=== PATIENT | female | born 1960 | race African-American/Black ===

== ENCOUNTER → 2016-10-11 | Outpatient (CLI) | payer MEDICAID, MEDICARE ==
--- NOTE | 2016-10-11 15:08 | RADIOLOGY REPORT (SQ) ---
EXAM DESCRIPTION: NM LIVER/SPLEEN SCAN COMPLETED DATE/TIME: 10/11/2016 2:18 pm REASON FOR STUDY: THROMBOCYTOPENIA D69.6 THROMBOCYTOPENIA, UNSPECIFIED K74.60 UNSPECIFIED CIRRHOSI S OF LIVER COMPARISON: None. RADIONUCLIDE AND DOSE: 5.22 millicuries Tc-99m Sulfur Colloid. The route of agent administration: Intravenous ADDITIONAL DRUGS AND DOSES: None. TECHNIQUE: Images of the upper abdomen acquired in multiple projections following radionuclide admin istration. LIMITATIONS: None. FINDINGS: Liver: Normal size. Homogeneous activity. No focal lesions. Spleen: Normal size. Homogeneous activity. No focal lesions. Other: No other significant findings. IMPRESSION: NORMAL LIVER SPLEEN SCAN. TECHNICAL DOCUMENTATION: JOB ID: [id number] [employer]- All Rights Reserved
== END ==
LOC: RAD 10:50
PROVIDERS: ATTEND Internal Medicine Medical Oncology
DX: D69.6 Thrombocytopenia, unspecified (principal); K74.60 Unspecified cirrhosis of liver
CPT/HCPCS: 78215; A9541

== ENCOUNTER → 2016-11-23 | Outpatient (CLI) | payer MEDICARE ==
--- NOTE | 2016-11-24 11:00 | WOMENS IMAGING REPORT ---
EXAM DESCRIPTION: BILAT SCREENING MAMMO W/CAD COMPLETED DATE/TIME: 11/23/2016 11:40 am REASON FOR STUDY: Z12.31, ROUTINE SCREENING MAMMO Z12.31 ENCNTR SCREEN MAMMOGRAM FOR MALIGNANT NEOP LASM OF LOTUS COMPARISON: Multiple since 2010 TECHNIQUE: Standard craniocaudal and mediolateral oblique views of each breast recorded using digita l acquisition. LIMITATIONS: Pacemaker artifact right far upper outer quadrant on the MLO view FINDINGS: Findings present which are benign by mammographic criteria. No suspicious masses, calcifi cations or architectural distortion. Pertinent benign findings: Stable calcifications bilaterally Read with the assistance of CAD. .[facility] - R2 Cenova Version 1.3 .[facility] - R2 Cenova Version 1.3 .[facility] - R2 Cenova Version 2.4 .[facility] - R2 Cenova Version 2.4 .[facility] - R2 Lamination Assembler Version 9.2 Benign mammographic findings may include one or more of the following: Smooth masses, popcorn/rim/co arse calcifications, asymmetries, post-procedure changes, and lesions with long-standing stability. IMPRESSION: BENIGN MAMMOGRAPHIC FINDINGS. BIRADS 2 BREAST DENSITY: c. The breasts are heterogeneously dense, which may obscure small masses. BIRAD: 2 BENIGN FINDING(S) RECOMMENDATION: ROUTINE SCREENING Please consider bilateral screening tomosynthesis in November 2017 given heterogeneously dense tissue COMMENT: The patient has been notified of the results by letter per SA requirements. Additional no tification policies are in place for contacting patient with suspicious or incomplete findings. Quality ID #[id number]: The [employer] recommends an annual screening mammogram for women aged 40 years or over. This facility utilizes a reminder system to ensure that all patients receive reminder letters, and/or direct phone calls for appointments. This includes reminders for routine scr eening mammograms, diagnostic mammograms, or other Breast Imaging Interventions when appropriate. Th is patient will be placed in the appropriate reminder system. The [employer] (ACR) has developed recommendations for screening MRI of the breast s in certain patient populations, to be used in conjunction with mammography. Breast MRI surveillanc e may be appropriate for women with more than 20% lifetime risk of developing breast cancer as deter mined by genetic testing, significant family history of the disease, or history of mantle radiation f or Hodgkins Disease. ACR Practice Guidelines 2008. TECHNICAL DOCUMENTATION: FINDING NUMBER: (1) ASSESSMENT: (1) JOB ID: [id number] [email or web address] [facility] [email or web address]- All Rights Reserved
== END ==
LOC: WI 13:30
PROVIDERS: ATTEND Nurse Practitioner
DX: Z12.31 Encounter for screening mammogram for malignant neoplasm of breast (principal)
CPT/HCPCS: 77067; G0202

== ENCOUNTER → 2017-01-30 | Outpatient (CLI) | payer MEDICARE ==
--- NOTE | 2017-01-30 10:02 | RADIOLOGY REPORT (SQ) ---
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 Images stored on PACS. LIMITATIONS: None. FINDINGS: RIGHT CAROTID CCA Velocities: Within normal limits. ICA Velocities Peak systolic 0.54 m/s. End diastolic 0.18 m/s. Proximal ICA/CCA peak systolic ratio 3.0. There is calcific plaque shadowing the origin of the right internal carotid artery at the bifurcation . Turbulent flow is present. Although the peak systolic and end-diastolic velocities distal to the plaque are within normal limits, the ICA to CCA ratio is elevated, and 50 to 69% stenosis right ICAs is suspected within the plaque. LEFT CAROTID CCA Velocities: Within normal limits. ICA Velocities Peak systolic 0.64 m/s. End diastolic 0.22 m/s. Proximal ICA/CCA peak systolic ratio 3.2. There is calcific plaque shadowing the origin of the left internal carotid artery at the bifurcation. Turbulent flow is present. Although the peak systolic and end-diastolic velocities distal to the p laque are within normal limits, the ICA to CCA ratio is elevated, and 50 to 69% stenosis left ICAs is suspected within the plaque. VERTEBRAL ARTERIES: Antegrade flow. Normal waveforms. SUBCLAVIAN ARTERIES: Not evaluated OTHER: No other significant finding. IMPRESSION: Very heavy carotid bifurcation calcifications which shadow origins of the right and left ICA. ICA to CCA ratio suggests 50 to 69% diameter narrowing. Correlation with cross-sectional imag ing with CTA or MRA is indicated for followup COMMENT: Quality ID #[id number]: Velocity criteria are extrapolated from the diameter data as defined by t he Society of Radiologists in Ultrasound Consensus Conference. Radiology 2003: 229; 340-346. TECHNICAL DOCUMENTATION: JOB ID: [id number]- All Rights Reserved
--- NOTE | 2017-02-02 10:00 | XCELERA REPORT ---
[address] [address] Transthoracic Echocardiogram Report Name: SARAH RACHEL Age: 56 yrs Gender: Female : 1960 Patient Status: Outpatient Patient Location: Study Date: 01/30/2017 08:24 AM Height: 67 in Weight: 163 lb BSA: 1.9 m2 Procedure: A complete two-dimensional transthoracic echocardiogram was performed (2D, M-mode, spectral and color flow Doppler). The study was technically difficult with many images being suboptimal in quality. Reason For Study: CEREBRAL INFARCTION Ordering Physician: THIAGO COLIN Performed By: Shawnee Montes De Oca Interpretation Summary The study was technically difficult with many images being suboptimal in quality. The Ejection Fraction estimate is 35-40% Left ventricular systolic function is moderately reduced. Doppler measurements suggest pseudonormalized left ventricular relaxation, which is associated with grade II/IV or mild to moderate diastolic dysfunction Not all wall segments were well visualized. Septal motion is consistent with post-operative state There is mild concentric left ventricular hypertrophy. The left ventricle is grossly normal size. The right ventricular systolic function is mildly reduced. The left atrium is moderately dilated. The right atrium is moderately dilated. There is a moderate amount of mitral regurgitation Probable Mild Mitral stenosis There is moderate to severe aortic stenosis There is a peak gradient of 45, mean 25 mm of Hg. There is a moderate to severe amount of aortic regurgitation There is a severe amount of tricuspid regurgitation There is mild to moderate pulmonary hypertension by echo Right ventricular systolic pressure is estimated to be elevated at 40- 50mmHg. The pulmonic valve is not well visualized. The aortic root is not well visualized. The inferior vena cava appeared dilated and decreased < 50% with respiration (RAP 15-20 mmHg) Minimal pericardial effusion. Pacemaker wire noted. Consider ARMIDA if clinically indicated. May consider mobile cardiac telemetry monitoring (MCT) for ruling out transient AFIB. MMode/2D Measurements & Calculations RVDd: 3.6 cm LVIDd: 5.8 cm FS: 10.7 % MV Diam: IVSd: 1.3 cm LVIDs: 5.2 cm EDV(Teich): 2.0 cm LVPWd: 1.3 cm 167.6 ml ESV(Teich): 129.2 ml EF(Teich): 22.9 % Ao root diam: LVOT diam: 2.0 cm LA A2Cs: 29.9 cm2LA A4Cs: 2.5 cm LVOT area: 3.2 cm2 29.1 cm2 Ao root area: 5.1 cm2 LA dimension: 4.9 cm LA length: 6.3 cm LA Vol Index (BP): LA Volume: 118.1 ml 63.7 ml/m2 Time Measurements MM R-R int: 0.88 sec MM HR: 68.0 BPM Doppler Measurements & Calculations MV E max lizette: MV V2 max: MV P1/2t max lizette: Ao V2 max: 132.0 cm/sec 179.2 cm/sec 134.5 cm/sec 348.2 cm/sec MV A max lizette: MV max PG: MV P1/2t: 66.8 msec Ao max P.7 cm/sec 12.8 mmHg MVA(P1/2t): 3.3 cm2 48.5 mmHg MV E/A: 0.89 MV V2 mean: MV dec slope: Ao V2 mean: 99.8 cm/sec 234.4 cm/sec MV mean P.7 cm/sec2 Ao mean P.0 mmHg 26.1 mmHg MV V2 VTI: 49.9 cm Ao V2 VTI: MV area (1 diam): 75.1 cm 3.2 cm2 ELVIS(I,D): 0.74 cm2 MVA(VTI): 1.1 cm2 ELVIS(V,D): MV Flow area (1diam): 3.2 cm2 0.70 cm2 AI max lizette: LV V1 max PG: MR max lizette: MR(RF 1 diam): 426.2 cm/sec 2.4 mmHg 546.8 cm/sec 38.3 % AI max PG: LV V1 mean PG: MR max P.7 mmHg 1.2 mmHg 119.6 mmHg AI dec slope: LV V1 max: 370.6 cm/sec2 77.5 cm/sec AI P1/2t: LV V1 mean: 336.9 msec 49.6 cm/sec LV V1 VTI: 17.7 cm SV(MV 1 diam): PA V2 max: TR max lizette: RF(MV,Ao)(1 158.8 ml 83.9 cm/sec 297.5 cm/sec diam): -1.4 SI(MV 1 diam): PA max PG: TR max P.4 mmHgRF(MV,LVOT) 85.6 ml/m2 2.8 mmHg (1diam): 0.65 SV(LVOT): 55.8 ml Left Ventricle The left ventricle is grossly normal size. There is mild concentric left ventricular hypertrophy. Left ventricular systolic function is moderately reduced. The Ejection Fraction estimate is 35-40%. Doppler measurements suggest pseudonormalized left ventricular relaxation, which is associated with grade II/IV or mild to moderate diastolic dysfunction. Not all wall segments were well visualized. Septal motion is consistent with post- operative state. Right Ventricle The right ventricle is mildly dilated. The right ventricular systolic function is mildly reduced. Atria The right atrium is moderately dilated. The left atrium is moderately dilated. Interarterial septum not well visualized and not well dopplered. Cannot comment on ASD/PFO presence. Mitral Valve There is mild mitral annular calcification. There is mild mitral leaflet calcification. Probable Mild Mitral stenosis. There is a moderate amount of mitral regurgitation. Aortic Valve The aortic valve is moderately calcified. There is moderate to severe aortic stenosis. There is a peak gradient of 45, mean 25 mm of Hg. There is a moderate to severe amount of aortic regurgitation. Tricuspid Valve The tricuspid valve is not well visualized secondary to technical limitations. There is no tricuspid stenosis. There is a severe amount of tricuspid regurgitation. There is mild to moderate pulmonary hypertension by echo. Right ventricular systolic pressure is estimated to be elevated at 40-50mmHg. Pulmonic Valve The pulmonic valve is not well visualized. Great Vessels The aortic root is not well visualized. The inferior vena cava appeared dilated and decreased < 50% with respiration (RAP 15-20 mmHg). Effusions Minimal pericardial effusion. Incidental Findings Pacemaker wire noted. Consider ARMIDA if clinically indicated. May consider mobile cardiac telemetry monitoring (MCT) for ruling out transient AFIB. : THIAGO COLIN > Nadine Grubbs
== END ==
LOC: SP 07:32
PROVIDERS: ATTEND Internal Medicine
DX: I63.40 Cerebral infarction due to embolism of unspecified cerebral artery (principal)
CPT/HCPCS: 93306; 93880

== ENCOUNTER 2017-02-10 06:14 | Emergency (ER) | payer MEDICARE ==
--- NOTE | 2017-02-10 07:31 | ER Document Report ---
HPI - HPI Patient complains to provider of: can't hear out of right ear this morning Onset: This morning Onset/Duration: Sudden Pain Level: 4 Context: 56-year-old female woke up this morning not able to hear out of her right ear. She thinks that there is something in her ear. No recent upper respiratory infection. No fever. She feels like something is draining in her ear. Associated Symptoms: None Exacerbated by: Denies Relieved by: Denies Similar symptoms previously: No Recently seen / treated by doctor: No - ROS ROS below otherwise negative: Yes Systems Reviewed and Negative: Yes All other systems reviewed and negative - REPRODUCTIVE Reproductive: DENIES: : - DERM Skin Color: Normal Past Medical History - General Information source: Patient - Social History Smoking Status: Current Every Day Smoker Frequency of alcohol use: None Drug Abuse: None Lives with: Family Family History: CAD - Past Medical History Cardiac Medical History: Reports: Hx Heart Attack - 2008 2014, Hx Hypercholesterolemia, Hx Hypertension, Hx Heart Murmur Pulmonary Medical History: Reports: Hx Pneumonia Renal/ Medical History: Reports: Hx End Stage Renal Disease. Denies: Hx Peritoneal Dialysis GI Medical History: Musculoskeltal Medical History: Infectious Medical History: Reports: Hx HIV - 2006 Past Surgical History: Reports: Hx Cardiac Surgery - pacemaker/defib. Denies: Hx Hysterectomy - Immunizations Hx Diphtheria, Pertussis, Tetanus Vaccination: Yes Hx Pneumococcal Vaccination: 02/18/14 Vertical Provider Document - CONSTITUTIONAL Agree With Documented VS: Yes Exam Limitations: No Limitations - INFECTION CONTROL TRAVEL OUTSIDE OF THE [place] IN LAST 30 DAYS: No - HEENT HEENT: Normal ENT Exam Notes: Rinne: BC greater than AC right ear. AC greater than BC left ear. Escamilla test: Lateralization of sound to left ear. - NECK Neck: Supple. negative: Lymphadenopathy-Left, Lymphadenopathy-Right - RESPIRATORY O2 Sat by Pulse Oximetry: 99 - NEURO Level of Consciousness: Awake, Alert, Appropriate - DERM Integumentary: Warm, Dry, No Rash Course - Vital Signs Vital signs: Temp Pulse Resp BP Pulse Ox 97.5 F 79 19 134/60 H 99 02/10/17 06:23 02/10/17 06:23 02/10/17 06:23 02/10/17 06:23 02/10/17 06:23 Discharge - Discharge Clinical Impression: decreased air conduction hearing rt ear Condition: Good Disposition: HOME, SELF-CARE Instructions: ENT Additional Instructions: call for appointment with Ears Nose and Throat doctor next week to er if you develop any new or worsening symptoms Please complete the patient satisfaction survey if you get one, and return it.. If you do not receive a survey, then you can go to the [facility] website, [email or web address] and place your comments about your very good care. Thank you very much. It was a pleasure being your medical provider today.
[2017-02-10 08:01] VITALS: BP 126/57
== END 2017-02-10 08:00 | disposition home or self-care (01) ==
LOC: ER 06:14
DX: H91.91 Unspecified hearing loss, right ear (principal); F17.200 Nicotine dependence, unspecified, uncomplicated
CPT/HCPCS: 99282

== ENCOUNTER 2017-02-27 11:42 | Outpatient (CLI) | payer MEDICARE ==
[~2017-02-27 11:42] MED LIST: ACETAMINOPHEN 325 MG TABLET PO PRN; DIPHENHYDRAMINE HCL 25 MG CAPSULE PO PRN; FUROSEMIDE INJ/PF 20 MG/2 ML SDV IV PRN
[2017-02-27 12:19] LABS: HEMATOCRIT 25.5 % (36.0-47.0); HEMOGLOBIN 8.3 g/dL (12.0-15.5); HGB HCT DIFFERENCE -0.6; MEAN CORPUSCULAR HEMOGLOBIN 32.7 pg (27.0-33.4); MEAN CORPUSCULAR HGB CONC 32.7 g/dL (32.0-36.0); MEAN CORPUSCULAR VOLUME 100 fl (80-97); RED BLOOD COUNT 2.55 10^6/uL (3.72-5.28); RED CELL DISTRIBUTION WIDTH 15.3 % (11.5-14.0); WHITE BLOOD COUNT 3.9 10^3/uL (4.0-10.5)
[2017-02-27] MEDS ORDERED: NORMAL SALINE 250 ML IV PRN (12:23)
[2017-02-27 17:58] VITALS: BP 112/55
[2017-02-27 18:58] LABS: HEMATOCRIT 32.6 % (36.0-47.0); HGB HCT DIFFERENCE 0.4; MEAN CORPUSCULAR HEMOGLOBIN 32.2 pg (27.0-33.4); MEAN CORPUSCULAR HGB CONC 33.6 g/dL (32.0-36.0); RED BLOOD COUNT 3.41 10^6/uL (3.72-5.28); RED CELL DISTRIBUTION WIDTH 17.5 % (11.5-14.0); WHITE BLOOD COUNT 4.3 10^3/uL (4.0-10.5)
[2017-02-27 19:31] LABS: MEAN CORPUSCULAR VOLUME 96 fl (80-97)
== END 2017-02-27 18:54 | disposition home or self-care (01) ==
LOC: II 11:42 → 5TH 11:49 → II 18:54
PROVIDERS: ATTEND Internal Medicine Medical Oncology
PROC: 30233N1 Transfusion of Nonautologous Red Blood Cells into Peripheral Vein, Percutaneous Approach (ICD-10-PCS; principal; 2017-02-27)
DX: D64.9 Anemia, unspecified (principal); B20 Human immunodeficiency virus [HIV] disease; N18.6 End stage renal disease; K74.60 Unspecified cirrhosis of liver
CPT/HCPCS: 86900; 86901; 36415; 36430; 86850; 85027; 86920; P9016; A9270 ×2

== ENCOUNTER 2017-04-19 11:12 | Outpatient (CLI) | payer MEDICARE ==
[2017-04-19 11:54] LABS: HEMATOCRIT 19.9 % (36.0-47.0); HGB HCT DIFFERENCE 0.2; MEAN CORPUSCULAR HEMOGLOBIN 33.4 pg (27.0-33.4); MEAN CORPUSCULAR HGB CONC 33.7 g/dL (32.0-36.0); MEAN CORPUSCULAR VOLUME 99 fl (80-97); RED BLOOD COUNT 2.01 10^6/uL (3.72-5.28); RED CELL DISTRIBUTION WIDTH 15.8 % (11.5-14.0)
[2017-04-19 12:24] LABS: HEMOGLOBIN 6.7 g/dL (12.0-15.5)
[2017-04-19] MEDS ORDERED: NORMAL SALINE 250 ML IV PRN (12:51)
[2017-04-19 22:01] VITALS: BP 116/47
== END 2017-04-19 22:18 | disposition home or self-care (01) ==
LOC: II 11:12 → 2N 11:21 → II 22:18
PROVIDERS: ATTEND Internal Medicine Nephrology
PROC: 30233N1 Transfusion of Nonautologous Red Blood Cells into Peripheral Vein, Percutaneous Approach (ICD-10-PCS; principal; 2017-04-19)
DX: N18.9 Chronic kidney disease, unspecified (principal); D63.1 Anemia in chronic kidney disease
CPT/HCPCS: 86900; 86901; 36415; 36430; 86850; 86920; P9016; A9270 ×2; J1940

== ENCOUNTER 2017-05-01 10:29 | Outpatient (CLI) | payer MEDICARE ==
[2017-05-01 10:52] LABS: HEMATOCRIT 20.4 % (36.0-47.0); MEAN CORPUSCULAR HEMOGLOBIN 32.7 pg (27.0-33.4); MEAN CORPUSCULAR HGB CONC 33.3 g/dL (32.0-36.0); MEAN CORPUSCULAR VOLUME 98 fl (80-97); RED BLOOD COUNT 2.07 10^6/uL (3.72-5.28); RED CELL DISTRIBUTION WIDTH 18.2 % (11.5-14.0); WHITE BLOOD COUNT 4.7 10^3/uL (4.0-10.5)
[2017-05-01 11:24] LABS: HEMOGLOBIN 6.8 g/dL (12.0-15.5)
[2017-05-01] MEDS ORDERED: NORMAL SALINE 250 ML IV PRN (11:26)
[2017-05-01 15:50] VITALS: BP 137/61
[2017-05-01 16:57] LABS: HEMATOCRIT 25.6 % (36.0-47.0); HEMOGLOBIN 8.6 g/dL (12.0-15.5); HGB HCT DIFFERENCE 0.2; MEAN CORPUSCULAR HEMOGLOBIN 31.3 pg (27.0-33.4); MEAN CORPUSCULAR HGB CONC 33.5 g/dL (32.0-36.0); RED BLOOD COUNT 2.74 10^6/uL (3.72-5.28); RED CELL DISTRIBUTION WIDTH 19.5 % (11.5-14.0); WHITE BLOOD COUNT 5.3 10^3/uL (4.0-10.5)
[2017-05-01 17:27] LABS: MEAN CORPUSCULAR VOLUME 94 fl (80-97)
== END 2017-05-01 16:55 | disposition home or self-care (01) ==
LOC: II 10:29 → 5TH 11:01 → II 16:55
PROVIDERS: ATTEND Internal Medicine Medical Oncology
PROC: 30233N1 Transfusion of Nonautologous Red Blood Cells into Peripheral Vein, Percutaneous Approach (ICD-10-PCS; principal; 2017-05-01)
DX: D64.9 Anemia, unspecified (principal); N18.6 End stage renal disease
CPT/HCPCS: 86900; 86901; 36415; 36430; 86850; 85027; 86920; 96374; P9016; A9270 ×2; J1940

== ENCOUNTER 2017-05-11 10:35 | Emergency (ER) | payer MEDICARE ==
--- NOTE | 2017-05-11 11:12 | ER Document Report ---
ED Medical Screen (RME) - General Mode of Arrival: Ambulatory Information source: Patient TRAVEL OUTSIDE OF THE [place] IN LAST 30 DAYS: No <ELEAZAR LEVIN - Last Filed: 05/11/17 11:32> <DARRON COYLE - Last Filed: 05/11/17 13:04> - General Chief Complaint: Rectal Bleeding Stated Complaint: RECTAL BLEEDING Time Seen by Provider: 05/11/17 10:59 Notes: Patient is a 56 year old female presenting to the emergency department complaining of blood in stool onset a week. Patient describes the stool as black and sticky. Patient states she was receiving dialysis with Dr. Johnston this morning when she was instructed to come to the ER for her symptom. Patient states she has had numerous blood transfusion in the past, her most recent being 10 days ago. Patients PCP is Dr. Colin. I have greeted and performed a rapid initial assessment of this patient. A comprehensive ED assessment and evaluation of the patient, analysis of test results and completion of the medical decision making process will be conducted by additional ED providers. (ELEAZAR LEVIN) - Related Data Allergies/Adverse Reactions: Penicillins Allergy (Severe, Verified 05/11/17 10:37) Rash adhesive Allergy (Verified 05/11/17 10:37) cinacalcet [From Sensipar] Allergy (Verified 05/11/17 10:37) Past Medical History - Social History Chew tobacco use (# tins/day): No Frequency of alcohol use: None Drug Abuse: None - Past Medical History Cardiac Medical History: Reports: Hx Heart Attack - 2008 2014, Hx Hypercholesterolemia, Hx Hypertension, Hx Heart Murmur Denies: Hx Coronary Artery Disease Pulmonary Medical History: Reports: Hx Pneumonia Denies: Hx Asthma, Hx Bronchitis, Hx COPD, Hx Tuberculosis Neurological Medical History: Denies: Hx Cerebrovascular Accident, Hx Seizures Renal/ Medical History: Reports: Hx End Stage Renal Disease. Denies: Hx Peritoneal Dialysis GI Medical History: Musculoskeltal Medical History: Denies Hx Arthritis Psychiatric Medical History: Denies: Hx Depression Infectious Medical History: Reports: Hx HIV - 2006 Past Surgical History: Reports: Hx Cardiac Surgery - pacemaker/defib. Denies: Hx Hysterectomy - Immunizations Hx Diphtheria, Pertussis, Tetanus Vaccination: No History of Influenza Vaccine for 02/2017 - 07/2017 Season: Yes Influenza Administration Date for 02/2017 - 07/2017 Season: 02/18/17 <ELEAZAR LEVIN - Last Filed: 05/11/17 11:32> Physical Exam <ELEAZAR LEVIN - Last Filed: 05/11/17 11:32> <DARRON COYLE - Last Filed: 05/11/17 13:04> - Vital signs Vitals: Temp Pulse Resp BP Pulse Ox 97.7 F 96 20 114/54 L 99 05/11/17 10:41 05/11/17 10:41 05/11/17 10:41 05/11/17 10:41 05/11/17 10:41 - Notes Notes: GENERAL: Alert, interacts well. No acute distress. ABDOMEN: Soft, non-tender. Non-distended. Bowel sounds present in all 4 quadrants. (ELEAZAR LEVIN) Right upper extremity AV fistula has palpable thrill. (DARRON COYLE) Course - Laboratory Result Diagrams: 05/11/17 12:50 05/11/17 11:56 <DARRON COYLE - Last Filed: 05/11/17 13:04> - Vital Signs Vital signs: Temp Pulse Resp BP Pulse Ox 97.7 F 96 20 114/54 L 99 05/11/17 10:41 05/11/17 10:41 05/11/17 10:41 05/11/17 10:41 05/11/17 10:41 - Laboratory Laboratory results interpreted by me: 05/11/17 11:56 Potassium 3.4 L Creatinine 3.32 H Est GFR ( Amer) 17 L Est GFR (Non-Af Amer) 14 L Calcium 7.9 L Alkaline Phosphatase 130 H Total Protein 5.4 L Albumin 2.7 L Doctor's Discharge <ELEAZAR LEVIN - Last Filed: 05/11/17 11:32> <DARRON COYLE - Last Filed: 05/11/17 13:04> - Discharge Referrals: THIAGO COLIN MD [Primary Care Provider] - Follow up as needed Scribe Documentation - Scribe Written by Scribe:: Yolis Collins, 05/11/2017 11:31 acting as scribe for :: Shaila <LEEAZAR LEVIN - Last Filed: 05/11/17 11:32>
[2017-05-11 12:49] LABS: ALANINE AMINOTRANSFERASE 21 U/L (9-52); ALBUMIN 2.7 g/dL (3.5-5.0); ALKALINE PHOSPHATASE 130 U/L (38-126); ANION GAP 9 (5-19); ASPARTATE AMINO TRANSFERASE 28 U/L (14-36); BILIRUBIN,DIRECT 0.2 mg/dL (0.0-0.4); BILIRUBIN,TOTAL 0.2 mg/dL (0.2-1.3); BLOOD UREA NITROGEN 17 mg/dL (7-20); CALCIUM 7.9 mg/dL (8.4-10.2); CARBON DIOXIDE 30 mmol/L (22-30); CHLORIDE 102 mmol/L (98-107); CREATININE RESULT 3.32 mg/dL (0.52-1.25); GLUCOSE 100 mg/dL (75-110); POTASSIUM 3.4 mmol/L (3.6-5.0); SODIUM 141.1 mmol/L (137-145); TOTAL PROTEIN 5.4 g/dL (6.3-8.2)
--- NOTE | 2017-05-11 12:53 | ER Document Report ---
ED General - General Chief Complaint: Rectal Bleeding Stated Complaint: RECTAL BLEEDING Time Seen by Provider: 05/11/17 10:59 Mode of Arrival: Ambulatory Information source: Patient Notes: 56-year-old female on hemodialysis history of anemia GI bleeds presents with complaints of rectal bleeding of 1 month duration with generalized weakness. Patient denies any fevers or chills. Patient denies any shortness of breath denies any chest pain. Patient notes she had dialysis today. TRAVEL OUTSIDE OF THE [place] IN LAST 30 DAYS: No - HPI Onset: Other Onset/Duration: Persistent Quality of pain: No pain Severity: Mild Pain Level: Denies Associated symptoms: Weakness Exacerbated by: Denies Relieved by: Denies Similar symptoms previously: Yes Recently seen / treated by doctor: Yes - Related Data Allergies/Adverse Reactions: Penicillins Allergy (Severe, Verified 05/11/17 10:37) Rash adhesive Allergy (Verified 05/11/17 10:37) cinacalcet [From Sensipar] Allergy (Verified 05/11/17 10:37) Past Medical History - General Information source: Patient - Social History Smoking Status: Current Every Day Smoker Cigarette use (# per day): Yes Chew tobacco use (# tins/day): No Smoking Education Provided: No Frequency of alcohol use: None Drug Abuse: None Family History: CAD Patient has suicidal ideation: No Patient has homicidal ideation: No - Past Medical History Cardiac Medical History: Reports: Hx Heart Attack - 2008 2014, Hx Hypercholesterolemia, Hx Hypertension, Hx Heart Murmur Denies: Hx Coronary Artery Disease Pulmonary Medical History: Reports: Hx Pneumonia Denies: Hx Asthma, Hx Bronchitis, Hx COPD, Hx Tuberculosis Neurological Medical History: Denies: Hx Cerebrovascular Accident, Hx Seizures Renal/ Medical History: Reports: Hx End Stage Renal Disease. Denies: Hx Peritoneal Dialysis GI Medical History: Musculoskeltal Medical History: Denies Hx Arthritis Psychiatric Medical History: Denies: Hx Depression Infectious Medical History: Reports: Hx HIV - 2006 Past Surgical History: Reports: Hx Cardiac Surgery - pacemaker/defib. Denies: Hx Hysterectomy - Immunizations Hx Diphtheria, Pertussis, Tetanus Vaccination: No Hx Pneumococcal Vaccination: 02/18/14 Review of Systems - Review of Systems Notes: REVIEW OF SYSTEMS: CONSTITUTIONAL : Denies fever, chills, or sweats. Denies recent illness. EENT: Denies eye, ear, throat, or mouth pain or symptoms. Denies nasal or sinus congestion or discharge. Denies throat, tongue, or mouth swelling or difficulty swallowing. CARDIOVASCULAR: Denies chest pain. Denies palpitations or racing or irregular heart beat. Denies ankle edema. RESPIRATORY: Denies cough, cold, or chest congestion. Denies shortness of breath, difficulty breathing, or wheezing. GASTROINTESTINAL: Admits to rectal bleeding GENITOURINARY: Denies difficulty urinating, painful urination, burning, frequency, blood in urine, or discharge. FEMALE GENITOURINARY: Denies vaginal bleeding, heavy or abnormal periods, irregular periods. Denies vaginal discharge or odor. MUSCULOSKELETAL: Denies back or neck pain or stiffness. Denies joint pain or swelling. SKIN: Denies rash, lesions or sores. HEMATOLOGIC : Denies easy bruising or bleeding. LYMPHATIC: Denies swollen, enlarged glands. NEUROLOGICAL: Denies confusion or altered mental status. Denies passing out or loss of consciousness. Denies dizziness or lightheadedness. Denies headache. Denies weakness or paralysis or loss of use of either side. Denies problems with gait or speech. Denies sensory loss, numbness, or tingling. Denies seizures. PSYCHIATRIC: Denies anxiety or stress. Denies depression, suicidal ideation, or homicidal ideation. ALL OTHER SYSTEMS REVIEWED AND NEGATIVE. PHYSICAL EXAMINATION: GENERAL: Well-appearing, well-nourished and in no acute distress. HEAD: Atraumatic, normocephalic. EYES: Pupils equal round and reactive to light, extraocular movements intact, conjunctiva are normal. ENT: Nares patent, oropharynx clear without exudates. Moist mucous membranes. NECK: Normal range of motion, supple without lymphadenopathy LUNGS: Crackles at the bases HEART: Regular rate and rhythm without murmurs ABDOMEN: Soft, nontender, nondistended abdomen. No guarding, no rebound. No masses appreciated. Female : deferred Musculoskeletal: Normal range of motion, no pitting or edema. No cyanosis. NEUROLOGICAL: Cranial nerves grossly intact. Normal speech, normal gait. Normal sensory, motor exams PSYCH: Normal mood, normal affect. SKIN: Warm, Dry, normal turgor, no rashes or lesions noted. Dictation was performed using [employer] voice recognition software Physical Exam - Vital signs Vitals: Temp Pulse Resp BP Pulse Ox 97.7 F 96 20 114/54 L 99 12/22/17 10:41 05/11/17 10:41 05/11/17 10:41 05/11/17 10:41 05/11/17 10:41 Course - Re-evaluation Re-evalutation: 05/11/17 12:53 Patient is adamant that she is here only for CT she does not want any blood work performed I have pleaded with her and she defers. There is no way to know if she is anemic if I do not have a CBC, she does not even wish to have an IV placed 05/11/17 13:49 nurse was able to ocnvince patient ot geta cbc, she is noted ot by anemic requiring transfusion. pt is adamant she does not get admitted, i have tried many times to plead with her , she will atleast let me place iv now to transfuse 05/11/17 15:13 CT findings were discussed with the patient, she is adamant that she is going to leave, I will give her some Lasix 05/11/17 15:18 After performing a Medical Screening Examination, I spoke with the patient at length in regards to leaving the hospital against medical advice. I do not believe the patient should leave but the patient is alert oriented x4, understands the risks and benefits of staying and leaving including disability and . Pt understands that he can return at any time for further care and is more than welcome to do so. Pt verbalizes this understanding. - Vital Signs Vital signs: Temp Pulse Resp BP Pulse Ox 97.7 F 96 20 114/54 L 99 05/11/17 10:41 05/11/17 10:41 05/11/17 10:41 05/11/17 10:41 05/11/17 10:41 - Laboratory Result Diagrams: 05/11/17 12:50 05/11/17 11:56 Laboratory results interpreted by me: 05/11/17 05/11/17 05/11/17 11:56 12:50 14:15 RBC 1.94 L Hgb 6.4 L Hct 19.6 L MCV 101 H RDW 20.4 H Plt Count 99 L Potassium 3.4 L Creatinine 3.32 H Est GFR ( Amer) 17 L Est GFR (Non-Af Amer) 14 L Calcium 7.9 L Alkaline Phosphatase 130 H Total Protein 5.4 L Albumin 2.7 L Crossmatch See Detail - Diagnostic Test Radiology reviewed: Image reviewed, Reports reviewed Critical Care Note - Critical Care Note Total time excluding time spent on procedures (mins): 45 Comments: 45 minutes of critical care time spent in direct contact evaluating and reevaluating the patient, treating symptoms, reviewing labs and studies and speaking with family and consultants excluding any procedures Discharge - Discharge Clinical Impression: ESRD on dialysis Anemia Qualifiers: Iron deficiency anemia type: chronic blood loss Qualified Code(s): D50.0 - Iron deficiency anemia secondary to blood loss (chronic) GI bleed Qualifiers: GI bleed type/associated pathology: unspecified gastrointestinal hemorrhage type Qualified Code(s): K92.2 - Gastrointestinal hemorrhage, unspecified Condition: Stable Disposition: AGAINST MEDICAL ADVICE Additional Instructions: I would have wanted to admit you to the hospital however you are choosing to leave AGAINST MEDICAL ADVICE, you must return for reevaluation at any time Referrals: THIAGO COLIN MD [Primary Care Provider] - Follow up tomorrow
[2017-05-11 13:19] LABS: PROTHROMBIN TIME 13.7 SEC (11.4-15.4)
[2017-05-11 13:21] LABS: ABSOLUTE EOSINOPHILS # (AUTO) 0.1 10^3/uL (0.0-0.6); ABSOLUTE LYMPHOCYTES (AUTO) 0.7 10^3/uL (0.5-4.7); ABSOLUTE MONOCYTES (AUTO) 0.5 10^3/uL (0.1-1.4); ABSOLUTE NEUT (AUTO) 2.8 10^3/uL (1.7-8.2); BASOPHILS % (AUTO) 0.7 % (0-2); EOSINOPHILS % (AUTO) 3.6 % (0-6); HEMATOCRIT 19.6 % (36.0-47.0); HGB HCT DIFFERENCE -0.4; LYMPHOCYTES % (AUTO) 17.3 % (13-45); MEAN CORPUSCULAR HEMOGLOBIN 32.8 pg (27.0-33.4); MEAN CORPUSCULAR HGB CONC 32.5 g/dL (32.0-36.0); RED BLOOD COUNT 1.94 10^6/uL (3.72-5.28); RED CELL DISTRIBUTION WIDTH 20.4 % (11.5-14.0); SEGMENTED NEUTROPHILS % (AUTO) 67.4 % (42-78); WHITE BLOOD COUNT 4.1 10^3/uL (4.0-10.5)
[2017-05-11 13:46] LABS: HEMOGLOBIN 6.4 g/dL (12.0-15.5)
[2017-05-11 13:47] LABS: MEAN CORPUSCULAR VOLUME 101 fl (80-97)
[2017-05-11] MEDS ORDERED: NORMAL SALINE 250 ML IV PRN ×2 (13:48)
--- NOTE | 2017-05-11 15:06 | RADIOLOGY REPORT (SQ) ---
EXAM DESCRIPTION: CT ABD/PELVIS ORAL ONLY COMPLETED DATE/TIME: 05/11/2017 2:40 pm REASON FOR STUDY: GI bleed, on dialysis, can't have IV dye COMPARISON: CT abdomen pelvis 10/01/2015 TECHNIQUE: CT scan of the abdomen and pelvis performed without intravenous or oral contrast. Images reviewed with lung, soft tissue, and bone windows. Reconstructed coronal and sagittal MPR images revi ewed. All images stored on PACS. All CT scanners at this facility use dose modulation, iterative reconstruction, and/or weight based d osing when appropriate to reduce radiation dose to as low as reasonably achievable (ALARA). [facility]: Dose Right [facility]: CareDose [facility]: Dose Right [facility]: Teradose 4D [facility]: Smart Technologies RADIATION DOSE: CT Rad equipment meets quality standard of care and radiation dose reduction techniq ues were employed. CTDIvol: 9.4 mGy. DLP: 490 mGy-cm.mGy. LIMITATIONS: None. FINDINGS: LOWER CHEST: Marked cardiomegaly. Small to moderate pericardial effusion, similar compare d to 10/01/2015. Pacemaker leads over the right heart. Mild interstitial edema at the lung bases rig ht greater than left. NON-CONTRASTED LIVER, SPLEEN, ADRENALS: Evaluation limited by lack of IV contrast. No identified sign ificant masses. PANCREAS: No masses. No peripancreatic inflammatory changes. GALLBLADDER: Contracted, not well seen KIDNEYS AND URETERS: Small kidneys bilaterally, patient is on dialysis. Unchanged right-sided stagho rn calculus. No gross masses. AORTA AND RETROPERITONEUM: Very heavily calcified abdominal aorta and visceral branches. No abdomina l aortic aneurysm BOWEL AND PERITONEAL CAVITY: Small amount of ascites. Oral contrast is seen throughout the small bow el and colon to the level of the splenic flexure. No evidence of bowel obstruction. Moderate stool in the descending and sigmoid colon. APPENDIX: Normal. PELVIS, BLADDER, AND ABDOMINAL WALL:No abnormal masses. Small amount of ascites in the pelvis. Bladd er normal. Normal size female pelvic organs. 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 IMPRESSION: Diffuse anasarca with small the moderate pericardial effusion, bilateral lower lobe inte rstitial edema, ascites, and abdominal wall subcutaneous tissue edema. Oral contrast through the majority of the gastrointestinal tract without evidence of bowel obstructio n COMMENT: Quality ID # [id number]: Final reports with documentation of one or more dose reduction techniques (e.g., Automated exposure control, adjustment of the mA and/or kV according to patient size, use of iterative reconstruction technique) TECHNICAL DOCUMENTATION: JOB ID: [id number] [employer]- All Rights Reserved
[2017-05-11] MEDS ORDERED: FUROSEMIDE INJ/PF 40 MG/4 ML SDV IV ONE (15:13)
[2017-05-11 19:49] VITALS: BP 116/68
== END 2017-05-11 19:50 | disposition left against medical advice (07) ==
LOC: ER 10:35
DX: N18.6 End stage renal disease (principal); D50.0 Iron deficiency anemia secondary to blood loss (chronic); K92.2 Gastrointestinal hemorrhage, unspecified; R53.1 Weakness; Z99.2 Dependence on renal dialysis
CPT/HCPCS: 99285; 86900; 86901; 36415; 36430; 86850; 85025; 85610; 80053; 86920; 74176; P9016

== ENCOUNTER 2017-05-31 11:10 | Outpatient (CLI) | payer MEDICARE ==
[2017-05-31] MEDS ORDERED: NORMAL SALINE 250 ML IV PRN (12:11)
[2017-05-31 12:46] LABS: HEMATOCRIT 20.3 % (36.0-47.0); MEAN CORPUSCULAR HEMOGLOBIN 31.9 pg (27.0-33.4); MEAN CORPUSCULAR HGB CONC 31.4 g/dL (32.0-36.0); MEAN CORPUSCULAR VOLUME 102 fl (80-97); RED CELL DISTRIBUTION WIDTH 18.6 % (11.5-14.0)
[2017-05-31 13:23] LABS: HEMOGLOBIN 6.4 g/dL (12.0-15.5)
[2017-05-31 13:24] LABS: PLATELET COUNT 96 10^3/uL (150-450)
[2017-05-31 20:07] VITALS: BP 143/62
== END 2017-05-31 20:25 | disposition home or self-care (01) ==
LOC: II 11:10 → 2N 11:11 → II 20:25
PROVIDERS: ATTEND Internal Medicine Nephrology
PROC: 30233N1 Transfusion of Nonautologous Red Blood Cells into Peripheral Vein, Percutaneous Approach (ICD-10-PCS; principal; 2017-05-31)
DX: N18.9 Chronic kidney disease, unspecified (principal); D63.1 Anemia in chronic kidney disease
CPT/HCPCS: 86900; 86901; 36415; 36430; 86850; 86920; P9016; A9270 ×2; J1940; 96374

== ENCOUNTER 2017-06-03 14:37 | Emergency (ER) | payer MEDICARE ==
[2017-06-03] MEDS ORDERED: NORMAL SALINE 1000 ML 250 ML IV ONE (14:53)
--- NOTE | 2017-06-03 14:55 | ER Document Report ---
ED Medical Screen (RME) - General Chief Complaint: Pain All Over Stated Complaint: BODY ACHES/DIFFICULTY BREATHING Time Seen by Provider: 06/03/17 14:52 Mode of Arrival: Wheelchair Information source: Patient TRAVEL OUTSIDE OF THE [place] IN LAST 30 DAYS: No - HPI Patient complains to provider of: fever, weakness, cough Onset: Other - pt with 2 day h/o generalized arthralgias and myalgias with cough , fever, and weakness. She is ESRD on HD and did get flu shot this year - Related Data Allergies/Adverse Reactions: Penicillins Allergy (Severe, Verified 06/03/17 14:43) Rash adhesive Allergy (Verified 06/03/17 14:43) cinacalcet [From Sensipar] Allergy (Verified 06/03/17 14:43) Past Medical History - Past Medical History Cardiac Medical History: Reports: Hx Heart Attack - 2008 2014, Hx Hypercholesterolemia, Hx Hypertension, Hx Heart Murmur Denies: Hx Coronary Artery Disease Pulmonary Medical History: Reports: Hx Pneumonia Denies: Hx Asthma, Hx Bronchitis, Hx COPD, Hx Tuberculosis Neurological Medical History: Denies: Hx Cerebrovascular Accident, Hx Seizures Renal/ Medical History: Reports: Hx End Stage Renal Disease. Denies: Hx Peritoneal Dialysis GI Medical History: Musculoskeltal Medical History: Denies Hx Arthritis Psychiatric Medical History: Denies: Hx Depression Infectious Medical History: Reports: Hx HIV - 2005 Past Surgical History: Reports: Hx Cardiac Surgery - pacemaker/defib. Denies: Hx Hysterectomy - Immunizations Hx Diphtheria, Pertussis, Tetanus Vaccination: No History of Influenza Vaccine for 02/2017 - 07/2017 Season: Yes Influenza Administration Date for 02/2017 - 07/2017 Season: 02/18/17 Physical Exam - Vital signs Vitals: Temp Pulse Resp BP Pulse Ox 99.5 F 92 24 H 102/45 L 100 06/03/17 14:48 06/03/17 14:48 06/03/17 14:48 06/03/17 14:48 06/03/17 14:48 Course - Vital Signs Vital signs: Temp Pulse Resp BP Pulse Ox 99.5 F 92 24 H 102/45 L 100 06/03/17 14:48 06/03/17 14:48 06/03/17 14:48 06/03/17 14:48 06/03/17 14:48
[2017-06-03 15:56] LABS: A TYPE INFLUENZA AG POSITIVE (NEGATIVE); B INFLUENZA AG NEGATIVE (NEGATIVE)
--- NOTE | 2017-06-03 16:01 | RADIOLOGY REPORT (SQ) ---
EXAM DESCRIPTION: CHEST PA/LAT COMPLETED DATE/TIME: 06/03/2017 3:54 pm REASON FOR STUDY: sob COMPARISON: 12/16/2014 EXAM PARAMETERS: NUMBER OF VIEWS: two views TECHNIQUE: Digital Frontal and Lateral radiographic views of the chest acquired. RADIATION DOSE: NA LIMITATIONS: none FINDINGS: LUNGS AND PLEURA: Increased right pleural effusion and basilar opacity. Left lung is damián r. MEDIASTINUM AND HILAR STRUCTURES: No masses or contour abnormalities. HEART AND VASCULAR STRUCTURES: Heart enlarged. Mild vascular congestion. BONES: No acute findings. HARDWARE: Cardiac pacemaker defibrillator unchanged. OTHER: No other significant finding. IMPRESSION: Cardiac enlargement and vascular congestion. Increased right effusion and right basilar opacity. Likely pneumonia. TECHNICAL DOCUMENTATION: JOB ID: [id number] [employer]- All Rights Reserved
[2017-06-03 18:35] LABS: HEMATOCRIT 25.3 % (36.0-47.0); HEMOGLOBIN 8.3 g/dL (12.0-15.5); MEAN CORPUSCULAR HEMOGLOBIN 31.7 pg (27.0-33.4); RED BLOOD COUNT 2.63 10^6/uL (3.72-5.28); RED CELL DISTRIBUTION WIDTH 17.5 % (11.5-14.0); WHITE BLOOD COUNT 5.5 10^3/uL (4.0-10.5)
[2017-06-03 18:45] LABS: ALANINE AMINOTRANSFERASE 29 U/L (9-52); ALBUMIN 2.5 g/dL (3.5-5.0); ALKALINE PHOSPHATASE 84 U/L (38-126); ANION GAP 9 (5-19); ASPARTATE AMINO TRANSFERASE 55 U/L (14-36); BILIRUBIN,DIRECT 0.4 mg/dL (0.0-0.4); BILIRUBIN,TOTAL 0.4 mg/dL (0.2-1.3); BLOOD UREA NITROGEN 36 mg/dL (7-20); CALCIUM 7.5 mg/dL (8.4-10.2); CARBON DIOXIDE 26 mmol/L (22-30); CHLORIDE 100 mmol/L (98-107); GLUCOSE 76 mg/dL (75-110); POTASSIUM 4.4 mmol/L (3.6-5.0); SODIUM 134.7 mmol/L (137-145); TOTAL PROTEIN 5.2 g/dL (6.3-8.2)
[2017-06-03 18:58] LABS: ABSOLUTE LYMPHOCYTES# (MANUAL) 0.4 10^3/uL (0.5-4.7); ABSOLUTE MONOCYTES # (MANUAL) 0.8 10^3/uL (0.1-1.4); ABSOLUTE NEUTROPHILS# (MANUAL) 4.2 10^3/uL (1.7-8.2); BAND NEUTROPHILS % (MANUAL) 5 % (3-5); BASOPHILS % (MANUAL) 1 % (0-2); EOSINOPHILS % (MANUAL) 0 % (0-6); LYMPHOCYTES % (MANUAL) 7 % (13-45); MONOCYTES % (MANUAL) 15 % (3-13); SEGMENTED NEUTROPHILS % (MAN) 72 % (42-78); TOTAL CELLS COUNTED 100
[2017-06-03 19:00] LABS: ANISOCYTOSIS 1+; OVALOCYTES SLIGHT; PLATELET COMMENT DECREASED; POIKILOCYTOSIS SLIGHT
[2017-06-03 19:01] LABS: MEAN CORPUSCULAR VOLUME 96 fl (80-97); PLATELET COUNT 84 10^3/uL (150-450)
[2017-06-03 19:02] VITALS: BP 129/47
--- NOTE | 2017-06-03 19:55 | ER Document Report ---
ED General - General Chief Complaint: Pain All Over Stated Complaint: BODY ACHES/DIFFICULTY BREATHING Time Seen by Provider: 06/03/17 14:52 Mode of Arrival: Wheelchair TRAVEL OUTSIDE OF THE [place] IN LAST 30 DAYS: No - HPI Notes: Patient is a 56-year-old female with a history of anemia, HIV, liver cirrhosis, end-stage renal disease and on dialysis, congestive heart failure who presents to the ED complaining of body ache, weakness, dry semi-productive cough, subjective fevers, occasional wheeze 1-2 days. Patient states that her cold symptoms worsened this morning. patient states for the last 2 weeks she has been having dialysis performed due to fluid around her heart. Patient is normally scheduled every Sunday, Sunday, and Sunday. Patient is planning on going to her dialysis tomorrow as well. Patient states that she is otherwise eating and drinking without any difficulties. She is having normal bowel movements. Patient has an allergy to penicillins. Patient did receive her flu vaccine this year. Denies any headache, current fever, neck pain, changes in vision/speech/mentation/hearing, URI, sore throat, chest pain, palpitations, syncope, shortness of breath, dyspnea, abdominal pain, nausea/vomiting/diarrhea , numbness/tingling, muscle paralysis/weakness, or rash. - Related Data Allergies/Adverse Reactions: Penicillins Allergy (Severe, Verified 06/03/17 14:43) Rash adhesive Allergy (Verified 06/03/17 14:43) cinacalcet [From Sensipar] Allergy (Verified 06/03/17 14:43) Past Medical History - General Information source: Patient - Social History Smoking Status: Current Every Day Smoker Frequency of alcohol use: None Drug Abuse: None Family History: CAD Patient has suicidal ideation: No Patient has homicidal ideation: No - Past Medical History Cardiac Medical History: Reports: Hx Heart Attack - 2008 2014, Hx Hypercholesterolemia, Hx Hypertension, Hx Heart Murmur Denies: Hx Coronary Artery Disease Pulmonary Medical History: Reports: Hx Pneumonia Denies: Hx Asthma, Hx Bronchitis, Hx COPD, Hx Tuberculosis Neurological Medical History: Denies: Hx Cerebrovascular Accident, Hx Seizures Renal/ Medical History: Reports: Hx End Stage Renal Disease. Denies: Hx Peritoneal Dialysis GI Medical History: Musculoskeltal Medical History: Denies Hx Arthritis Psychiatric Medical History: Denies: Hx Depression Infectious Medical History: Reports: Hx HIV - 2006 Past Surgical History: Reports: Hx Cardiac Surgery - pacemaker/defib. Denies: Hx Hysterectomy - Immunizations Hx Diphtheria, Pertussis, Tetanus Vaccination: No Hx Pneumococcal Vaccination: 02/18/14 Review of Systems - Review of Systems Notes: REVIEW OF SYSTEMS: CONSTITUTIONAL : see hpi EENT: Denies eye, ear, throat, or mouth pain or symptoms. Denies nasal or sinus congestion or discharge. Denies throat, tongue, or mouth swelling or difficulty swallowing. CARDIOVASCULAR: Denies chest pain. Denies palpitations or racing or irregular heart beat. Denies ankle edema. RESPIRATORY: see hpi GASTROINTESTINAL: Denies abdominal pain or distention. Denies nausea, vomiting , or diarrhea. Denies blood in vomitus, stools, or per rectum. Denies black, tarry stools. Denies constipation. GENITOURINARY: see hpi MUSCULOSKELETAL: Denies back or neck pain or stiffness. Denies joint pain or swelling. SKIN: Denies rash, lesions or sores. NEUROLOGICAL: Denies confusion or altered mental status. Denies passing out or loss of consciousness. Denies dizziness or lightheadedness. Denies headache. Denies weakness or paralysis or loss of use of either side. Denies problems with gait or speech. Denies sensory loss, numbness, or tingling. Denies seizures. ALL OTHER SYSTEMS REVIEWED AND NEGATIVE. Dictation was performed using [employer] voice recognition software Physical Exam - Vital signs Vitals: Temp Pulse Resp BP Pulse Ox 99.5 F 92 24 H 102/45 L 100 06/03/17 14:48 06/03/17 14:48 06/03/17 14:48 06/03/17 14:48 06/03/17 14:48 - Notes Notes: PHYSICAL EXAMINATION: GENERAL: Well-appearing, well-nourished and in no acute distress. A&Ox4. Answers questions appropriately. HEAD: Atraumatic, normocephalic. EYES: Pupils equal round and reactive to light, extraocular movements intact, sclera anicteric, conjunctiva are normal. ENT: EAC clear b/l. TM's intact b/l without erythema, fluid, or perforation. Nares patent and with clear discharge. oropharynx mild erythema without exudates. No tonsilar hypertrophy nor any erythema or exudate. No palatine shift. Uvula midline. No tongue protrusion. No drooling, hoarseness, or airway compromise. Moist mucous membranes. No sinus tenderness. NECK: Normal range of motion, supple without lymphadenopathy. No rigidity/ meningismus. LUNGS: scant crackles b/l lower lung cat. HEART: Regular rate and rhythm without murmurs, rubs, gallops. ABDOMEN: Soft, nontender, nondistended abdomen. No guarding, no rebound. No masses appreciated. Normal bowel sounds present. No CVA tenderness bilaterally. No hepatosplenomegaly. Ext: 0-trace pitting edema b/l. NEUROLOGICAL: Normal speech, normal gait. Normal sensory, motor exams PSYCH: Normal mood, normal affect. SKIN: Warm, Dry, normal turgor, no rashes or lesions noted. Course - Re-evaluation Re-evalutation: 06/03/17 19:57 Patient is an afebrile, well-hydrated, 56-year-old female who presents to the ED with influenza type a as well as right lower lobe pneumonia. Vitals are stable. PE is otherwise unremarkable. Patient has noted vascular congestion, and has been having routine dialysis sessions for that issue. Patient is in no respiratory distress and is perfusing oxygen at 97-100% on room air. CBC and CMP are otherwise unremarkable for any acute pathology. Rapid influenza test was positive. See CXR result. Low suspicion for any ACS, PE, pneumothorax, pericarditis, dissection, respiratory compromise, severe dehydration, sepsis, meningitis, or other systemic emergent condition at this time. Patient is aware that her condition can change from initial presentation and she needs to monitor symptoms closely and seek medical attention for any acute changes. I will send her home with a prescription for doxycycline to take as directed. Recommend conservative measures for symptoms. Recheck with your PCM in 2-3 days. Return to the ED with any worsening/concerning symptoms otherwise as reviewed in discharge. Patient is in agreement. - Vital Signs Vital signs: Temp Pulse Resp BP Pulse Ox 99.5 F 92 24 H 129/47 H 97 06/03/17 14:48 06/03/17 14:48 06/03/17 19:01 06/03/17 19:01 06/03/17 19:01 - Laboratory Result Diagrams: 06/03/17 18:15 06/03/17 18:15 Laboratory results interpreted by me: 06/03/17 06/03/17 18:15 18:15 RBC 2.63 L Hgb 8.3 L Hct 25.3 L RDW 17.5 H Plt Count 84 L Lymphocytes % (Manual) 7 L Monocytes % (Manual) 15 H Abs Lymphs (Manual) 0.4 L Sodium 134.7 L BUN 36 H Creatinine 3.92 H Est GFR ( Amer) 14 L Est GFR (Non-Af Amer) 12 L Calcium 7.5 L AST 55 H Total Protein 5.2 L Albumin 2.5 L Discharge - Discharge Clinical Impression: Influenza A Right lower lobe pneumonia Qualifiers: Pneumonia type: due to unspecified organism Qualified Code(s): J18.1 - Lobar pneumonia, unspecified organism Condition: Stable Disposition: HOME, SELF-CARE Instructions: Influenza ([facility]), Pneumonia ([facility]), Doxycycline ([facility]) Additional Instructions: Maintain adequate fluid intake; within reason due to your renal disease and vascular congestion Take meds as directed tylenol as needed over the counter cold medication as needed for symptoms that are renal safe. Humidified air may help for a cough F/u: with your PCM in 2-3 days for a recheck Keep your scheduled appointments for dialysis Return to the ED with any fever, worsening pain, chest pain, palpitations, syncope, worsening MELO, neck pain/stiffness, shortness of breath, wheezing, drooling, trouble swallowing/breathing, abdominal pain, n/v/d, rash, or worsening/concerning symptoms otherwise. Prescriptions: Doxycycline Hyclate 100 mg PO BID #20 capsule Forms: Elevated Blood Pressure, Smoking Cessation Education Referrals: THIAGO COLIN MD [Primary Care Provider] - 06/05/17
[2017-06-03] MEDS ORDERED: DOXYCYCLINE HYCLATE 100 MG TABLET PO ONE (20:03)
[2017-06-03] MEDS ORDERED: IPRATROPIUM/ALBUTEROL 0.5-2.5 MG/3 ML AMPUL NEB ONE (21:09)
== END 2017-06-03 21:37 | disposition home or self-care (01) ==
LOC: ER 14:37
DX: J09.X2 Influenza due to identified novel influenza A virus with other respiratory manifestations (principal); J18.1 Lobar pneumonia, unspecified organism; M79.1 Myalgia; R06.00 Dyspnea, unspecified; E78.00 Pure hypercholesterolemia, unspecified; Z21 Asymptomatic human immunodeficiency virus [HIV] infection status; I25.2 Old myocardial infarction; Z95.810 Presence of automatic (implantable) cardiac defibrillator; I12.0 Hypertensive chronic kidney disease with stage 5 chronic kidney disease or end stage renal disease; N18.6 End stage renal disease
CPT/HCPCS: 94640; 99284; 36415; 85025; 80053; 87804; 71046; A9270 ×2; J7030; J7620

== ENCOUNTER → 2017-06-12 | Outpatient (CLI) | payer MEDICARE, MEDICAID ==
--- NOTE | 2017-06-12 18:29 | XCELERA REPORT ---
[address] [address] Transthoracic Echocardiogram Report Name: SARAH RACHEL Age: 56 yrs Gender: Female : 1960 Patient Status: Outpatient Patient Location: Study Date: 06/12/2017 01:15 PM Height: 69 in Weight: 165 lb BSA: 1.9 m2 Procedure: A two-dimensional transthoracic echocardiogram with color flow Doppler was performed. The study was technically difficult with many images being suboptimal in quality. Reason For Study: SOB History: Shortness of breath. Ordering Physician: RACHEAL MEDLEY Performed By: Laureen El Interpretation Summary The left ventricle is mildly dilated. There is mild concentric left ventricular hypertrophy. LV EF is 45% Left ventricular systolic function is mild to moderately reduced. Doppler measurements suggest normal left ventricular diastolic function There is no thrombus. There is mild to moderate global hypokinesis of the left ventricle. The right ventricle is mild to moderately dilated. The right ventricular systolic function is mildly reduced. Pacer / AICD wire in RA and RV. There is no evidence of mitral valve prolapse. There is no mitral valve stenosis. There is a mild amount of mitral regurgitation There is no aortic valve stenosis There is no LVOT obstruction. There is a mild amount of aortic regurgitation There is no tricuspid stenosis. There is a severe amount of tricuspid regurgitation There is moderate pulmonary hypertension by echo RVSP is 51 to 56 mm of Hg ,with RA mean of 15 to 20. There is no pulmonic valvular stenosis. There is no pulmonic valvular regurgitation. Small pericardial effusion. There are no echocardiographic or Doppler indications for cardiac tamponade The left atrium is severely dilated. The inferior vena cava appeared dilated and decreased < 50% with respiration (RAP 15-20 mmHg) MMode/2D Measurements & Calculations RVDd: 4.6 cm LVIDd: 5.3 cmFS: 23.4 % Ao root diam: 2.7 cm IVSd: 1.2 cm LVIDs: 4.1 cmEDV(Teich): 137.9 ml LVPWd: 1.2 cmESV(Teich): 73.8 ml Ao root area: 5.6 cm2 EF(Teich): 46.5 % LA dimension: 5.6 cm LVOT diam: 2.0 cm LVOT area: 3.2 cm2 Doppler Measurements & Calculations MV E max lizette: MV P1/2t max lizette: Ao V2 max: AI max lizette: 142.7 cm/sec 142.7 cm/sec 261.7 cm/sec 399.7 cm/sec MV A max lizette: MV P1/2t: 86.1 msec Ao max PG: AI max P.4 cm/sec MVA(P1/2t): 2.6 cm2 27.4 mmHg 63.9 mmHg MV E/A: 1.7 MV dec slope: Ao V2 mean: AI dec slope: 485.6 cm/sec2 195.6 cm/sec 289.2 cm/sec2 Ao mean PG: AI P1/2t: 17.1 mmHg 404.8 msec Ao V2 VTI: 58.6 cm ELVIS(I,D): 1.2 cm2 ELVIS(V,D): 1.1 cm2 LV V1 max PG: SV(LVOT): 67.5 ml PA V2 max: TR max lizette: 3.4 mmHg 136.5 cm/sec 297.4 cm/sec LV V1 mean PG: PA max PG: TR max P.9 mmHg 7.5 mmHg 35.4 mmHg LV V1 max: 92.6 cm/sec LV V1 mean: 62.3 cm/sec LV V1 VTI: 20.8 cm Left Ventricle The left ventricle is mildly dilated. There is mild concentric left ventricular hypertrophy. LV EF is 45%. Left ventricular systolic function is mild to moderately reduced. Doppler measurements suggest normal left ventricular diastolic function. There is mild to moderate global hypokinesis of the left ventricle. There is no thrombus. There is no ventricular septal defect visualized. Right Ventricle The right ventricle is mild to moderately dilated. Pacer / AICD wire in RA and RV. The right ventricular systolic function is mildly reduced. Atria The right atrium is normal. The left atrium is severely dilated. Mitral Valve There is no evidence of mitral valve prolapse. There is no vegetation seen on the mitral valve. There is no mitral valve stenosis. There is a mild amount of mitral regurgitation. Aortic Valve There is no aortic valvular vegetation. There is no aortic valve stenosis. There is no LVOT obstruction. There is a mild amount of aortic regurgitation. Tricuspid Valve There is no tricuspid stenosis. There is a severe amount of tricuspid regurgitation. There is moderate pulmonary hypertension by echo. RVSP is 51 to 56 mm of Hg ,with RA mean of 15 to 20. Pulmonic Valve There is no pulmonic valvular stenosis. There is no pulmonic valvular regurgitation. Great Vessels The aortic root is normal size. The inferior vena cava appeared dilated and decreased < 50% with respiration (RAP 15-20 mmHg). Effusions Small pericardial effusion. There are no echocardiographic or Doppler indications for cardiac tamponade. : RACHEAL MEDLEY > Racheal Medley
== END ==
LOC: SP 13:00
PROVIDERS: ATTEND Specialist
DX: R06.02 Shortness of breath (principal)
CPT/HCPCS: 93306

== ENCOUNTER → 2017-06-21 | Outpatient (CLI) | payer MEDICARE, MEDICAID ==
--- NOTE | 2017-06-21 13:48 | RADIOLOGY REPORT (SQ) ---
EXAM DESCRIPTION: CHEST PA/LAT COMPLETED DATE/TIME: 06/21/2017 1:30 pm REASON FOR STUDY: SOB (R06.02), WHEEZING (R06.2) COMPARISON: Two-view chest 06/03/2017, 12/16/2014 CT angio chest 06/01/2014 EXAM PARAMETERS: NUMBER OF VIEWS: two views TECHNIQUE: Digital Frontal and Lateral radiographic views of the chest acquired. RADIATION DOSE: NA LIMITATIONS: none FINDINGS: LUNGS AND PLEURA: Chronic blunting of the right lateral costophrenic sulcus, with chronic thickening of the right minor fissure. Bandlike scarring at the right lung base. Lungs are otherwise well inflated and grossly clear. No pneumothorax No left pleural effusion or pleural thickening MEDIASTINUM AND HILAR STRUCTURES: No masses or contour abnormalities. HEART AND VASCULAR STRUCTURES: Stable massive cardiomegaly BONES: No acute findings. HARDWARE: Unchanged right-sided pacemaker OTHER: No other significant finding. IMPRESSION: Chronic right-sided pleural thickening and bandlike scarring at the right lung base. Stable cardiomegaly with pacemaker No definite acute findings TECHNICAL DOCUMENTATION: JOB ID: [id number] All Rights Reserved
== END ==
LOC: RAD 13:04
PROVIDERS: ATTEND Physician Assistant Surgical
DX: R06.2 Wheezing (principal); R06.02 Shortness of breath; I51.7 Cardiomegaly; Z95.0 Presence of cardiac pacemaker
CPT/HCPCS: 71046

== ENCOUNTER 2017-06-25 11:18 | Emergency (ER) | payer MEDICAID, MEDICARE ==
--- NOTE | 2017-06-25 12:17 | ER Document Report ---
ED Cardiac - General Chief Complaint: Chest Pain Stated Complaint: CHEST PAIN Time Seen by Provider: 06/25/17 12:17 TRAVEL OUTSIDE OF THE [place] IN LAST 30 DAYS: No - HPI Patient complains to provider of: Chest pain - Patient was at her dialysis appointment this morning having dialysis was complaining of some mild chest pain. Patient took a nitroglycerin and it resolved as she always does. Dialysis recommended evaluation in the emergency department. Patient states she has chronic stable angina and this feels just like her normal angina. She is pain-free at this time. She denies all other symptoms. Notes: She has also been suffering from chronic anemia. It started about 6 weeks ago. She continues to be Hemoccult positive. Multiple workups. Patient gets weekly transfusions on the fifth floor this hospital. Patient denies any shortness of breath, weakness or fatigue. - Related Data Allergies/Adverse Reactions: Penicillins Allergy (Severe, Verified 06/03/17 14:43) Rash adhesive Allergy (Verified 06/03/17 14:43) cinacalcet [From Sensipar] Allergy (Verified 06/03/17 14:43) Past Medical History - Social History Smoking Status: Current Every Day Smoker Frequency of alcohol use: None Drug Abuse: None Family History: CAD Patient has suicidal ideation: No Patient has homicidal ideation: No - Past Medical History Cardiac Medical History: Reports: Hx Heart Attack - 2008 2014, Hx Hypercholesterolemia, Hx Hypertension, Hx Heart Murmur Denies: Hx Coronary Artery Disease Pulmonary Medical History: Reports: Hx Pneumonia Denies: Hx Asthma, Hx Bronchitis, Hx COPD, Hx Tuberculosis Neurological Medical History: Denies: Hx Cerebrovascular Accident, Hx Seizures Renal/ Medical History: Reports: Hx End Stage Renal Disease. Denies: Hx Peritoneal Dialysis GI Medical History: Musculoskeltal Medical History: Denies Hx Arthritis Psychiatric Medical History: Denies: Hx Depression Infectious Medical History: Reports: Hx HIV - 2005 Past Surgical History: Reports: Hx Cardiac Surgery - pacemaker/defib. Denies: Hx Hysterectomy - Immunizations Hx Diphtheria, Pertussis, Tetanus Vaccination: No Hx Pneumococcal Vaccination: 02/18/14 Review of Systems - Review of Systems Constitutional: No symptoms reported EENT: No symptoms reported Cardiovascular: Chest pain Respiratory: No symptoms reported Gastrointestinal: No symptoms reported Genitourinary: No symptoms reported Female Genitourinary: No symptoms reported Musculoskeletal: No symptoms reported Skin: No symptoms reported Hematologic/Lymphatic: No symptoms reported Neurological/Psychological: No symptoms reported Physical Exam - Vital signs Vitals: Resp Pulse Ox 15 94 06/25/17 11:28 06/25/17 11:28 Interpretation: Normal - General General appearance: Appears well, Alert - HEENT Head: Normocephalic, Atraumatic Eyes: Normal Pupils: PERRL - Respiratory Respiratory status: No respiratory distress Chest status: Nontender Breath sounds: Normal Chest palpation: Normal - Cardiovascular Rhythm: Regular Heart sounds: Normal auscultation Murmur: No - Abdominal Inspection: Normal Distension: No distension Bowel sounds: Normal Tenderness: Nontender Organomegaly: No organomegaly - Back Back: Normal, Nontender - Extremities General upper extremity: Normal inspection, Nontender, Normal color, Normal ROM , Normal temperature General lower extremity: Normal inspection, Nontender, Normal color, Normal ROM , Normal temperature, Normal weight bearing. No: Richard's sign - Neurological Neuro grossly intact: Yes Cognition: Normal Orientation: AAOx4 Jesenia Coma Scale Eye Opening: Spontaneous Shokan Coma Scale Verbal: Oriented Jesenia Coma Scale Motor: Obeys Commands Jesenia Coma Scale Total: 15 Speech: Normal Motor strength normal: LUE, RUE, LLE, RLE Sensory: Normal - Psychological Associated symptoms: Normal affect, Normal mood - Skin Skin Temperature: Warm Skin Moisture: Dry Skin Color: Normal Course - Re-evaluation Re-evalutation: 06/25/17 14:04 Elderly patient presents with her stable angina. Patient suffers from chronic anemia is very anemic in the department. Patient is pain-free at this time. Patient's chest x-ray is unremarkable, EKG also has no ischemic changes. Patient's extensive lab workup near her baseline. Hemoglobin 6. In conversation with patient she has had lows in the 5-7 around 6.2. Contact infusion center. Patient will be discharged home and will go directly to the transfusion center for 2 units transfusion. I personally written a note and orders for this. Spoke with nursing supervisor harvesting 06/25/17 14:04 Calcium 4.4, troponin negative. - Vital Signs Vital signs: Temp Pulse Resp BP Pulse Ox 97.8 F 19 132/76 H 96 06/25/17 11:29 06/25/17 11:29 06/25/17 11:29 06/25/17 12:02 - Laboratory Result Diagrams: 06/25/17 11:50 06/25/17 11:50 Laboratory results interpreted by me: 06/25/17 06/25/17 06/25/17 11:50 11:50 11:50 RBC 1.90 L Hgb 6.0 L Hct 18.5 L MCV 98 H RDW 19.8 H Plt Count 76 L Carbon Dioxide 31 H BUN 36 H Creatinine 3.54 H Est GFR ( Amer) 16 L Est GFR (Non-Af Amer) 13 L Glucose 171 H CK-MB (CK-2) 8.91 H Total Protein 5.7 L Albumin 2.6 L - EKG Interpretation by Me EKG shows normal: Sinus rhythm Rate: Tachycardia Additional EKG results interpreted by me: 06/25/17 12:[address] elevations or depressions, normal QRS.no spiked T waves Discharge - Discharge Clinical Impression: Angina pectoris Anemia, chronic renal failure Qualifiers: Chronic kidney disease stage: unspecified stage Qualified Code(s): N18.9 - Chronic kidney disease, unspecified Condition: Stable Disposition: HOME, SELF-CARE Instructions: Angina Episode ([facility]) Referrals: THIAGO COLIN MD [Primary Care Provider] - Follow up as needed
[2017-06-25 12:23] LABS: HEMATOCRIT 18.5 % (36.0-47.0); MEAN CORPUSCULAR HEMOGLOBIN 31.8 pg (27.0-33.4); MEAN CORPUSCULAR HGB CONC 32.6 g/dL (32.0-36.0); MEAN CORPUSCULAR VOLUME 98 fl (80-97); RED CELL DISTRIBUTION WIDTH 19.8 % (11.5-14.0); WHITE BLOOD COUNT 5.2 10^3/uL (4.0-10.5)
[2017-06-25 12:38] LABS: ALANINE AMINOTRANSFERASE 25 U/L (9-52); ALBUMIN 2.6 g/dL (3.5-5.0); ALKALINE PHOSPHATASE 100 U/L (38-126); ANION GAP 7 (5-19); ASPARTATE AMINO TRANSFERASE 31 U/L (14-36); BILIRUBIN,DIRECT 0.3 mg/dL (0.0-0.4); BILIRUBIN,TOTAL 0.3 mg/dL (0.2-1.3); BLOOD UREA NITROGEN 36 mg/dL (7-20); CALCIUM 8.4 mg/dL (8.4-10.2); CARBON DIOXIDE 31 mmol/L (22-30); CHLORIDE 101 mmol/L (98-107); CREATINE KINASE 120 U/L (30-135); GLUCOSE 171 mg/dL (75-110); POTASSIUM 4.4 mmol/L (3.6-5.0); SODIUM 138.5 mmol/L (137-145); TOTAL PROTEIN 5.7 g/dL (6.3-8.2)
--- NOTE | 2017-06-25 12:38 | RADIOLOGY REPORT (SQ) ---
EXAM DESCRIPTION: CHEST SINGLE VIEW COMPLETED DATE/TIME: 06/25/2017 12:25 pm REASON FOR STUDY: chest pain COMPARISON: Two-view chest 06/21/2017, 06/03/2017, 10/01/2015 EXAM PARAMETERS: NUMBER OF VIEWS: One view. TECHNIQUE: Single frontal radiographic view of the chest acquired. RADIATION DOSE: NA LIMITATIONS: None. FINDINGS: LUNGS AND PLEURA: Stable bandlike thickening along the right minor fissure. Stable blunti ng of the right lateral costophrenic sulcus. Improved patchy airspace disease in the right lower lobe compared to 06/03/2017 and 06/21/2017. Left lung well inflated and clear. No left pleural fluid/ pleural thickening. No right or left pneumothorax MEDIASTINUM AND HILAR STRUCTURES: No masses. Contour normal. HEART AND VASCULAR STRUCTURES: Massive cardiomegaly, stable BONES: No acute findings. HARDWARE: Right-sided multi lead pacemaker unchanged OTHER: No other significant finding. IMPRESSION: Stable trace right pleural fluid/ pleural thickening compared to 06/03/2017, 06/21/2017 Minimal residual airspace disease right lower lobe, improved compared to 06/03/2017 and 06/21/2017. Stable cardiomegaly TECHNICAL DOCUMENTATION: JOB ID: [id number] [employer]- All Rights Reserved
--- NOTE | 2017-06-25 12:42 | EKG REPORT ---
SEVERITY:- ABNORMAL ECG - SINUS TACHYCARDIA WITH run of PAT ABNORMAL T, CONSIDER ISCHEMIA, LATERAL LEADS PROLONGED QT INTERVAL : Confirmed by: Nadine Grubbs 25-Jun-2017 12:41:16
[2017-06-25 12:45] LABS: PLATELET COUNT 76 10^3/uL (150-450)
[2017-06-25 12:47] LABS: ABSOLUTE LYMPHOCYTES# (MANUAL) 0.7 10^3/uL (0.5-4.7); ABSOLUTE MONOCYTES # (MANUAL) 0.5 10^3/uL (0.1-1.4); BASOPHILS % (MANUAL) 0 % (0-2); EOSINOPHILS % (MANUAL) 0 % (0-6); LYMPHOCYTES % (MANUAL) 13 % (13-45); MONOCYTES % (MANUAL) 10 % (3-13); SEGMENTED NEUTROPHILS % (MAN) 77 % (42-78); TOTAL CELLS COUNTED 100
[2017-06-25 12:48] LABS: ANISOCYTOSIS 2+; HYPOCHROMASIA SLIGHT; PLATELET COMMENT DECREASED; POLYCHROMASIA 1+; ROULEAUX SLIGHT; TOXIC GRANULATION 2+; TOXIC VACUOLATION PRESENT
[2017-06-25 12:49] LABS: CREATINE KINASE MB 8.91 ng/mL (<4.55); OVALOCYTES 2+; POIKILOCYTOSIS 2+
[2017-06-25 12:52] LABS: TROPONIN I 0.06 ng/mL
[2017-06-25] MEDS ORDERED: NORMAL SALINE 250 ML IV PRN (14:27)
[2017-06-26 06:48] VITALS: BP 121/71
== END 2017-06-26 02:05 | disposition home or self-care (01) ==
LOC: ER 11:18
DX: I20.9 Angina pectoris, unspecified (principal); I12.0 Hypertensive chronic kidney disease with stage 5 chronic kidney disease or end stage renal disease; N18.6 End stage renal disease; D63.1 Anemia in chronic kidney disease; E78.00 Pure hypercholesterolemia, unspecified; B20 Human immunodeficiency virus [HIV] disease; I25.2 Old myocardial infarction; Z95.810 Presence of automatic (implantable) cardiac defibrillator; Z88.0 Allergy status to penicillin; Z99.2 Dependence on renal dialysis
CPT/HCPCS: 93005; 99285; 86900; 86901; 36415; 82553; 36430; 86850; 82962; 82550; 85025; 82272; 80053; 84484; 86920; 71045; 93010; P9016

== ENCOUNTER 2017-07-04 06:46 | Emergency (ER) | payer MEDICAID, MEDICARE ==
--- NOTE | 2017-07-04 07:27 | ER Document Report ---
ED General - General Stated Complaint: DIZZY Time Seen by Provider: 07/04/17 06:50 TRAVEL OUTSIDE OF THE [place] IN LAST 30 DAYS: No - HPI Notes: Patient is a 56-year-old female with a history of angina, chronic kidney disease , on dialysis, chronic anemia with weekly transfusions who presents to the ED complaining of feeling weak and dizzy when she was at her dialysis session today. Patient states that she did not finish her dialysis session today. She is dialyzed every Sunday, Sunday, and Sunday. Patient states that she is still eating and drinking without any difficulties. Patient states that she does continue to see occasional blood in her stool, and has already been scheduled for scopes to be performed on Sunday. Patient states that she does have an occasional wheeze, and is a chronic smoker. Denies any headache, fever , neck pain, URI, sore throat, chest pain, palpitations, syncope, cough, shortness of breath, dyspnea, abdominal pain, nausea/vomiting/diarrhea, or rash. - Related Data Allergies/Adverse Reactions: Penicillins Allergy (Severe, Verified 06/03/17 14:43) Rash adhesive Allergy (Verified 06/03/17 14:43) cinacalcet [From Sensipar] Allergy (Verified 06/03/17 14:43) Past Medical History - Social History Smoking Status: Current Every Day Smoker Family History: CAD - Past Medical History Cardiac Medical History: Reports: Hx Heart Attack - 2008 2014, Hx Hypercholesterolemia, Hx Hypertension, Hx Heart Murmur Denies: Hx Coronary Artery Disease Pulmonary Medical History: Reports: Hx Pneumonia Denies: Hx Asthma, Hx Bronchitis, Hx COPD, Hx Tuberculosis Neurological Medical History: Denies: Hx Cerebrovascular Accident, Hx Seizures Renal/ Medical History: Reports: Hx End Stage Renal Disease. Denies: Hx Peritoneal Dialysis GI Medical History: Musculoskeltal Medical History: Denies Hx Arthritis Psychiatric Medical History: Denies: Hx Depression Infectious Medical History: Reports: Hx HIV - 2005 Past Surgical History: Reports: Hx Cardiac Surgery - pacemaker/defib. Denies: Hx Hysterectomy - Immunizations Hx Diphtheria, Pertussis, Tetanus Vaccination: No Hx Pneumococcal Vaccination: 02/18/14 Review of Systems - Review of Systems -: Yes All other systems reviewed and negative Physical Exam - Vital signs Vitals: Temp Pulse Resp BP Pulse Ox 97.9 F 80 24 H 111/62 99 07/04/17 07:09 07/04/17 07:09 07/04/17 07:09 07/04/17 07:09 07/04/17 07:09 - Notes Notes: PHYSICAL EXAMINATION: GENERAL: Well-appearing, well-nourished and in no acute distress. A&Ox4. Answers questions appropriately. HEAD: Atraumatic, normocephalic. EYES: Pupils equal round and reactive to light, extraocular movements intact, sclera anicteric, conjunctiva are normal. ENT: Nares patent and without discharge. oropharynx clear without exudates. No tonsilar hypertrophy or erythema. Moist mucous membranes. NECK: Normal range of motion, supple without lymphadenopathy LUNGS: wheezes b/l, no retractions or distress HEART: Regular rate and rhythm without murmurs, rubs, gallops. ABDOMEN: Soft, nontender, nondistended abdomen. No guarding, no rebound. No masses appreciated. Normal bowel sounds present. No CVA tenderness bilaterally. Musculoskeletal: FROM to passive/active. Strength 5+/5. Extremities: No cyanosis, clubbing, or edema b/l. Peripheral pulses 2+. Capillary refill less than 3 seconds. NEUROLOGICAL: MMSE intact. Cranial nerves grossly intact. Normal speech. Normal sensory, motor exams. Pronator drift negative. YOSELYN's intact. PSYCH: Normal mood, normal affect. SKIN: Warm, Dry, normal turgor, no rashes or lesions noted. Course - Re-evaluation Re-evalutation: 07/04/17 09:35 Hgb 5.2, Hct 16.6, platelets 89k K+ 6.3 Pt continues to feel weak. Stool appearance was dark red with black stool as well. Vitals stable. Transfer initiated to [facility]. Treatment initiated for hyperkalemia and blood ordered. I am also trying Dr. Marx who was to perform her scopes next sunday. 07/04/17 10:[address] Marx's office. I did speak with the hospitalist Dr. Rcik from [facility] who accepted patient for transfer. She requested I add Iron studies as well. Pt in agreement with plan 07/04/17 10:16 Dr. Johnston called and I reviewed case with him as well. He would recommend 3 units of blood and if she will still be here throughout the day, he can provide dialysis in the ED starting at 1200. 07/04/17 12:49 Pt has no new concerns or complaints. Vitals are stable. Pt stable for transfer. Pt was not transfused any blood even though an order was placed at 0851 this morning for blood to be given. Transport is here and we won't be receiving blood for another 40mins, then per [facility] protocol, they will not transport anyone on blood unless they have been on it for 30 minutes. I will call [facility] to see what they would like us to do, send or wait. Pt is currently stable. Dr. Birch was also consulted who is in agreement with plan. 07/04/17 12:[address] Rick, accepting at [facility], who verbalized understanding that the patient did not recieve any blood while here in the ED. Vitals remain stable. Dr. Rick states to "just send her" and they will take care of the blood there. Pt is in agreement. - Vital Signs Vital signs: Temp Pulse Resp BP Pulse Ox 97.4 F 78 20 120/70 99 07/04/17 12:51 07/04/17 12:51 07/04/17 12:51 07/04/17 12:51 07/04/17 12:51 - Laboratory Result Diagrams: 07/04/17 08:15 07/04/17 08:15 Laboratory results interpreted by me: 07/04/17 07/04/17 07/04/17 08:15 08:15 08:15 RBC 1.68 L Hgb 5.2 L Hct 16.6 L MCV 99 H MCHC 31.5 L RDW 19.2 H Plt Count 89 L Retic Count (auto) APTT 38.2 H Potassium 6.3 H* Carbon Dioxide 32 H BUN 71 H Creatinine 5.87 H Est GFR ( Amer) 9 L Est GFR (Non-Af Amer) 7 L Calcium 8.0 L TIBC Total Protein 4.4 L Albumin 2.2 L Crossmatch 07/04/17 07/04/17 07/04/17 08:15 08:15 12:12 RBC Hgb Hct MCV MCHC RDW Plt Count Retic Count (auto) 4.60 H APTT Potassium Carbon Dioxide BUN Creatinine Est GFR ( Amer) Est GFR (Non-Af Amer) Calcium TIBC 229 L Total Protein Albumin Crossmatch See Detail Discharge - Discharge Clinical Impression: Hyperkalemia, Generalized weakness GI bleed Qualifiers: GI bleed type/associated pathology: unspecified gastrointestinal hemorrhage type Qualified Code(s): K92.2 - Gastrointestinal hemorrhage, unspecified Condition: Stable Disposition: [facility] Referrals: THIAGO COLIN MD [Primary Care Provider] - Follow up as needed
[2017-07-04] MEDS ORDERED: IPRATROPIUM/ALBUTEROL 0.5-2.5 MG/3 ML AMPUL NEB ONE (07:41)
--- NOTE | 2017-07-04 07:49 | RADIOLOGY REPORT (SQ) ---
EXAM DESCRIPTION: CHEST SINGLE VIEW COMPLETED DATE/TIME: 07/04/2017 7:37 am REASON FOR STUDY: wheeze, dizzy COMPARISON: 06/25/2017. EXAM PARAMETERS: NUMBER OF VIEWS: One view. TECHNIQUE: Single frontal radiographic view of the chest acquired. RADIATION DOSE: NA LIMITATIONS: None. FINDINGS: LUNGS AND PLEURA: Right basilar infiltrate persist. MEDIASTINUM AND HILAR STRUCTURES: No masses. Contour normal. HEART AND VASCULAR STRUCTURES: Persistent cardiomegaly. The pulmonary vasculature is unchanged. The re is persistent right pleural thickening or effusion with blunting of the right lateral costophrenic angle. BONES: No acute findings. HARDWARE: Pacer defibrillator leads are in place. OTHER: No other significant finding. IMPRESSION: No significant interval change. TECHNICAL DOCUMENTATION: JOB ID: [id number] [employer]- All Rights Reserved
[2017-07-04 08:37] LABS: ABSOLUTE EOSINOPHILS # (AUTO) 0.1 10^3/uL (0.0-0.6); ABSOLUTE LYMPHOCYTES (AUTO) 0.7 10^3/uL (0.5-4.7); ABSOLUTE MONOCYTES (AUTO) 0.5 10^3/uL (0.1-1.4); ABSOLUTE NEUT (AUTO) 2.8 10^3/uL (1.7-8.2); BASOPHILS % (AUTO) 0.4 % (0-2); HEMATOCRIT 16.6 % (36.0-47.0); LYMPHOCYTES % (AUTO) 16.3 % (13-45); MEAN CORPUSCULAR HEMOGLOBIN 31.1 pg (27.0-33.4); MEAN CORPUSCULAR HGB CONC 31.5 g/dL (32.0-36.0); MEAN CORPUSCULAR VOLUME 99 fl (80-97); MONOCYTES % (AUTO) 12.9 % (3-13); RED BLOOD COUNT 1.68 10^6/uL (3.72-5.28); RED CELL DISTRIBUTION WIDTH 19.2 % (11.5-14.0); SEGMENTED NEUTROPHILS % (AUTO) 67.4 % (42-78); TOTAL CELLS COUNTED % (AUTO) 100 %; WHITE BLOOD COUNT 4.2 10^3/uL (4.0-10.5)
[2017-07-04 08:42] LABS: ALANINE AMINOTRANSFERASE 18 U/L (9-52); ALBUMIN 2.2 g/dL (3.5-5.0); ALKALINE PHOSPHATASE 83 U/L (38-126); ANION GAP 5 (5-19); ASPARTATE AMINO TRANSFERASE 22 U/L (14-36); BILIRUBIN,DIRECT 0.3 mg/dL (0.0-0.4); BILIRUBIN,TOTAL 0.3 mg/dL (0.2-1.3); BLOOD UREA NITROGEN 71 mg/dL (7-20); CARBON DIOXIDE 32 mmol/L (22-30); CHLORIDE 105 mmol/L (98-107); CREATINE KINASE 67 U/L (30-135); GLUCOSE 89 mg/dL (75-110); MAGNESIUM 1.7 mg/dL (1.6-2.3); PHOSPHORUS 2.6 mg/dL (2.5-4.5); SODIUM 141.9 mmol/L (137-145); TOTAL PROTEIN 4.4 g/dL (6.3-8.2)
[2017-07-04 08:45] LABS: HEMOGLOBIN 5.2 g/dL (12.0-15.5)
[2017-07-04 08:47] LABS: POTASSIUM 6.3 mmol/L (3.6-5.0)
[2017-07-04] MEDS ORDERED: NORMAL SALINE 250 ML IV PRN ×2 (08:52→10:14)
[2017-07-04 08:54] LABS: CREATINE KINASE MB 3.97 ng/mL (<4.55)
[2017-07-04 08:56] LABS: TROPONIN I 0.044 ng/mL
[2017-07-04 09:05] LABS: INTERNATIONAL RATION (INR) 1.09; PROTHROMBIN TIME 14.9 SEC (11.4-15.4)
[2017-07-04 09:06] LABS: PARTIAL THROMBOPLASTIN TIME 38.2 SEC (23.5-35.8)
[2017-07-04] MEDS ORDERED: ALBUTEROL SULFATE 0.083% NEB 2.5 MG/3 ML AMPUL NEB ONE (09:10)
[2017-07-04] MEDS ORDERED: CALCIUM GLUCONATE 1000 MG/10 ML INJ IV ONE (09:15)
[2017-07-04] MEDS ORDERED: INSULIN REG, HUMAN 100 UNIT/ML 3 ML VIAL (PYX) IV ONE (09:15)
[2017-07-04] MEDS ORDERED: SODIUM POLYSTYRENE SULFONATE 15 GM/60 ML PO ONE (09:15)
[2017-07-04] MEDS ORDERED: DEXTROSE 50%-WATER 25 GM/50 ML DISP.SYRIN IV ONE (09:15)
--- NOTE | 2017-07-04 09:29 | EKG REPORT ---
SEVERITY:- ABNORMAL ECG - SINUS RHYTHM BORDERLINE R WAVE PROGRESSION, ANTERIOR LEADS ABNORMAL T, CONSIDER ISCHEMIA, LATERAL LEADS : Confirmed by: Nadine Grubbs 04-Jul-2017 09:29:12
[2017-07-04 09:36] LABS: PLATELET COUNT 89 10^3/uL (150-450)
[2017-07-04 10:34] LABS: IRON(TIBC) 71.4 ug/dL (37-170)
[2017-07-04 11:15] LABS: ABSOLUTE RETICS # 0.077 10^6/uL (0.028-0.122)
[2017-07-04 12:52] VITALS: BP 120/70
== END 2017-07-04 13:00 | disposition short-term general hospital (02) ==
LOC: ER 06:46
DX: E87.5 Hyperkalemia (principal); R53.1 Weakness; K92.2 Gastrointestinal hemorrhage, unspecified; R42 Dizziness and giddiness; F17.200 Nicotine dependence, unspecified, uncomplicated; E78.00 Pure hypercholesterolemia, unspecified; I12.0 Hypertensive chronic kidney disease with stage 5 chronic kidney disease or end stage renal disease; N18.6 End stage renal disease; Z21 Asymptomatic human immunodeficiency virus [HIV] infection status; I25.2 Old myocardial infarction; Z88.0 Allergy status to penicillin; Z95.0 Presence of cardiac pacemaker
CPT/HCPCS: 93005; 94640 ×2; 99285; 96375; 96365; 86900; 86901; 36415; 82553; 86850; 82607; 82550; 82728; 82746; 83540; 83550; 83735; 84100; 85025; 85610; 85730; 82272; 85045; 80053; 84484; 84466; 86920; 71045; 93010; J0610; J3490; A9270 ×3; J1815; J7620

== ENCOUNTER 2017-07-10 15:23 | Day surgery (SDC) | payer MEDICARE ==
[2017-07-10] MEDS ORDERED: NALOXONE HCL INJ/PF 0.4 MG/1 ML SDV ONE (16:04)
[2017-07-10] MEDS ORDERED: MIDAZOLAM 2 MG/2 ML INJ ONE ×2 (16:05)
[2017-07-10] MEDS ORDERED: FLUMAZENIL INJ 0.5 MG/5 ML VIAL ONE (16:06)
[2017-07-10] MEDS ORDERED: GLUCAGON,HUMAN RECOMB 1 MG INJ ONE (16:06)
[2017-07-10] MEDS ORDERED: EPINEPHRINE INJ 1 MG/10 ML DISP.SYRIN ONE (16:06)
[2017-07-10] MEDS: FENTANYL CITRATE INJ/PF 100 MCG/2 ML AMPUL ONE ×2 (18:09→18:15)
--- NOTE | 2017-07-10 18:30 | Operative Report ---
Operative Report DATE OF SURGERY: 07/10/17 Operative Report: Pre-op diagnosis: Anemia Post-op diagnosis: 1. Ascending colon polyp 2. Internal hemorrhoids Surgery: Colonoscopy with polypectomy Medications: Versed 2mg, Fentanyl 100mcg IV push Tissue removed: Colon polyp Procedure: After informed consent obtained from patient, conscious sedation was achieved. A digital rectal examination was performed and this was unremarkable. The colonoscope was inserted into the rectum and advanced to the cecum. The appendiceal orifice and the terminal ileum were both identified. The mucosa was examined into details as the colonoscope was slowly pulled out of the patient. The endoscope was retroflexed in the rectum. Patient tolerated the procedure well. Findings Cecum: Normal Ascending colon: 4 mm polyp removed with the cold snare Transverse colon: Normal Descending colon: Normal Sigmoid colon: Normal Rectum: Normal except for internal hemorrhoids Plan: Await pathology. Patient had an EGD at [facility] OPERATION: .
[2017-07-10 19:28] VITALS: BP 130/82
== END 2017-07-10 19:30 | disposition home or self-care (01) ==
LOC: END 15:23
PROVIDERS: ATTEND Internal Medicine Gastroenterology
PROC: 0DBK8ZX Excision of Ascending Colon, Via Natural or Artificial Opening Endoscopic, Diagnostic (ICD-10-PCS; principal; 2017-07-10 16:30)
DX: D64.9 Anemia, unspecified (principal); D12.2 Benign neoplasm of ascending colon; K64.8 Other hemorrhoids; I12.0 Hypertensive chronic kidney disease with stage 5 chronic kidney disease or end stage renal disease; N18.6 End stage renal disease; E78.00 Pure hypercholesterolemia, unspecified; J44.9 Chronic obstructive pulmonary disease, unspecified; I42.9 Cardiomyopathy, unspecified; B18.1 Chronic viral hepatitis B without delta-agent; I35.1 Nonrheumatic aortic (valve) insufficiency; B20 Human immunodeficiency virus [HIV] disease; R16.2 Hepatomegaly with splenomegaly, not elsewhere classified; I07.1 Rheumatic tricuspid insufficiency; F17.210 Nicotine dependence, cigarettes, uncomplicated; Z79.899 Other long term (current) drug therapy; Z79.82 Long term (current) use of aspirin; Z79.51 Long term (current) use of inhaled steroids; I25.2 Old myocardial infarction; Z99.2 Dependence on renal dialysis; Z95.810 Presence of automatic (implantable) cardiac defibrillator; Z88.0 Allergy status to penicillin
CPT/HCPCS: 45385; 88305 ×2; J2250; J3010; J0171; J1610; J2310; J3490

== ENCOUNTER → 2017-12-27 | Outpatient (CLI) | payer MEDICAID, MEDICARE ==
--- NOTE | 2017-12-28 11:43 | WOMENS IMAGING REPORT ---
EXAM DESCRIPTION: BILAT SCREENING MAMMO W/CAD COMPLETED DATE/TIME: 12/27/2017 11:05 am REASON FOR STUDY: BILATERAL SCREENING MAMMO/Z12.31 Z12.31 ENCNTR SCREEN MAMMOGRAM FOR MALIGNANT CASTRO PLASM OF LOTUS COMPARISON: 11/23/2016 and 11/23/2015. TECHNIQUE: Standard craniocaudal and mediolateral oblique views of each breast recorded using digita l acquisition. LIMITATIONS: None. FINDINGS: Findings present which are benign by mammographic criteria. No suspicious masses, calcifi cations or architectural distortion. Pertinent benign findings: Stable calcifications in both breasts. Stable diffuse skin thickening in both breasts, possibly due to soft tissue edema. Read with the assistance of CAD. .[facility] - R2 Cenova Version 1.3 .[facility] - R2 Cenova Version 1.3 .[facility] - R2 Cenova Version 2.4 .[facility] [place] - R2 Cenova Version 2.4 .[facility] - R2 [employer] Version 9.2 Benign mammographic findings may include one or more of the following: Smooth masses, popcorn/rim/co arse calcifications, asymmetries, post-procedure changes, and lesions with long-standing stability. IMPRESSION: BENIGN MAMMOGRAPHIC FINDINGS. BIRADS 2 BREAST DENSITY: d. The breasts are extremely dense, which lowers the sensitivity of mammography. BIRAD: 2 BENIGN FINDING(S) RECOMMENDATION: ROUTINE SCREENING COMMENT: The patient has been notified of the results by letter per SA requirements. Additional no tification policies are in place for contacting patient with suspicious or incomplete findings. Quality ID #[id number]: The [employer] recommends an annual screening mammogram for women aged 40 years or over. This facility utilizes a reminder system to ensure that all patients receive reminder letters, and/or direct phone calls for appointments. This includes reminders for routine scr eening mammograms, diagnostic mammograms, or other Breast Imaging Interventions when appropriate. Th is patient will be placed in the appropriate reminder system. The [employer] (ACR) has developed recommendations for screening MRI of the breast s in certain patient populations, to be used in conjunction with mammography. Breast MRI surveillanc e may be appropriate for women with more than 20% lifetime risk of developing breast cancer as deter mined by genetic testing, significant family history of the disease, or history of mantle radiation f or Hodgkins Disease. ACR Practice Guidelines 2008. TECHNICAL DOCUMENTATION: FINDING NUMBER: (1) ASSESSMENT: (1) JOB ID: [id number] [employer]- All Rights Reserved Reading location - IP/workstation name: [email or web address]
== END ==
LOC: WI 10:37
PROVIDERS: ATTEND Internal Medicine
DX: Z12.31 Encounter for screening mammogram for malignant neoplasm of breast (principal)
CPT/HCPCS: 77067

== ENCOUNTER 2018-01-11 15:12 | Inpatient (IN) | payer MEDICARE ==
[2018-01-11] MEDS ORDERED: IPRATROPIUM/ALBUTEROL 0.5-2.5 MG/3 ML AMPUL NEB ONE ×4 (15:51→21:05)
[2018-01-11] MEDS ORDERED: NORMAL SALINE 1000 ML 1,000 ML IV ONE (15:51)
--- NOTE | 2018-01-11 15:59 | ER Document Report ---
ED Medical Screen (RME) - General Chief Complaint: Nausea/Vomiting/Diarrhea Stated Complaint: COUGH, DIARRHEA, CHILLS Time Seen by Provider: 01/11/18 15:44 TRAVEL OUTSIDE OF THE [place] IN LAST 30 DAYS: No - HPI Patient complains to provider of: Weakness and shortness of breath - Related Data Allergies/Adverse Reactions: Penicillins Allergy (Severe, Verified 06/03/17 14:43) Rash adhesive Allergy (Verified 07/10/17 16:22) Rash cinacalcet [From Sensipar] Allergy (Verified 07/10/17 16:22) cough Past Medical History - Past Medical History Cardiac Medical History: Reports: Hx Heart Attack - 2008, 2014, Hx Hypercholesterolemia, Hx Hypertension, Hx Heart Murmur Denies: Hx Coronary Artery Disease Pulmonary Medical History: Reports: Hx Asthma, Hx COPD, Hx Pneumonia Denies: Hx Bronchitis, Hx Tuberculosis Neurological Medical History: Denies: Hx Cerebrovascular Accident, Hx Seizures Renal/ Medical History: Reports: Hx End Stage Renal Disease. Denies: Hx Peritoneal Dialysis GI Medical History: Musculoskeltal Medical History: Denies Hx Arthritis Psychiatric Medical History: Denies: Hx Depression Infectious Medical History: Reports: Hx HIV - 2006 Past Surgical History: Reports: Hx Cardiac Surgery - pacemaker/defib. Denies: Hx Hysterectomy - Immunizations Hx Diphtheria, Pertussis, Tetanus Vaccination: Yes History of Influenza Vaccine for 02/2017 - 07/2017 Season: Yes Influenza Administration Date for 02/2017 - 07/2017 Season: 02/18/17 Physical Exam - Vital signs Vitals: Temp Pulse Resp BP Pulse Ox 98.8 F 94 28 H 154/67 H 85 L 01/11/18 15:31 01/11/18 15:31 01/11/18 15:31 01/11/18 15:31 01/11/18 15:31 Course - Re-evaluation Re-evalutation: 01/11/18 15:59 This 57-year-old female with multiple medical comorbidities including COPD and hypertension presents for evaluation of generalized fatigue after finishing a course of steroids in the outpatient setting for COPD exacerbation, she also has a productive cough generalized sick feeling and dyspnea. She does not normally wear oxygen on presentation she is 85% on room air, placed on 2 L nasal cannula with improvement to the low 90s. We will initiate broad workup presumptively for pneumonia as patient has had pneumonia in the past, will defer antibiotics at this time until chest x-rays obtained and blood cultures were drawn. - Vital Signs Vital signs: Temp Pulse Resp BP Pulse Ox 98.8 F 94 28 H 154/67 H 85 L 01/11/18 15:31 01/11/18 15:31 01/11/18 15:31 01/11/18 15:31 01/11/18 15:31 Doctor's Discharge - Discharge Referrals: THIAGO COLIN MD [Primary Care Provider] - Follow up as needed
--- NOTE | 2018-01-11 16:18 | ER Document Report ---
ED General - General Chief Complaint: Nausea/Vomiting/Diarrhea Stated Complaint: COUGH, DIARRHEA, CHILLS Time Seen by Provider: 01/11/18 15:44 Mode of Arrival: Ambulatory Information source: Patient Notes: This is a 57-year-old female with a history of COPD, hypertension, HIV, end- stage renal disease (hemodialysis Wednesdays, last dialyzed today ) who presents to the emergency room with productive cough of yellow sputum, fever, chills, shortness of breath and wheezing. TRAVEL OUTSIDE OF THE [place] IN LAST 30 DAYS: No - HPI Onset: Last week Onset/Duration: Gradual Quality of pain: No pain Severity: None Pain Level: Denies Associated symptoms: Chills, Fever, Shortness of breath Exacerbated by: Movement Relieved by: Remaining still Similar symptoms previously: Yes Recently seen / treated by doctor: Yes - Related Data Allergies/Adverse Reactions: Penicillins Allergy (Severe, Verified 06/03/17 14:43) Rash adhesive Allergy (Verified 07/10/17 16:22) Rash cinacalcet [From Sensipar] Allergy (Verified 07/10/17 16:22) cough Past Medical History - General Information source: Patient - Social History Smoking Status: Current Every Day Smoker Cigarette use (# per day): Yes - 1 pack per day Chew tobacco use (# tins/day): No Frequency of alcohol use: None Drug Abuse: None Lives with: Family Family History: CAD Patient has suicidal ideation: No Patient has homicidal ideation: No - Past Medical History Cardiac Medical History: Reports: Hx Heart Attack - 2008, 2014, Hx Hypercholesterolemia, Hx Hypertension, Hx Heart Murmur Denies: Hx Coronary Artery Disease Pulmonary Medical History: Reports: Hx Asthma, Hx COPD, Hx Pneumonia Denies: Hx Bronchitis, Hx Tuberculosis Neurological Medical History: Denies: Hx Cerebrovascular Accident, Hx Seizures Renal/ Medical History: Reports: Hx End Stage Renal Disease. Denies: Hx Peritoneal Dialysis GI Medical History: Musculoskeletal Medical History: Denies Hx Arthritis Psychiatric Medical History: Denies: Hx Depression Infectious Medical History: Reports: Hx HIV - 2006 Past Surgical History: Reports: Hx Cardiac Surgery - pacemaker/defib. Denies: Hx Hysterectomy - Immunizations Hx Diphtheria, Pertussis, Tetanus Vaccination: Yes Hx Pneumococcal Vaccination: 02/18/14 Review of Systems - Review of Systems Constitutional: Chills, Fever EENT: No symptoms reported Cardiovascular: Palpitations, Orthopnea. denies: Chest pain Respiratory: Short of breath, Wheezing Gastrointestinal: No symptoms reported Genitourinary: No symptoms reported Female Genitourinary: No symptoms reported Musculoskeletal: No symptoms reported Skin: No symptoms reported Hematologic/Lymphatic: No symptoms reported Neurological/Psychological: No symptoms reported Physical Exam - Vital signs Vitals: Temp Pulse Resp BP Pulse Ox 98.8 F 94 28 H 154/67 H 85 L 01/11/18 15:31 01/11/18 15:31 01/11/18 15:31 01/11/18 15:31 01/11/18 15:31 Notes: Physical exam: GENERAL: 57-year-old female, alert and oriented 3, tachypnea (29), tachycardia (117), O2 sat 95% on 2 L, blood pressure 154/67 HEAD: Atraumatic, normocephalic. EYES: Pupils equal round and reactive to light, extraocular movements intact, sclera anicteric, conjunctiva are normal. ENT: TMs normal, nares patent, oropharynx clear without exudates. Moist mucous membranes. NECK: Normal range of motion, supple without obvious mass or JVD. LUNGS: Bilateral wheezing with accessory muscle use HEART: Regular rate and rhythm without murmurs, rubs or gallops. ABDOMEN: Soft, normoactive bowel sounds. No tenderness to palpation. No guarding, no rebound. No masses appreciated. EXTREMITIES: Normal range of motion, no pitting or edema. No clubbing or cyanosis. NEUROLOGICAL: Cranial nerves II through XII grossly intact. Normal speech, moving all extremities. PSYCH: Normal mood, normal affect. SKIN: Warm, Dry, normal turgor, no rashes or lesions noted. Course - Vital Signs Vital signs: Temp Pulse Resp BP Pulse Ox 99.2 F 94 25 H 132/101 H 93 01/11/18 21:29 01/11/18 15:31 01/11/18 21:01 01/11/18 21:01 01/11/18 21:01 - Laboratory Result Diagrams: 01/11/18 16:14 01/11/18 16:14 Laboratory results interpreted by me: 01/11/18 01/11/18 16:14 16:14 RDW 16.0 H Plt Count 122 L Lymphocytes % 11.5 L Potassium 3.3 L Carbon Dioxide 31 H BUN 22 H Creatinine 3.60 H Est GFR ( Amer) 16 L Est GFR (Non-Af Amer) 13 L Calcium 7.7 L Direct Bilirubin 0.6 H AST 41 H Albumin 3.1 L - Diagnostic Test Radiology reviewed: Image reviewed, Reports reviewed - Chest x-ray shows cardiomegaly without any obvious infiltrate - EKG Interpretation by Me Rate: Tachycardia Rhythm: NSR - EKG sinus tachycardia with a ventricular rate of 114, nonspecific ST changes, no acute ST elevation or depression. Critical Care Note - Critical Care Note Total time excluding time spent on procedures (mins): 60 Discharge - Discharge Clinical Impression: COPD exacerbation Condition: Stable Disposition: ADMITTED OBSERVATION Admitting Provider: Hospitalist - Dr Seaman Unit Admitted: Telemetry
[2018-01-11] MEDS ORDERED: CEFTRIAXONE 1 GM/D5W RTU 1 GM/50 ML RTUPB IV ONE (16:19)
[2018-01-11 16:41] LABS: ABSOLUTE EOSINOPHILS # (AUTO) 0.1 10^3/uL (0.0-0.6); ABSOLUTE LYMPHOCYTES (AUTO) 0.9 10^3/uL (0.5-4.7); ABSOLUTE MONOCYTES (AUTO) 0.8 10^3/uL (0.1-1.4); ABSOLUTE NEUT (AUTO) 6.3 10^3/uL (1.7-8.2); BASOPHILS % (AUTO) 0.4 % (0-2); EOSINOPHILS % (AUTO) 1.1 % (0-6); HEMATOCRIT 37.6 % (36.0-47.0); HEMOGLOBIN 12.5 g/dL (12.0-15.5); LYMPHOCYTES % (AUTO) 11.5 % (13-45); MEAN CORPUSCULAR HGB CONC 33.3 g/dL (32.0-36.0); MEAN CORPUSCULAR VOLUME 93 fl (80-97); MONOCYTES % (AUTO) 9.3 % (3-13); PLATELET COUNT 122 10^3/uL (150-450); RED BLOOD COUNT 4.03 10^6/uL (3.72-5.28); SEGMENTED NEUTROPHILS % (AUTO) 77.7 % (42-78); TOTAL CELLS COUNTED % (AUTO) 100 %; WHITE BLOOD COUNT 8.1 10^3/uL (4.0-10.5)
--- NOTE | 2018-01-11 16:57 | RADIOLOGY REPORT (SQ) ---
EXAM DESCRIPTION: CHEST 2 VIEWS COMPLETED DATE/TIME: 01/11/2018 4:45 pm REASON FOR STUDY: cough and dyspnea COMPARISON: 06/21/2017 NUMBER OF VIEWS: Two views. TECHNIQUE: Frontal and lateral radiographic views of the chest acquired. LIMITATIONS: None. FINDINGS: LUNGS AND PLEURA: Chronic right lower lobe scarring and blunting of the right costophrenic angle. Left lung is clear. MEDIASTINUM AND HILAR STRUCTURES: No masses or contour abnormality. HEART AND VASCULAR STRUCTURES: Cardiac enlargement. Vascular congestion. BONES: No acute findings. HARDWARE: Stable position of defibrillator. OTHER: No other significant finding. IMPRESSION: CARDIAC ENLARGEMENT. VASCULAR CONGESTION. TECHNICAL DOCUMENTATION: JOB ID: [id number] [employer]- All Rights Reserved Reading location - IP/workstation name: [email or web address]
[2018-01-11 17:15] LABS: ALANINE AMINOTRANSFERASE 24 U/L (9-52); ALBUMIN 3.1 g/dL (3.5-5.0); ALKALINE PHOSPHATASE 124 U/L (38-126); ANION GAP 9 (5-19); ASPARTATE AMINO TRANSFERASE 41 U/L (14-36); BILIRUBIN,DIRECT 0.6 mg/dL (0.0-0.4); BILIRUBIN,TOTAL 0.6 mg/dL (0.2-1.3); BLOOD UREA NITROGEN 22 mg/dL (7-20); CALCIUM 7.7 mg/dL (8.4-10.2); CARBON DIOXIDE 31 mmol/L (22-30); CHLORIDE 102 mmol/L (98-107); GLUCOSE 88 mg/dL (75-110); POTASSIUM 3.3 mmol/L (3.6-5.0)
[2018-01-11 17:25] LABS: CREATINE KINASE MB 3.87 ng/mL (<4.55)
[2018-01-11 17:42] LABS: TROPONIN I 0.039 ng/mL
[2018-01-11] MEDS ORDERED: CEFTRIAXONE INJ 1000 MG VIAL ONE (17:44)
[2018-01-11] MEDS ORDERED: CEFTRIAXONE INJ 1000 MG VIAL IV ONE (18:00)
--- NOTE | 2018-01-11 20:33 | EKG REPORT ---
SEVERITY:- ABNORMAL ECG - SINUS TACHYCARDIA LVH WITH SECONDARY REPOLARIZATION ABNORMALITY : Confirmed by: Nadine Grubbs 11-Jan-2018 17:32:12
[2018-01-11] MEDS ORDERED: NITROGLYCERIN 2% OINTMENT 1 GM PACKET TP ONE (21:14)
[2018-01-11] MEDS ORDERED: CLONIDINE HCL 0.1 MG TABLET PO ONE (21:41)
[2018-01-11] MEDS ORDERED: ZOLPIDEM TARTRATE 5 MG TABLET PO ONE (21:42)
[2018-01-11] MEDS ORDERED: CARVEDILOL 12.5 MG TABLET PO ONE (21:43)
[2018-01-11] MEDS ORDERED: RALTEGRAVIR POTASSIUM 400 MG TABLET PO ONE ×2 (21:43→22:00)
[2018-01-11] MEDS ORDERED: AZITHROMYCIN INJ 500 MG VIAL IV ONE (22:05)
[2018-01-12 02:25] LABS: APPEARANCE,URINE SLIGHTLY-CLOUDY; BILIRUBIN,URINE NEGATIVE (NEGATIVE); COLOR,URINE YELLOW; GLUCOSE, URINE NEGATIVE (NEGATIVE); KETONES,URINE NEGATIVE (NEGATIVE); LEUKOCYTE ESTERASE,URINE MODERATE (NEGATIVE); NITRITE,URINE NEGATIVE (NEGATIVE); PROTEIN,URINE 100 mg/dL (NEGATIVE); URINE SPECIFIC GRAVITY 1.009; UROBILINOGEN,URINE NEGATIVE mg/dL (<2.0)
[2018-01-12] MEDS ORDERED: NORMAL SALINE 1000 ML 1,000 ML IV PRN (02:47)
[2018-01-12] MEDS: IPRATROPIUM/ALBUTEROL 0.5-2.5 MG/3 ML AMPUL NEB PRN ×3 (04:04→22:14)
--- NOTE | 2018-01-12 05:48 | PDOC H&P ---
History of Present Illness Admission Date/PCP: 01/11/18 22:46 THIAGO COLIN Patient complains of: cough, wheezing History of Present Illness: SARAH RACHEL is a 57 year old female presenting to the emergency department secondary to cough wheezing and fever. States she has been sick for the past 1 week and was prescribed steroids on Sunday which she has been compliant with. Patient continues to smoke approximately half pack of cigarettes per day with her last cigarette 2 days ago she states. She also states she lives alone and is able to perform her own activities of daily living. States for the past couple of days she has been coughing more than usual with increased sputum production and felt feverish today which point she decided present to the emergency department for further workup and evaluation. Patient denies wearing oxygen at home. Patient is HIV positive and end-stage renal disease on dialysis Sunday. Patient also has a pacemaker. Follows with Dr. Johnston for nephrology. Past Medical History Cardiac Medical History: Reports: Myocardial Infarction - 2008, 2014, Hyperlipidema, Hypertension, Heart Murmur Denies: Coronary Artery Disease Pulmonary Medical History: Reports: Asthma, Chronic Obstructive Pulmonary Disease (COPD), Pneumonia Denies: Bronchitis, Tuberculosis Neurological Medical History: Denies: Seizures Renal/ Medical History: Reports: End Stage Renal Disease GI Medical History: Musculoskeltal Medical History: Denies: Arthritis Psychiatric Medical History: Denies: Depression Hematology: Reports: Anemia Infectious Medical History: Reports: HIV - 2006 Past Surgical History Past Surgical History: Reports: Pacemaker Denies: Hysterectomy Social History Information Source: Patient Lives with: Family Smoking Status: Current Every Day Smoker Frequency of Alcohol Use: None Hx Recreational Drug Use: No Drugs: None Hx Prescription Drug Abuse: No Family History Family History: CAD Parental Family History Reviewed: Yes Children Family History Reviewed: Yes Sibling(s) Family History Reviewed.: Yes Medication/Allergy Home Medications: Etravirine [Intelence] 200 mg PO Q12H 06/01/14 Prasugrel HCl [Effient] 10 mg PO DAILY 06/01/14 Raltegravir Potassium [Isentress 400 mg Tablet] 400 mg PO BID 06/01/14 Tenofovir Disoproxil Fumarate [Viread 300 mg Tablet] 300 mg PO Q7D 06/01/14 Nitroglycerin 0.4 mg SL ASDIR PRN 06/02/14 Carvedilol [Coreg 25 mg Tablet] 1 tab PO Q12 07/25/14 Clonidine HCl [Catapres] 0.1 mg PO TID 08/24/14 Calcium Acetate [Phoslo] 3 tab PO TID 01/22/15 Zolpidem Tartrate [Ambien 5 mg Tablet] 5 mg PO QHS 01/22/15 Albuterol Sulfate [Albuterol Sulfate 5mg/1 mL] 5 mg PO ASDIR PRN 07/10/17 Albuterol Sulfate [Proair Hfa] 8.5 gm IH ASDIR PRN 07/10/17 Entecavir 1 mg PO Q7D 07/10/17 Ergocalciferol (Vitamin D2) [Vitamin D2] 50,000 unit PO ASDIR PRN 07/10/17 Losartan Potassium 25 mg PO DAILY 07/10/17 Melatonin 5 mg PO QHS 07/10/17 Omeprazole 20 mg PO DAILY 07/10/17 Oxycodone HCl/Acetaminophen [Percocet 5-325 mg Tablet] 1 tab PO ASDIR PRN Pravastatin Sodium 40 mg PO DAILY 07/10/17 Allergies/Adverse Reactions: Penicillins Allergy (Severe, Verified 06/03/17 14:43) Rash adhesive Allergy (Verified 07/10/17 16:22) Rash cinacalcet [From Sensipar] Allergy (Verified 07/10/17 16:22) cough Physical Exam Vital Signs: Temp Pulse Resp BP Pulse Ox 98.8 F 94 22 H 129/78 H 95 01/12/18 05:00 01/11/18 15:31 01/12/18 05:01 01/12/18 05:01 01/12/18 05:01 Intake & Output 01/10/18 01/11/18 01/12/18 06:59 06:59 06:59 Intake Total 678 Balance 678 General appearance: PRESENT: no acute distress, well-developed, well-nourished Head exam: PRESENT: atraumatic, normocephalic Eye exam: PRESENT: conjunctiva pink, EOMI, PERRLA. ABSENT: scleral icterus Ear exam: PRESENT: normal external ear exam Mouth exam: PRESENT: moist, tongue midline Neck exam: ABSENT: carotid bruit, JVD, lymphadenopathy, thyromegaly Respiratory exam: PRESENT: decreased breath sounds, wheezes. ABSENT: rales, rhonchi Cardiovascular exam: PRESENT: RRR. ABSENT: diastolic murmur, rubs, systolic murmur Pulses: PRESENT: normal dorsalis pedis pul Vascular exam: PRESENT: normal capillary refill GI/Abdominal exam: PRESENT: normal bowel sounds, soft. ABSENT: distended, guarding, mass, organolmegaly, rebound, tenderness Rectal exam: PRESENT: deferred Extremities exam: PRESENT: full ROM. ABSENT: calf tenderness, clubbing, pedal edema Neurological exam: PRESENT: alert, awake, oriented to person, oriented to place , oriented to time, oriented to situation, CN II-XII grossly intact. ABSENT: motor sensory deficit Psychiatric exam: PRESENT: appropriate affect, normal mood. ABSENT: homicidal ideation, suicidal ideation Skin exam: PRESENT: dry, intact, warm. ABSENT: cyanosis, rash Results Laboratory Results: 01/12/18 00:57 Urine Color YELLOW Urine Appearance SLIGHTLY-CLOUDY Urine pH 7.0 Ur Specific [place] 1.009 Urine Protein 100 H Urine Glucose (UA) NEGATIVE Urine Ketones NEGATIVE Urine Blood SMALL H Urine Nitrite NEGATIVE Ur Leukocyte Esterase MODERATE H Urine WBC (Auto) 44 Urine RBC (Auto) 4 01/11/18 01/11/18 16:14 16:14 WBC 8.1 Potassium 3.3 L Calcium 7.7 L Impressions: Chest X-Ray 01/11/18 15:51 IMPRESSION: CARDIAC ENLARGEMENT. VASCULAR CONGESTION. 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 Patient to be started on azithromycin plus Rocephin secondary to acute bronchitis given immunocompromised state. Patient is known past medical history of HIV, will need to clarify patient's home medications and restart antiretrovirals this a.m. Replace potassium and avoid nephrotoxic medications. Repeat CBC, BMP in a.m. Patient is end-stage renal disease on dialysis Sunday follows with Dr. Johnston. Creatinine 3.6 today. States she did receive dialysis on Sunday. Smoking cessation highly encouraged. Apparently appears to be resting comfortably in no acute distress. Will continue with Tylenol every 6 hours as needed pain, fever. DuoNeb's every 4 hours as needed shortness of breath, wheezing. Will continue to monitor patient closely and adjust accordingly. - Time Time Spent: 30 to 50 Minutes Medications reviewed and adjusted accordingly: Yes Anticipated discharge: Home
[2018-01-12] MEDS: METHYLPREDNISOLONE INJ 40 MG/1 ML SDV IV SCH ×3 (06:29→22:22)
[2018-01-12] MEDS: HEPARIN SOD (PORCINE) 5,000 UNIT/ML 1 ML SYRINGE SUBCUT SCH ×3 (06:31→22:08)
[2018-01-12] MEDS: FAMOTIDINE 20 MG TABLET PO SCH ×2 (09:10→22:22)
[2018-01-12] MEDS ORDERED: CEFTRIAXONE INJ 500 MG VIAL ONE (18:21)
[2018-01-12] MEDS ORDERED: CEFTRIAXONE INJ 250 MG VIAL ONE (18:22)
[2018-01-12] MEDS: CEFTRIAXONE SODIUM 1,500 MG in DEXTROSE 5%-WATER 100 ML IV SCH (18:41)
[2018-01-12 19:14] LABS: HEMATOCRIT 33.6 % (36.0-47.0); MEAN CORPUSCULAR HEMOGLOBIN 30.6 pg (27.0-33.4); MEAN CORPUSCULAR HGB CONC 32.7 g/dL (32.0-36.0); MEAN CORPUSCULAR VOLUME 94 fl (80-97); RED BLOOD COUNT 3.59 10^6/uL (3.72-5.28); RED CELL DISTRIBUTION WIDTH 15.8 % (11.5-14.0); WHITE BLOOD COUNT 7.6 10^3/uL (4.0-10.5)
[2018-01-12 19:32] LABS: PLATELET COUNT 91 10^3/uL (150-450)
[2018-01-12 19:37] LABS: ALANINE AMINOTRANSFERASE 24 U/L (9-52); ALBUMIN 2.6 g/dL (3.5-5.0); ALKALINE PHOSPHATASE 125 U/L (38-126); ANION GAP 12 (5-19); ASPARTATE AMINO TRANSFERASE 33 U/L (14-36); BILIRUBIN,DIRECT 0.4 mg/dL (0.0-0.4); BILIRUBIN,TOTAL 0.4 mg/dL (0.2-1.3); BLOOD UREA NITROGEN 33 mg/dL (7-20); CALCIUM 7.6 mg/dL (8.4-10.2); CARBON DIOXIDE 26 mmol/L (22-30); CHLORIDE 103 mmol/L (98-107); GLUCOSE 178 mg/dL (75-110); PHOSPHORUS 4.4 mg/dL (2.5-4.5); POTASSIUM 3.9 mmol/L (3.6-5.0); SODIUM 141.4 mmol/L (137-145); TOTAL PROTEIN 5.9 g/dL (6.3-8.2)
[2018-01-12 19:56] LABS: ABSOLUTE LYMPHOCYTES# (MANUAL) 0.5 10^3/uL (0.5-4.7); ABSOLUTE MONOCYTES # (MANUAL) 0.2 10^3/uL (0.1-1.4); ABSOLUTE NEUTROPHILS# (MANUAL) 6.9 10^3/uL (1.7-8.2); BASOPHILS % (MANUAL) 0 % (0-2); EOSINOPHILS % (MANUAL) 0 % (0-6); LYMPHOCYTES % (MANUAL) 6 % (13-45); MONOCYTES % (MANUAL) 3 % (3-13); SEGMENTED NEUTROPHILS % (MAN) 91 % (42-78); TOTAL CELLS COUNTED 100
[2018-01-12 19:57] LABS: ANISOCYTOSIS SLIGHT; BURR CELLS SLIGHT; POIKILOCYTOSIS 1+; POLYCHROMASIA 1+; TOXIC GRANULATION 1+; TOXIC VACUOLATION PRESENT
[2018-01-12 19:58] LABS: OVALOCYTES SLIGHT; TEAR DROP CELLS SLIGHT
[2018-01-12 19:59] LABS: PLATELET COMMENT DECREASED
[2018-01-13] MEDS: HEPARIN SOD (PORCINE) 5,000 UNIT/ML 1 ML SYRINGE SUBCUT SCH ×3 (05:34→22:17)
[2018-01-13 05:38] LABS: ANION GAP 11 (5-19); BLOOD UREA NITROGEN 39 mg/dL (7-20); CALCIUM 7.8 mg/dL (8.4-10.2); CARBON DIOXIDE 29 mmol/L (22-30); CHLORIDE 104 mmol/L (98-107); GLUCOSE 151 mg/dL (75-110); SODIUM 143.7 mmol/L (137-145)
[2018-01-13] MEDS: METHYLPREDNISOLONE INJ 40 MG/1 ML SDV IV SCH ×3 (05:39→22:22)
[2018-01-13 05:43] LABS: HEMATOCRIT 33.8 % (36.0-47.0); HEMOGLOBIN 11.2 g/dL (12.0-15.5); MEAN CORPUSCULAR HEMOGLOBIN 31.1 pg (27.0-33.4); MEAN CORPUSCULAR HGB CONC 33.2 g/dL (32.0-36.0); MEAN CORPUSCULAR VOLUME 94 fl (80-97); RED BLOOD COUNT 3.61 10^6/uL (3.72-5.28)
[2018-01-13 05:46] LABS: PLATELET COUNT 96 10^3/uL (150-450)
[2018-01-13] MEDS ORDERED: NITROGLYCERIN 0.4 MG/TAB 25 TAB/BOTTLE SL PRN (09:45)
[2018-01-13] MEDS ORDERED: OXYCODONE-ACETAMINOPHEN 5-325 MG TABLET PO PRN (09:45)
[2018-01-13] MEDS ORDERED: ALBUTEROL SULFATE HFA (90 MCG/PUFF) 8 GM MDI (1 MDI/ER DISP) IH PRN (09:45)
[2018-01-13] MEDS ORDERED: IPRATROPIUM/ALBUTEROL 120 PUFF/4 GM MDI IH PRN (09:45)
[2018-01-13] MEDS ORDERED: ALBUTEROL SULFATE 0.083% NEB 2.5 MG/3 ML AMPUL NEB PRN (09:45)
[2018-01-13] MEDS ORDERED: RALTEGRAVIR POTASSIUM 400 MG TABLET PO SCH ×2 (10:00)
[2018-01-13] MEDS ORDERED: (PENDING PHARMACY ID) (Etravirine [Intelence] 200 MG) PO SCH (10:00)
--- NOTE | 2018-01-13 12:01 | PDOC PROGRESS REPORT ---
Subjective Progress Note for:: 01/13/18 Subjective:: No acute events overnight patient wants to go home. Complains of mild wheezing otherwise denies any shortness of breath fever chills abdominal pain diarrhea constipation or any lower extremity swelling. Reason For Visit: ACUTE BRONCHITIS Physical Exam Vital Signs: Temp Pulse Resp BP Pulse Ox 97.5 F 87 19 149/69 H 97 01/13/18 07:52 01/13/18 08:55 01/13/18 08:55 01/13/18 07:52 01/13/18 08:55 Intake & Output 01/12/18 01/13/18 01/14/18 06:59 06:59 06:59 Intake Total 1000 1000 Balance 1000 1000 Weight 76 kg General appearance: PRESENT: no acute distress, well-developed, well-nourished Head exam: PRESENT: atraumatic, normocephalic Eye exam: PRESENT: conjunctiva pink, EOMI, PERRLA. ABSENT: scleral icterus Ear exam: PRESENT: normal external ear exam Mouth exam: PRESENT: moist, tongue midline Neck exam: ABSENT: carotid bruit, JVD, lymphadenopathy, thyromegaly Respiratory exam: PRESENT: crackles. ABSENT: rales, rhonchi, wheezes Cardiovascular exam: PRESENT: RRR. ABSENT: diastolic murmur, rubs, systolic murmur Pulses: PRESENT: normal dorsalis pedis pul Vascular exam: PRESENT: normal capillary refill GI/Abdominal exam: PRESENT: normal bowel sounds, soft. ABSENT: distended, guarding, mass, organolmegaly, rebound, tenderness Rectal exam: PRESENT: deferred Extremities exam: PRESENT: full ROM. ABSENT: calf tenderness, clubbing, pedal edema Neurological exam: PRESENT: alert, awake, oriented to person, oriented to place , oriented to time, oriented to situation, CN II-XII grossly intact. ABSENT: motor sensory deficit Psychiatric exam: PRESENT: appropriate affect, normal mood. ABSENT: homicidal ideation, suicidal ideation Skin exam: PRESENT: dry, intact, warm. ABSENT: cyanosis, rash Results Laboratory Results: 01/13/18 04:50 01/13/18 04:50 01/12/18 01/12/18 01/13/18 19:03 19:03 04:50 WBC 7.6 RBC 3.59 L Hgb 11.0 L Hct 33.6 L MCV 94 MCH 30.6 MCHC 32.7 RDW 15.8 H Plt Count 91 L Seg Neutrophils % Not Reportable Lymphocytes % Not Reportable Monocytes % Not Reportable Eosinophils % Not Reportable Basophils % Not Reportable Absolute Neutrophils Not Reportable Absolute Lymphocytes Not Reportable Absolute Monocytes Not Reportable Absolute Eosinophils Not Reportable Absolute Basophils Not Reportable Sodium 141.4 Potassium 3.9 Chloride 103 Carbon Dioxide 26 Anion Gap 12 BUN 33 H Creatinine 5.15 H Est GFR ( Amer) 10 L Est GFR (Non-Af Amer) 9 L Glucose 178 H Calcium 7.6 L Phosphorus 4.4 5.0 H Magnesium 1.9 1.9 Total Bilirubin 0.4 AST 33 ALT 24 Alkaline Phosphatase 125 Total Protein 5.9 L Albumin 2.6 L 01/13/18 01/13/18 04:50 04:50 WBC 9.0 RBC 3.61 L Hgb 11.2 L Hct 33.8 L MCV 94 MCH 31.1 MCHC 33.2 RDW 16.0 H Plt Count 96 L Seg Neutrophils % Lymphocytes % Monocytes % Eosinophils % Basophils % Absolute Neutrophils Absolute Lymphocytes Absolute Monocytes Absolute Eosinophils Absolute Basophils Sodium 143.7 Potassium 4.0 Chloride 104 Carbon Dioxide 29 Anion Gap 11 BUN 39 H Creatinine 5.80 H Est GFR ( Amer) 9 L Est GFR (Non-Af Amer) 8 L Glucose 151 H Calcium 7.8 L Phosphorus Magnesium Total Bilirubin AST ALT Alkaline Phosphatase Total Protein Albumin Impressions: Chest X-Ray 01/11/18 15:51 IMPRESSION: CARDIAC ENLARGEMENT. VASCULAR CONGESTION. Assessment & Plan - Diagnosis (1) ESRD on dialysis Is this a current diagnosis for this admission?: Yes Plan: Monitor volume status. Electrolytes within normal limits. Patient is scheduled for hemodialysis tomorrow. Dr. Johnston her tire service technician has been consulted. Patient was started on IV Lasix (2) COPD with chronic bronchitis Is this a current diagnosis for this admission?: Yes Plan: Improving since switch to azithromycin. (3) Hypertension Is this a current diagnosis for this admission?: Yes Plan: Controlled. Restarted home meds. (4) Reflux esophagitis Is this a current diagnosis for this admission?: Yes Plan: On PPI. Outpatient GI follow-up
[2018-01-13] MEDS: CARVEDILOL 12.5 MG TABLET PO SCH ×2 (12:16→22:28)
[2018-01-13] MEDS: LOSARTAN POTASSIUM 25 MG TABLET PO SCH (12:17)
[2018-01-13] MEDS: CALCIUM ACETATE 667 MG CAPSULE PO SCH ×2 (12:18→18:04)
[2018-01-13] MEDS ORDERED: AZITHROMYCIN 250 MG TABLET PO ONE ×2 (13:00→16:00)
[2018-01-13] MEDS: CLONIDINE HCL 0.1 MG TABLET PO SCH ×2 (15:42→22:23)
[2018-01-13] MEDS: CEFTRIAXONE SODIUM 1,500 MG in DEXTROSE 5%-WATER 100 ML IV SCH (18:04)
[2018-01-13] MEDS ORDERED: ZOLPIDEM TARTRATE 5 MG TABLET PO SCH (22:00)
[2018-01-13] MEDS ORDERED: (PENDING PHARMACY ID) (Melatonin [Melatonin] 10 MG) PO SCH (22:00)
[2018-01-13] MEDS ORDERED: MELATONIN 5 MG TABLET PO SCH (22:00)
[2018-01-13] MEDS: IPRATROPIUM/ALBUTEROL 0.5-2.5 MG/3 ML AMPUL NEB PRN (22:55)
[2018-01-14] MEDS: IPRATROPIUM/ALBUTEROL 0.5-2.5 MG/3 ML AMPUL NEB PRN ×2 (02:50→11:21)
[2018-01-14] MEDS: HEPARIN SOD (PORCINE) 5,000 UNIT/ML 1 ML SYRINGE SUBCUT SCH (05:29)
[2018-01-14] MEDS ORDERED: LANSOPRAZOLE 30 MG TAB.RAP.DR PO SCH (06:00)
[2018-01-14] MEDS: METHYLPREDNISOLONE INJ 40 MG/1 ML SDV IV SCH (06:23)
[2018-01-14] MEDS: CLONIDINE HCL 0.1 MG TABLET PO SCH (06:24)
[2018-01-14 06:38] LABS: ABSOLUTE LYMPHOCYTES (AUTO) 0.4 10^3/uL (0.5-4.7); ABSOLUTE MONOCYTES (AUTO) 0.3 10^3/uL (0.1-1.4); ABSOLUTE NEUT (AUTO) 7.1 10^3/uL (1.7-8.2); BASOPHILS % (AUTO) 0.1 % (0-2); EOSINOPHILS % (AUTO) 0.3 % (0-6); HEMATOCRIT 31.8 % (36.0-47.0); HEMOGLOBIN 10.7 g/dL (12.0-15.5); LYMPHOCYTES % (AUTO) 5.2 % (13-45); MEAN CORPUSCULAR HEMOGLOBIN 31.7 pg (27.0-33.4); MEAN CORPUSCULAR HGB CONC 33.6 g/dL (32.0-36.0); MEAN CORPUSCULAR VOLUME 94 fl (80-97); MONOCYTES % (AUTO) 4.3 % (3-13); RED BLOOD COUNT 3.38 10^6/uL (3.72-5.28); RED CELL DISTRIBUTION WIDTH 15.7 % (11.5-14.0); SEGMENTED NEUTROPHILS % (AUTO) 90.1 % (42-78); TOTAL CELLS COUNTED % (AUTO) 100 %; WHITE BLOOD COUNT 7.8 10^3/uL (4.0-10.5)
[2018-01-14 06:56] LABS: ALANINE AMINOTRANSFERASE 27 U/L (9-52); ALBUMIN 2.4 g/dL (3.5-5.0); ALKALINE PHOSPHATASE 121 U/L (38-126); ANION GAP 15 (5-19); ASPARTATE AMINO TRANSFERASE 24 U/L (14-36); BILIRUBIN,DIRECT 0.3 mg/dL (0.0-0.4); BILIRUBIN,TOTAL 0.3 mg/dL (0.2-1.3); BLOOD UREA NITROGEN 50 mg/dL (7-20); CALCIUM 7.7 mg/dL (8.4-10.2); CARBON DIOXIDE 25 mmol/L (22-30); CHLORIDE 104 mmol/L (98-107); GLUCOSE 143 mg/dL (75-110); POTASSIUM 4.3 mmol/L (3.6-5.0); SODIUM 144.2 mmol/L (137-145); TOTAL PROTEIN 5.3 g/dL (6.3-8.2)
[2018-01-14 07:48] LABS: PLATELET COUNT 90 10^3/uL (150-450)
[2018-01-14] MEDS ORDERED: ALBUTEROL SULFATE HFA (90 MCG/PUFF) 200 PUFF/8.5 GM MDI IH PRN (07:51)
[2018-01-14 08:06] VITALS: BP 133/79
[2018-01-14] MEDS: CALCIUM ACETATE 667 MG CAPSULE PO SCH (10:46)
[2018-01-14] MEDS: CARVEDILOL 12.5 MG TABLET PO SCH (10:46)
[2018-01-14] MEDS: LOSARTAN POTASSIUM 25 MG TABLET PO SCH (10:47)
[2018-01-18] MEDS ORDERED: TENOFOVIR DISOPROXIL FUMARATE 300 MG PO SCH (18:00)
[2018-01-19] MEDS ORDERED: ERGOCALCIFEROL (VITAMIN D2) 50000 UNIT (1.25 MG) CAPSULE PO SCH (10:00)
[2018-01-19] MEDS ORDERED: ENTECAVIR 1 MG PO SCH (10:00)
--- NOTE | 2018-01-27 15:23 | PDOC DISCHARGE SUMMARY ---
General - Admit/Disc Date/PCP Admission Date/Primary Care Provider: 01/13/18 15:35 THIAGO COLIN Discharge Date: 01/14/18 - Discharge Diagnosis (1) ESRD on dialysis Is this a current diagnosis for this admission?: Yes Summary: Monitor volume status. Electrolytes within normal limits. Patient is scheduled for hemodialysis tomorrow. Dr. Johnston her service rig operator has been consulted. Patient was started on IV Lasix (2) COPD with chronic bronchitis Is this a current diagnosis for this admission?: Yes Summary: Oral azithromycin. Improved. Patient refused to be placed on steroids. (3) Hypertension Is this a current diagnosis for this admission?: Yes Summary: Controlled. Restarted home meds. (4) Reflux esophagitis Is this a current diagnosis for this admission?: Yes Summary: On PPI. 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 - Additional Information Resuscitation Status: Full Code Discharge Diet: As Tolerated Discharge Activity: Activity As Tolerated Prescriptions: Azithromycin 250 mg PO DAILY 3 Days #3 tablet Home Medications: Calcium Acetate [Phoslo 667 mg Capsule] 1,334 mg PO MEALS 01/12/18 Carvedilol [Coreg 25 mg Tablet] 25 mg PO Q12 01/12/18 Clonidine HCl [Catapres 0.1 mg Tablet] 0.1 mg PO Q8 01/12/18 Entecavir [Baraclude] 1 mg PO SA@1000 01/12/18 Ergocalciferol (Vitamin D2) [Drisdol 50,000 unit (1.25MG) Capsule] 50,000 unit PO SA@1000 01/12/18 Etravirine [Intelence] 200 mg PO TID 01/12/18 Ipratropium/Albuterol Sulfate [Combivent Respimat 4 gm Mdi] 3 puff IH DAILYP PRN 01/12/18 Losartan Potassium [Cozaar 25 mg Tablet] 25 mg PO DAILY 01/12/18 Melatonin 10 mg PO QHS 01/12/18 Nitroglycerin [Nitrostat 0.4 mg (1/150 Gr) Tabs 25/Bottle] 0.4 mg SL Q5MP PRN Omeprazole 40 mg PO DAILY 01/12/18 Oxycodone HCl/Acetaminophen [Endocet 5-325 Tablet] 1 tab PO Q8HP PRN 01/12/18 Pantoprazole Sodium [Protonix] 40 mg PO DAILY 01/12/18 Raltegravir Potassium [Isentress 400 mg Tablet] 400 mg PO DAILY 01/12/18 Tenofovir Disoproxil Fumarate [Viread] 300 mg PO FR@1800 01/12/18 Zolpidem Tartrate [Ambien 5 mg Tablet] 5 mg PO QHS 01/12/18 Azithromycin 250 mg PO DAILY 3 Days #3 tablet 01/14/18 Ceftriaxone Sodium [Rocephin Inj 1000 mg Vial] 1,500 mg IV DAILY@1600 vial Raltegravir Potassium [Isentress 400 mg Tablet] 400 mg PO DAILY tablet History of Present Illness Patient complains of: SOB, Cough History of Present Illness: SARAH RACHEL is a 57 year old female presenting to the emergency department secondary to cough wheezing and fever. States she has been sick for the past 1 week and was prescribed steroids on Sunday which she has been compliant with. Patient continues to smoke approximately half pack of cigarettes per day with her last cigarette 2 days ago she states. She also states she lives alone and is able to perform her own activities of daily living. States for the past couple of days she has been coughing more than usual with increased sputum production and felt feverish today which point she decided present to the emergency department for further workup and evaluation. Patient denies wearing oxygen at home. Patient is HIV positive and end-stage renal disease on dialysis Sunday. Patient also has a pacemaker. Follows with Dr. Johnston for nephrology. Physical Exam Vital Signs: Temp Pulse Resp BP Pulse Ox 97.8 F 71 15 133/79 H 94 01/14/18 10:34 01/14/18 11:21 01/14/18 11:21 01/14/18 07:46 01/14/18 11:21 Results Laboratory Results: 01/14/18 05:37 01/14/18 05:37 Impressions: Chest X-Ray 01/11/18 15:51 IMPRESSION: CARDIAC ENLARGEMENT. VASCULAR CONGESTION. Qualifiers - * PATIENT BEING DISCHARGED WITH ANY OF THE FOLLOWING DIAGNOSIS: No VTE patient discharged on overlapping Therapy?: Yes
== END 2018-01-14 12:30 | disposition home or self-care (01) | DRG 202 ==
LOC: ER 15:12 → EH 22:46 → 4N 01-12 15:54 → OBSVTOIN 01-13 15:35
PROVIDERS: ADMIT Family Medicine; ATTEND Family Medicine
PROC: 3E0F73Z Introduction of Anti-inflammatory into Respiratory Tract, Via Natural or Artificial Opening (ICD-10-PCS; principal; 2018-01-12)
DX: J20.9 Acute bronchitis, unspecified (principal); N18.6 End stage renal disease; B20 Human immunodeficiency virus [HIV] disease; I12.0 Hypertensive chronic kidney disease with stage 5 chronic kidney disease or end stage renal disease; J44.0 Chronic obstructive pulmonary disease with (acute) lower respiratory infection; J44.1 Chronic obstructive pulmonary disease with (acute) exacerbation; Z60.2 Problems related to living alone; D63.1 Anemia in chronic kidney disease; E78.00 Pure hypercholesterolemia, unspecified; E87.6 Hypokalemia; F17.210 Nicotine dependence, cigarettes, uncomplicated; K21.0 Gastro-esophageal reflux disease with esophagitis; R00.0 Tachycardia, unspecified; I25.2 Old myocardial infarction; Z79.899 Other long term (current) drug therapy; Z95.0 Presence of cardiac pacemaker; Z88.0 Allergy status to penicillin; Z88.8 Allergy status to other drugs, medicaments and biological substances; Z99.2 Dependence on renal dialysis; Z82.49 Family history of ischemic heart disease and other diseases of the circulatory system
CPT/HCPCS: 36415; 71046; 80048; 80053; 81001; 82553; 82962; 83605; 83735; 84100; 84484; 85025; 85027; 87040; 93005; 93010; 94640; 96361; 96365; 96375; 96376; 99291; G0378; J0456; J0696; J2920; J3490; J7030; J7620

== ENCOUNTER → 2018-12-31 | Outpatient (CLI) | payer MEDICAID, MEDICARE ==
--- NOTE | 2018-12-31 13:07 | WOMENS IMAGING REPORT ---
EXAM DESCRIPTION: BILAT SCREENING MAMMO W/CAD COMPLETED DATE/TIME: 12/31/2018 9:48 am REASON FOR STUDY: Z12.31 ENCOUNTER FOR SCREENING MAMMOGRAM FOR MALIGNANT NEOPLASM OF BREAST Z12.31 ENCNTR SCREEN MAMMOGRAM FOR MALIGNANT NEOPLASM OF LOTUS COMPARISON: 11/23/2016 and 11/23/2015. EXAM PARAMETERS: Standard craniocaudal and mediolateral oblique views of each breast recorded using digital acquisition. Read with the assistance of CAD. .[facility] - [employer] Worker Version 9.2 LIMITATIONS: None. FINDINGS: Findings present which are benign by mammographic criteria. No suspicious masses, calcifi cations or architectural distortion. Pertinent benign findings: Stable calcifications. Diffuse skin thickening in both breasts probably d ue to edema from congestive heart failure. Benign mammographic findings may include one or more of the following: Smooth masses, popcorn/rim/co arse calcifications, asymmetries, post-procedure changes, and lesions with long-standing stability. IMPRESSION: BENIGN MAMMOGRAPHIC FINDINGS. BIRADS 2 BREAST DENSITY: d. The breasts are extremely dense, which lowers the sensitivity of mammography. BIRAD: ASSESSMENT: 2 BENIGN FINDING(S) RECOMMENDATION: ROUTINE SCREENING COMMENT: The patient has been notified of the results by letter per MQSA requirements. Additional no tification policies are in place for contacting patient with suspicious or incomplete findings. Quality ID #[id number]: [employer] recommends an annual screening mammogram for women aged 40 years or over. This facility utilizes a reminder system to ensure that all patients receive reminder letters, and/or direct phone calls for appointments. This includes reminders for routine scr eening mammograms, diagnostic mammograms, or other Breast Imaging Interventions when appropriate. Th is patient will be placed in the appropriate reminder system. TECHNICAL DOCUMENTATION: FINDING NUMBER: (1) ASSESSMENT: (1) JOB ID: [id number] [employer]- All Rights Reserved Reading location - IP/workstation name: [email or web address]
== END ==
LOC: WI 09:00
PROVIDERS: ATTEND Internal Medicine
DX: Z12.31 Encounter for screening mammogram for malignant neoplasm of breast (principal)
CPT/HCPCS: 77067

== ENCOUNTER 2019-04-09 11:33 | Emergency (ER) | payer MEDICARE ==
--- NOTE | 2019-04-09 12:05 | ER Document Report ---
ED Medical Screen (RME) - General Chief Complaint: Abdominal Pain Stated Complaint: ABDOMINAL PAIN Time Seen by Provider: 04/09/19 12:01 Primary Care Provider: THIAGO COLIN MD [Primary Care Provider] - Follow up as needed Notes: Patient is a 58-year-old female dialysis patient, Sunday and finished dialysis today and presents to the emergency department for nausea and vomiting and abdominal pain. Patient voices she has been vomiting and had diarrhea for the last "2 days." States there is "bright red blood in my poop." Patient voices her abdomen is "hard." Patient's denying any fevers GENERAL: Alert, interacts well. No acute distress. ABDOMEN: Firm, generalized tenderness all 4 quadrants. I have greeted and performed a rapid initial assessment of this patient. A comprehensive ED assessment and evaluation of the patient, analysis of test results and completion of the medical decision making process will be conducted by additional ED providers. I have specifically instructed the patient or family members with the patient to immediately return to any nursing staff should anything change in the patient's condition or with their chief complaint. This medical record was dictated with voice recognizing software. There may be grammatical, syntax errors that are unintended. TRAVEL OUTSIDE OF THE [place] IN LAST 30 DAYS: No - Related Data Allergies/Adverse Reactions: Penicillins Allergy (Severe, Verified 04/09/19 11:59) Rash adhesive Allergy (Verified 04/09/19 11:59) Rash cinacalcet [From Sensipar] Allergy (Verified 04/09/19 11:59) cough seafood Allergy (Uncoded 04/09/19 11:59) Past Medical History - Social History Frequency of alcohol use: None Drug Abuse: None - Past Medical History Cardiac Medical History: Reports: Hx Heart Attack - 2008, 2014, Hx Hypercholesterolemia, Hx Hypertension, Hx Heart Murmur Denies: Hx Coronary Artery Disease Pulmonary Medical History: Reports: Hx Asthma, Hx COPD, Hx Pneumonia Denies: Hx Bronchitis, Hx Tuberculosis Neurological Medical History: Denies: Hx Cerebrovascular Accident, Hx Seizures Renal/ Medical History: Reports: Hx End Stage Renal Disease. Denies: Hx Peritoneal Dialysis GI Medical History: Musculoskeltal Medical History: Denies Hx Arthritis Psychiatric Medical History: Denies: Hx Depression Infectious Medical History: Reports: Hx HIV - 2005 Past Surgical History: Reports: Hx Cardiac Surgery - pacemaker/defib, Hx Pacemaker. Denies: Hx Hysterectomy - Immunizations Hx Diphtheria, Pertussis, Tetanus Vaccination: Yes Physical Exam - Vital signs Vitals: Temp Pulse Resp BP Pulse Ox 97.4 F 63 20 100/48 L 93 04/09/19 11:38 04/09/19 11:38 04/09/19 11:38 04/09/19 11:38 04/09/19 11:38 Course - Vital Signs Vital signs: Temp Pulse Resp BP Pulse Ox 97.4 F 63 20 100/48 L 93 04/09/19 11:38 04/09/19 11:38 04/09/19 11:38 04/09/19 11:38 04/09/19 11:38 Doctor's Discharge - Discharge Referrals: THIAGO COLIN MD [Primary Care Provider] - Follow up as needed
[2019-04-09 13:21] LABS: HEMOGLOBIN 10.7 g/dL (12.0-15.5); MEAN CORPUSCULAR HEMOGLOBIN 31.9 pg (27.0-33.4); MEAN CORPUSCULAR HGB CONC 32.4 g/dL (32.0-36.0); MEAN CORPUSCULAR VOLUME 98 fl (80-97); PLATELET COUNT 156 10^3/uL (150-450); RED BLOOD COUNT 3.36 10^6/uL (3.72-5.28); RED CELL DISTRIBUTION WIDTH 19.9 % (11.5-14.0); WHITE BLOOD COUNT 6.4 10^3/uL (4.0-10.5)
--- NOTE | 2019-04-09 13:39 | ER Document Report ---
ED GI/ <EKTA AGUIRREN - Last Filed: 04/09/19 18:36> - General TRAVEL OUTSIDE OF THE [place] IN LAST 30 DAYS: No <DANAYLAVERNE - Last Filed: 04/09/19 20:07> - General Chief Complaint: Abdominal Pain Stated Complaint: ABDOMINAL PAIN Time Seen by Provider: 04/09/19 12:01 Primary Care Provider: THIAGO COLIN MD [Primary Care Provider] - Follow up as needed - Related Data Allergies/Adverse Reactions: Penicillins Allergy (Severe, Verified 04/09/19 11:59) Rash adhesive Allergy (Verified 04/09/19 11:59) Rash cinacalcet [From Sensipar] Allergy (Verified 04/09/19 11:59) cough seafood Allergy (Uncoded 04/09/19 11:59) Past Medical History - Social History Smoking Status: Current Every Day Smoker Frequency of alcohol use: None Drug Abuse: None Family History: CAD Patient has suicidal ideation: No Patient has homicidal ideation: No - Past Medical History Cardiac Medical History: Reports: Hx Heart Attack - 2008, 2014, Hx Hypercholesterolemia, Hx Hypertension, Hx Heart Murmur Denies: Hx Coronary Artery Disease Pulmonary Medical History: Reports: Hx Asthma, Hx COPD, Hx Pneumonia Denies: Hx Bronchitis, Hx Tuberculosis Neurological Medical History: Denies: Hx Cerebrovascular Accident, Hx Seizures Renal/ Medical History: Reports: Hx End Stage Renal Disease. Denies: Hx Peritoneal Dialysis GI Medical History: Musculoskeletal Medical History: Denies Hx Arthritis Psychiatric Medical History: Denies: Hx Depression Infectious Medical History: Reports: Hx HIV - 2005 Past Surgical History: Reports: Hx Cardiac Surgery - pacemaker/defib, Hx Pacemaker. Denies: Hx Hysterectomy - Immunizations Hx Diphtheria, Pertussis, Tetanus Vaccination: Yes Hx Pneumococcal Vaccination: 02/18/14 <LAVERNE JON - Last Filed: 04/09/19 20:07> Physical Exam - General General appearance: Appears well, Alert In distress: None - HEENT Head: Normocephalic Eyes: Normal Conjunctiva: Normal Nasal: Normal Mouth/Lips: Normal Mucous membranes: Normal Neck: Normal, Supple. No: Lymphadenopathy - Respiratory Respiratory status: No respiratory distress Chest status: Nontender Breath sounds: Nonproductive cough, Rhonchi, Wheezing Chest palpation: Normal - Cardiovascular Rhythm: Regular Heart sounds: S1 appreciated, S2 appreciated Murmur: Yes - Abdominal Inspection: Other - distened Distension: Distended Bowel sounds: Normal Tenderness: Tender - Epigastric, left upper quadrant, left side of abdomen, suprapubic, Guarding Organomegaly: No organomegaly - Back Back: Normal, Nontender. No: CVA tenderness - Extremities General upper extremity: Normal inspection, Normal strength General lower extremity: Normal inspection, Normal strength - Neurological Neuro grossly intact: Yes Cognition: Normal [place] Coma Scale Eye Opening: Spontaneous [place] Coma Scale Verbal: Oriented [place] Coma Scale Motor: Obeys Commands [place] Coma Scale Total: 15 - Psychological Associated symptoms: Normal affect, Normal mood - Skin Skin Temperature: Warm Skin Moisture: Dry Skin Color: Normal <LAVERNE JON - Last Filed: 04/09/19 20:07> - Vital signs Vitals: Temp Pulse Resp BP Pulse Ox 97.4 F 63 20 100/48 L 93 04/09/19 11:38 04/09/19 11:38 04/09/19 11:38 04/09/19 11:38 04/09/19 11:38 Course - Laboratory Result Diagrams: 04/09/19 13:01 04/09/19 13:01 <PHOEBE AGUIRRE - Last Filed: 04/09/19 18:36> - Laboratory Result Diagrams: 04/09/19 13:01 04/09/19 13:01 - Diagnostic Test Radiology reviewed: Reports reviewed <LAVERNE JON - Last Filed: 04/09/19 20:07> - Re-evaluation Re-evalutation: 04/09/19 16:[address] Tello regarding patient presentation and concern about ci rrhosis with ascites. Dr. Tello advises getting supplies together for bedside thoracentesis that she will perform with ultrasound. Discussed this plan of care with patient who is very pleased to have thoracentesis performed as she has had this procedure in the past to remove fluid. 04/09/19 16:57 RN obtaining supplies for bedside paracentesis. 04/09/19 17:04 04/09/19 19:[address] Tello. Patient reports improved abdominal discomfort as well as improved nausea. Dr. Tello like patient to be admitted so that she can have her cirrhosis and ascites further evaluated as she has not had this diagnosis in the past. 04/09/19 19:[address] Marrero regarding request for admission. Dr. Marrero feels that patient does not have any normal albumin or protein on chemistry and that she does not warrant admission at this time. States that patient's evaluation can be completed on an outpatient basis. Discussed this conversation with Dr. Tello who states that as long as patient is clinically better with stable vital signs she can be discharged to follow-up with her primary doctor for further evaluation of her cirrhosis and ascites. (LAVERNE JON) - Vital Signs Vital signs: Temp Pulse Resp BP Pulse Ox 97.4 F 63 15 122/76 98 04/09/19 11:38 04/09/19 11:38 04/09/19 18:30 04/09/19 18:30 04/09/19 18:30 - Laboratory Laboratory results interpreted by me: 04/09/19 04/09/19 04/09/19 13:01 13:01 13:01 RBC 3.36 L Hgb 10.7 L Hct 33.0 L MCV 98 H RDW 19.9 H Creatinine 4.00 H Est GFR ( Amer) 14 L Est GFR (MDRD) Non-Af 12 L Calcium 8.2 L Direct Bilirubin 0.7 H AST 66 H Alkaline Phosphatase 257 H NT-Pro-B Natriuret Pep [id number] H 04/09/19 04/09/19 04/09/19 13:01 13:01 13:01 RBC 3.36 L Hgb 10.7 L Hct 33.0 L MCV 98 H RDW 19.9 H Creatinine 4.00 H Est GFR ( Amer) 14 L Est GFR (MDRD) Non-Af 12 L Calcium 8.2 L Direct Bilirubin 0.7 H AST 66 H Alkaline Phosphatase 257 H NT-Pro-B Natriuret Pep [id number] H 04/09/19 19:59 Labs- Entire Visit 04/09/19 04/09/19 04/09/19 13:01 13:01 13:01 WBC 6.4 RBC 3.36 L Hgb 10.7 L Hct 33.0 L MCV 98 H MCH 31.9 MCHC 32.4 RDW 19.9 H Plt Count 156 Lymph % (Auto) Not Reportable [place] % (Auto) Not Reportable Eos % (Auto) Not Reportable Baso % (Auto) Not Reportable Absolute Neuts (auto) Not Reportable Absolute Lymphs (auto) Not Reportable Absolute Monos (auto) Not Reportable Absolute Eos (auto) Not Reportable Absolute Basos (auto) Not Reportable Total Counted 100 Seg Neutrophils % Not Reportable Seg Neuts % (Manual) 63 Lymphocytes % (Manual) 29 Atypical Lymphs % 1 Monocytes % (Manual) 3 Eosinophils % (Manual) 4 Basophils % (Manual) 0 Abs Neuts (Manual) 4.0 Abs Lymphs (Manual) 1.9 Abs Monocytes (Manual) 0.2 Absolute Eos (Manual) 0.3 Abs Basophils (Manual) 0.0 Nucleated RBCs 1 Toxic Vacuolation PRESENT Giant Platelets PRESENT Platelet Comment ADEQUATE Polychromasia 1+ Anisocytosis 2+ [place] Bodies PRESENT Sodium 141.2 Potassium 3.8 Chloride 101 Carbon Dioxide 30 Anion Gap 10 BUN 18 Creatinine 4.00 H Est GFR ( Amer) 14 L Est GFR (MDRD) Non-Af 12 L Glucose 79 Calcium 8.2 L Total Bilirubin 1.0 Direct Bilirubin 0.7 H Neonat Total Bilirubin Not Reportable Neonat Direct Bilirubin Not Reportable Neonat Indirect Bili Not Reportable AST 66 H ALT 16 Alkaline Phosphatase 257 H Ammonia Troponin I NT-Pro-B Natriuret Pep 50564 H Total Protein 7.9 Albumin 3.6 Lipase 120.9 04/09/19 04/09/19 15:00 15:00 WBC RBC Hgb Hct MCV MCH MCHC RDW Plt Count Lymph % (Auto) [place] % (Auto) Eos % (Auto) Baso % (Auto) Absolute Neuts (auto) Absolute Lymphs (auto) Absolute Monos (auto) Absolute Eos (auto) Absolute Basos (auto) Total Counted Seg Neutrophils % Seg Neuts % (Manual) Lymphocytes % (Manual) Atypical Lymphs % Monocytes % (Manual) Eosinophils % (Manual) Basophils % (Manual) Abs Neuts (Manual) Abs Lymphs (Manual) Abs Monocytes (Manual) Absolute Eos (Manual) Abs Basophils (Manual) Nucleated RBCs Toxic Vacuolation Giant Platelets Platelet Comment Polychromasia Anisocytosis [place] Bodies Sodium Potassium Chloride Carbon Dioxide Anion Gap BUN Creatinine Est GFR ( Amer) Est GFR (MDRD) Non-Af Glucose Calcium Total Bilirubin Direct Bilirubin Neonat Total Bilirubin Neonat Direct Bilirubin Neonat Indirect Bili AST ALT Alkaline Phosphatase Ammonia 21.7 Troponin I 0.038 NT-Pro-B Natriuret Pep Total Protein Albumin Lipase (LAVERNE JON) Procedures - Paracentesis RLQ Consent obtained: Yes Paracentesis pre-procedure: Sterile PPE donned, Chloraprep applied, Sterile drapes applied Needle size: 18 Paracentesis location: RLQ Anesthetic type: 1% Lidocaine mL's of anesthetic: 10 Amount/type of drainage: 2000 Number of attempts: 1 Ultrasound guided: Yes Complications: No <PHOEBE AGUIRRE - Last Filed: 04/09/19 18:36> - Paracentesis RLQ Notes: 04/09/19 18:36 I personally performed the paracentesis ultrasound-guided. Patient tolerated procedure without any difficulties. 2 L of fluid drained. Patient felt significantly improved. -Phoebe Aguirre MD (PHOEBE AGUIRRE) Discharge <PHOEBE AGUIRRE - Last Filed: 04/09/19 18:36> <LAVERNE JON - Last Filed: 04/09/19 20:07> - Discharge Clinical Impression: COPD with chronic bronchitis, S/P abdominal paracentesis, Pleural effusion, right Ascites Qualifiers: Ascites type: other type Qualified Code(s): R18.8 - Other ascites Cirrhosis Qualifiers: Hepatic cirrhosis type: unspecified hepatic cirrhosis Ascites presence: with ascites Qualified Code(s): K74.60 - Unspecified cirrhosis of liver; R18.8 - Other ascites Condition: Stable Disposition: HOME, SELF-CARE Instructions: Abdominal Pain ([facility]), Chronic Obstructive Lung Disease ([facility]), Pleurisy ([facility]), Cirrhosis ([facility]) Additional Instructions: Return immediately for any new or worsening symptoms: Difficulty breathing, increased abdominal pain, vomiting, abdominal swelling, fever or any concerning symptoms Followup with your primary care provider, call tomorrow to make a followup appointment Hepatitis panel is pending at this time Your CT scan showed that you had cirrhosis with ascites which causes the fluid buildup in your abdomen. You should see your primary doctor for further evaluation of this finding. They will need to perform additional testing on an outpatient basis. Follow-up with a soil technologist for further evaluation. Use your nebulizer that you have at home as directed Referrals: THIAGO COLIN MD [Primary Care Provider] - Follow up tomorrow RENEE KAN MD [ACTIVE STAFF] - Follow up as needed
[2019-04-09 13:45] LABS: ALBUMIN 3.6 g/dL (3.5-5.0); ALKALINE PHOSPHATASE 257 U/L (38-126); ANION GAP 10 (5-19); ASPARTATE AMINO TRANSFERASE 66 U/L (14-36); BILIRUBIN,DIRECT 0.7 mg/dL (0.0-0.4); BLOOD UREA NITROGEN 18 mg/dL (7-20); CALCIUM 8.2 mg/dL (8.4-10.2); CARBON DIOXIDE 30 mmol/L (22-30); CHLORIDE 101 mmol/L (98-107); GLUCOSE 79 mg/dL (75-110); POTASSIUM 3.8 mmol/L (3.6-5.0); TOTAL PROTEIN 7.9 g/dL (6.3-8.2)
[2019-04-09 13:54] LABS: ABSOLUTE LYMPHOCYTES# (MANUAL) 1.9 10^3/uL (0.5-4.7); ABSOLUTE MONOCYTES # (MANUAL) 0.2 10^3/uL (0.1-1.4); BASOPHILS % (MANUAL) 0 % (0-2); EOSINOPHILS % (MANUAL) 4 % (0-6); LYMPHOCYTES % (MANUAL) 29 % (13-45); MONOCYTES % (MANUAL) 3 % (3-13); NUCLEATED RED BLOOD CELLS 1 /100 WBC (0); SEGMENTED NEUTROPHILS % (MAN) 63 % (42-78); TOTAL CELLS COUNTED 100
[2019-04-09 13:56] LABS: ANISOCYTOSIS 2+; HOWELL-JOLLY BODIES PRESENT; PLATELET COMMENT ADEQUATE; PLATELET GIANT PRESENT; POLYCHROMASIA 1+; TOXIC VACUOLATION PRESENT
--- NOTE | 2019-04-09 13:59 | RADIOLOGY REPORT (SQ) ---
EXAM DESCRIPTION: CT ABD/PELVIS NO ORAL OR IV COMPLETED DATE/TIME: 04/09/2019 1:43 pm REASON FOR STUDY: general pain/distention COMPARISON: CT of the abdomen pelvis without contrast from 05/11/2019. TECHNIQUE: CT scan of the abdomen and pelvis performed without intravenous or oral contrast. Images reviewed with lung, soft tissue, and bone windows. Reconstructed coronal and sagittal MPR images revi ewed. All images stored on PACS. All CT scanners at this facility use dose modulation, iterative reconstruction, and/or weight based d osing when appropriate to reduce radiation dose to as low as reasonably achievable (ALARA). [facility]: Dose Right [facility]: CareDose [facility]: Dose Right [facility]: Teradose 4D [facility]: [employer] RADIATION DOSE: CT Rad equipment meets quality standard of care and radiation dose reduction techniq ues were employed. CTDIvol: 12.8 mGy. DLP: 683 mGy-cm.mGy. LIMITATIONS: None. FINDINGS: LOWER CHEST: Cardiomegaly and moderate pericardial effusion. There is a trace amount of f luid in the right pleural space and there are parenchymal bands in the right middle and right lower l obes. NON-CONTRASTED LIVER, SPLEEN, ADRENALS: Evaluation is limited due to the absence of intravenous contr ast. The nodular contour of the liver is suggestive of cirrhosis. In addition, the low attenuation of the hepatic parenchyma is suggestive of hepatic steatosis. The spleen is enlarged and it measures approximately 15.1 cm in AP diameter. There is no abnormality of the adrenal glands. PANCREAS: No gross acute abnormality of the pancreas GALLBLADDER: No abnormality that is apparent on CT. RIGHT KIDNEY AND URETER: Evaluation is limited due to the absence of intravenous contrast. The kidne y is atrophic and there are staghorn calcifications in its upper pole. There is no associated hydron ephrosis, hydroureter or ureterolithiasis. LEFT KIDNEY AND URETER: Evaluation is limited due to the absence of intravenous contrast. The kidney is atrophic. There is no hydronephrosis, nephrolithiasis, hydroureter or ureterolithiasis. AORTA AND RETROPERITONEUM: Atherosclerotic calcification of the abdominal aorta, iliac vessels, and a bdominal vasculature. There is no aneurysmal dilate station. There is no retroperitoneal hemorrhage , mass or adenopathy. BOWEL AND PERITONEAL CAVITY: Moderate amount of ascites. There is no bowel obstruction, bowel wall t hickening, or pericolonic/ perienteric inflammation. APPENDIX: Unable to identify the appendix. PELVIS, BLADDER, AND ABDOMINAL WALL:No abnormality of the uterus and adnexa that is apparent on CT. The urinary bladder is compressed. The layering hyper attenuation within the dependent portion of th e pelvis is unchanged from 05/11/2017. BONES: Findings of renal osteodystrophy. There is a prominent Schmorl's node at the inferior endplat e of L1. OTHER: Anasarca up IMPRESSION: 1. Cardiomegaly. 2. Cirrhosis with findings of portal hypertension including ascites and splenomegaly. 3. End-stage renal disease with evidence of renal osteodystrophy. 4. Other findings as above. COMMENT: Quality ID # [id number]: Final reports with documentation of one or more dose reduction techniques (e.g., Automated exposure control, adjustment of the mA and/or kV according to patient size, use of iterative reconstruction technique) TECHNICAL DOCUMENTATION: JOB ID: [id number] [employer]- All Rights Reserved Reading location - IP/workstation name: [email or web address]
--- NOTE | 2019-04-09 14:34 | RADIOLOGY REPORT (SQ) ---
EXAM DESCRIPTION: CHEST 2 VIEWS COMPLETED DATE/TIME: 04/09/2019 1:51 pm REASON FOR STUDY: cough COMPARISON: AP view of the chest from 01/11/[address] of the abdomen and pelvis without contrast fr om 04/17/2019. . EXAM PARAMETERS: NUMBER OF VIEWS: two views TECHNIQUE: Digital Frontal and Lateral radiographic views of the chest acquired. RADIATION DOSE: NA LIMITATIONS: none FINDINGS: LUNGS AND PLEURA: The right costophrenic sulcus is blunted and the right pleural lining is thickened. There is no consolidation or pneumothorax. MEDIASTINUM AND HILAR STRUCTURES: Stable mediastinal and hilar contours. HEART AND VASCULAR STRUCTURES: Stable cardiomegaly. BONES: No acute findings. HARDWARE: Stable right subclavian vein approach dual lead ICD. OTHER: No other finding. IMPRESSION: Cardiomegaly and right pleural effusion. TECHNICAL DOCUMENTATION: JOB ID: [id number] [employer]- All Rights Reserved Reading location - IP/workstation name: [email or web address]
[2019-04-09] MEDS ORDERED: MORPHINE SULFATE 10 MG/ML INJ ONE (17:42)
[2019-04-09] MEDS ORDERED: ONDANSETRON HCL INJ/PF 4 MG/2 ML SDV ONE (17:42)
[2019-04-09] MEDS ORDERED: MORPHINE SULFATE 10 MG/ML INJ IV ONE (17:44)
[2019-04-09] MEDS ORDERED: ONDANSETRON HCL INJ/PF 4 MG/2 ML SDV IV ONE (17:44)
[2019-04-09 19:54] LABS: FLUID TYPE PERITONEAL
[2019-04-09] MEDS ORDERED: IPRATROPIUM/ALBUTEROL 0.5-2.5 MG/3 ML AMPUL NEB ONE (19:54)
[2019-04-09 19:56] LABS: FLUID APPEARANCE CLEAR; FLUID COLOR YELLOW; FLUID SOURCE ABDOMEN; FLUID VISCOSITY LIQUID
--- NOTE | 2019-04-09 20:25 | EKG REPORT ---
SEVERITY:- ABNORMAL ECG - A-V DUAL-PACED RHYTHM WITH SOME INHIBITION : Confirmed by: Patrick Blunt MD 09-Apr-2019 20:25:04
[2019-04-09 20:52] VITALS: BP 96/61
== END 2019-04-09 20:52 | disposition home or self-care (01) ==
LOC: ER 11:33
DX: K74.60 Unspecified cirrhosis of liver (principal); R18.8 Other ascites; J44.9 Chronic obstructive pulmonary disease, unspecified; K59.00 Constipation, unspecified; R05 Cough; R06.02 Shortness of breath; R31.9 Hematuria, unspecified; F17.200 Nicotine dependence, unspecified, uncomplicated; I10 Essential (primary) hypertension; I25.2 Old myocardial infarction; Z95.810 Presence of automatic (implantable) cardiac defibrillator; Z87.01 Personal history of pneumonia (recurrent); Z21 Asymptomatic human immunodeficiency virus [HIV] infection status; Z88.0 Allergy status to penicillin; Z91.048 Other nonmedicinal substance allergy status; Z91.013 Allergy to seafood; Z88.8 Allergy status to other drugs, medicaments and biological substances
CPT/HCPCS: 93005; 36415; 87205; 87070; 82140; 83690; 85025; 89050; 87075; 80053; 84484; 84157; 80074; 83880; 71046; 74176; 93010; 49083; J2270; J2405; A9270; 94640; 96374; 96375; 99284; J7620

== ENCOUNTER 2019-06-13 10:19 | Emergency (ER) | payer MEDICARE ==
[2019-06-13] MEDS ORDERED: IPRATROPIUM/ALBUTEROL 0.5-2.5 MG/3 ML AMPUL NEB ONE ×2 (10:40→17:49)
[2019-06-13] MEDS ORDERED: ASPIRIN 81 MG TABLET, CHEWABLE PO ONE (10:40)
--- NOTE | 2019-06-13 10:41 | ER Document Report ---
ED Medical Screen (RME) - General Chief Complaint: Chest Pain Stated Complaint: CHEST PAIN Time Seen by Provider: 06/13/19 10:36 Primary Care Provider: THIAGO COLIN MD [Primary Care Provider] - Follow up as needed Information source: Patient Notes: Patient presents complaining of chest pain that started at 10 AM today with dizziness. Patient also reports cough. Patient denies any nausea or vomiting. Patient is a dialysis patient on Sunday and did finish her dialysis session today. Patient also has a history of HIV, COPD and asthma. I have greeted and performed a rapid initial assessment of this patient. A comprehensive ED assessment and evaluation of the patient, analysis of test results and completion of the medical decision making process will be conducted by additional ED providers. TRAVEL OUTSIDE OF THE [place] IN LAST 30 DAYS: No - Related Data Allergies/Adverse Reactions: Penicillins Allergy (Severe, Verified 06/13/19 10:38) Rash adhesive Allergy (Verified 06/13/19 10:38) Rash cinacalcet [From Sensipar] Allergy (Verified 06/13/19 10:38) cough seafood Allergy (Uncoded 06/13/19 10:38) Past Medical History - Past Medical History Cardiac Medical History: Reports: Hx Coronary Artery Disease, Hx Heart Attack - 2008, 2014, Hx Hypercholesterolemia, Hx Hypertension, Hx Heart Murmur Pulmonary Medical History: Reports: Hx Asthma, Hx COPD, Hx Pneumonia Denies: Hx Bronchitis, Hx Tuberculosis Neurological Medical History: Denies: Hx Cerebrovascular Accident, Hx Seizures Renal/ Medical History: Reports: Hx End Stage Renal Disease. Denies: Hx Peritoneal Dialysis GI Medical History: Musculoskeltal Medical History: Denies Hx Arthritis Psychiatric Medical History: Reports: Hx Depression Infectious Medical History: Reports: Hx HIV - 2005, followed at [facility] Past Surgical History: Reports: Hx Cardiac Surgery - pacemaker/defib, Hx Pacemaker - With AICD, Other - PTCA at [place]. Denies: Hx Hysterectomy - Immunizations Hx Diphtheria, Pertussis, Tetanus Vaccination: Yes Physical Exam - Respiratory Respiratory status: No respiratory distress Chest status: Tender, Pain with cough Breath sounds: Nonproductive cough, Wheezing Doctor's Discharge - Discharge Referrals: THIAGO COLIN MD [Primary Care Provider] - Follow up as needed
--- NOTE | 2019-06-13 11:22 | EKG REPORT ---
SEVERITY:- ABNORMAL ECG - ATRIAL FIBRILLATION VENTRICULAR PACING ON DEMAND NONSPECIFIC INTRAVENTRICULAR CONDUCTION DELAY NONSPECIFIC ST-T CHANGES ANTEROLATERAL LEADS : Confirmed by: Patrick Blunt MD 13-Jun-2019 11:22:29
--- NOTE | 2019-06-13 11:36 | RADIOLOGY REPORT (SQ) ---
EXAM DESCRIPTION: CHEST 2 VIEWS COMPLETED DATE/TIME: 06/13/2019 11:20 am REASON FOR STUDY: cp, sob COMPARISON: AP view of the chest from 05/02/2019. EXAM PARAMETERS: NUMBER OF VIEWS: two views TECHNIQUE: PA and lateral views of the chest were obtained. RADIATION DOSE: NA LIMITATIONS: none FINDINGS: LUNGS AND PLEURA: Prominence of the interstitium and basal and pleural opacities in the in ferior right hemithorax that could represent a combination of atelectasis, pleural fluid and/or conso lidation. There is no pneumothorax. The horizontal fissure is thickened. MEDIASTINUM AND HILAR STRUCTURES: No mediastinal or hilar contour abnormality. HEART AND VASCULAR STRUCTURES: The cardiac silhouette is enlarged BONES: No acute findings. HARDWARE: Intact right subclavian vein approach ICD. OTHER: No other finding. IMPRESSION: Cardiomegaly, prominence of the interstitium, and pleural and parenchymal opacities in t he inferior right hemithorax that could represent a combination of pleural fluid and atelectasis. Th e constellation of findings is suggestive of volume overload/CHF. TECHNICAL DOCUMENTATION: JOB ID: [id number] [employer]- All Rights Reserved Reading location - IP/workstation name: [email or web address]
[2019-06-13] MEDS ORDERED: NORMAL SALINE 1000 ML 250 ML IV ONE (12:24)
[2019-06-13] MEDS ORDERED: NORMAL SALINE 1000 ML 1,000 ML IV ONE (12:26)
--- NOTE | 2019-06-13 12:40 | ER Document Report ---
Entered by TRACEE STEWART SCRIBE 06/13/19 1225 Acting as scribe for:LEONARDA CARDONA MD ED General - General Chief Complaint: Chest Pain > 30 Stated Complaint: CHEST PAIN Time Seen by Provider: 06/13/19 10:36 Primary Care Provider: THIAGO COLIN MD [Primary Care Provider] - Follow up as needed Information source: Patient Notes: 58 year old female presents to the ED with chest pain and dizziness. Patients states that she was dizzy when she woke up this morning, when she first came into the ED but is not dizzy at the moment. Patient was tearful when explaining. Patient reports that she went for her dialysis appointment at 10AM this morning and when they dialyzed her "they wouldn't pull any fluid". Patient is hypotensive at 98/43. Dialysis was contacted and reports that she was given 400-500 mL's of fluids during dialysis to raise her blood pressure. Full dialysis treatment was done, but no fluid was removed, and in fact she had 400-500 mLs of fluid added. She was seen here on 05/02/2019 with similar presentation but had not been to dialysis. She was given IV fluids in the emergency room to raise her blood pressure, sent to radiology suite for an ultrasound-guided paracentesis, then admitted to the hospital for dialysis. TRAVEL OUTSIDE OF THE [place] IN LAST 30 DAYS: No - Related Data Allergies/Adverse Reactions: Penicillins Allergy (Severe, Verified 06/13/19 10:38) Rash adhesive Allergy (Verified 06/13/19 10:38) Rash cinacalcet [From Sensipar] Allergy (Verified 06/13/19 10:38) cough seafood Allergy (Uncoded 06/13/19 10:38) Home Medications: [facility] Past Medical History - General Information source: Patient - Social History Smoking Status: Current Every Day Smoker Cigarette use (# per day): Yes Chew tobacco use (# tins/day): No Frequency of alcohol use: None Drug Abuse: None Family History: CAD Patient has suicidal ideation: No Patient has homicidal ideation: No - Past Medical History Cardiac Medical History: Reports: Hx Coronary Artery Disease, Hx Heart Attack - 2008, 2014, Hx Hypercholesterolemia, Hx Hypertension, Hx Heart Murmur Pulmonary Medical History: Reports: Hx Asthma, Hx COPD, Hx Pneumonia Renal/ Medical History: Reports: Hx End Stage Renal Disease GI Medical History: Musculoskeletal Medical History: Psychiatric Medical History: Reports: Hx Depression Infectious Medical History: Reports: Hx HIV - 2005, followed at [facility] Past Surgical History: Reports: Hx Pacemaker - With AICD, Other - PTCA at [place] - Immunizations Hx Diphtheria, Pertussis, Tetanus Vaccination: Yes Hx Pneumococcal Vaccination: 02/18/14 Review of Systems - Review of Systems Constitutional: No symptoms reported EENT: No symptoms reported Cardiovascular: See HPI, Chest pain, Dizziness Respiratory: No symptoms reported Gastrointestinal: No symptoms reported Genitourinary: No symptoms reported Female Genitourinary: No symptoms reported Musculoskeletal: No symptoms reported Skin: No symptoms reported Hematologic/Lymphatic: No symptoms reported Neurological/Psychological: No symptoms reported -: Yes All other systems reviewed and negative Physical Exam - Vital signs Vitals: Temp Pulse Resp BP 97.4 F 79 17 98/43 L 06/13/19 10:35 06/13/19 10:35 06/13/19 10:35 06/13/19 10:35 - Notes Notes: General: Alert, appears uncomfortable. HEENT: Normocephalic. Atraumatic. PERRL. Extraocular movements intact. Oropharynx clear. Neck: Supple. Non-tender. Respiratory: No respiratory distress. Clear and equal breath sounds bilaterally. Left anterior and lateral chest wall tenderness to palpation. Cardiovascular: Regular rate and rhythm. Abdominal: Abdomen is mildly tender. Moderate distension. Normal Bowel Sounds. Back: No gross abnormalities. Extremities: Moves all four extremities. Upper extremities: RUE fistula with tape overlying. Lower extremities: Normal inspection. No edema. Normal ROM. Neurological: Normal cognition. AAOx4. Normal speech. Psychological: Tearful. Skin: Warm. Dry. Normal color. Course - Re-evaluation Re-evalutation: 06/13/19 18:07 Patient had 4 L of fluid removed during the paracentesis. 06/13/19 18:15 Patient is complaining of increasing shortness of breath and wants a breathing treatment. She normally does albuterol treatments 4 times a day at home. A DuoNeb treatment was ordered. - Vital Signs Vital signs: Temp Pulse Resp BP Pulse Ox 97.5 F 76 19 108/69 92 06/13/19 20:25 06/13/19 20:25 06/13/19 20:25 06/13/19 20:25 06/13/19 20:25 - Laboratory Result Diagrams: 06/13/19 12:40 06/13/19 12:40 Laboratory results interpreted by me: 06/13/19 06/13/19 06/13/19 12:40 12:40 12:40 RBC 2.36 L Hgb 7.8 L Hct 23.4 L MCV 99 H RDW 24.9 H Plt Count 106 L PT 15.7 H Potassium 3.3 L Chloride 97 L Carbon Dioxide 31 H Creatinine 2.82 H Est GFR ( Amer) 21 L Est GFR (MDRD) Non-Af 17 L Direct Bilirubin 0.8 H AST 70 H Alkaline Phosphatase 338 H Albumin 3.4 L Crossmatch 06/13/19 15:18 RBC Hgb Hct MCV RDW Plt Count PT Potassium Chloride Carbon Dioxide Creatinine Est GFR ( Amer) Est GFR (MDRD) Non-Af Direct Bilirubin AST Alkaline Phosphatase Albumin Crossmatch See Detail - Diagnostic Test Radiology reviewed: Image reviewed, Reports reviewed - Chest x-ray does not show any acute cardiopulmonary process. - EKG Interpretation by Me EKG shows normal: [place], Intervals, QRS Complexes, ST-T Waves Rate: Normal - 79 Rhythm: A.Fib [place]/QRS: IVCD When compared to previous EKG there are: No significant change - Consults Dr. Martinez Time consulted: 13:57 Consulted provider: other - She spoke with dialysis. She reports the patient was discharged home and came to the emergency room of her own accord. She did have complete dialysis,. She states her blood pressures frequently below 100 systolic. She did recommend giving 1 unit of packed RBCs and albumin due to the hemoglobin is 7.8 in the ascites. - Transfer of Care Care transferred to following provider: Dr. Romero Notes: 06/13/19 21:31 Patient is receiving blood at this time, it should be done by about 10 PM and then the patient can be discharged home. Critical Care Note - Critical Care Note Total time excluding time spent on procedures (mins): 40 Discharge - Discharge Clinical Impression: Chronic renal failure, stage 5, COPD with chronic bronchitis Hypotension Qualifiers: Hypotension type: unspecified hypotension type Qualified Code(s): I95.9 - Hypotension, unspecified Anemia Qualifiers: Anemia type: unspecified type Qualified Code(s): D64.9 - Anemia, unspecified Anxiety disorder Qualifiers: Anxiety disorder type: unspecified anxiety disorder Qualified Code(s): F41.9 - Anxiety disorder, unspecified Ascites Qualifiers: Ascites type: other type Qualified Code(s): R18.8 - Other ascites Condition: Stable Disposition: HOME, SELF-CARE Additional Instructions: You had 4 L of fluid removed from your abdominal cavity today. Your hemoglobin level was 7.8, so you were given 1 unit of packed red blood cells. Your blood pressure was a little low so you were given some IV fluids. You should go to dialysis Sunday as scheduled and follow-up with your doctors there if any problems. RETURN TO THE EMERGENCY ROOM IF ANY NEW OR WORSENING SYMPTOMS. Referrals: THIAGO COLIN MD [Primary Care Provider] - Follow up as needed Scribe Attestation: 06/13/19 14:24 I personally performed the services described in the documentation, reviewed and edited the documentation which was dictated to the scribe in my presence, and it accurately records my words and actions. I personally performed the services described in the documentation, reviewed and edited the documentation which was dictated to the scribe in my presence, and it accurately records my words and actions.
[2019-06-13 12:56] LABS: HEMATOCRIT 23.4 % (36.0-47.0); MEAN CORPUSCULAR HEMOGLOBIN 33.1 pg (27.0-33.4); MEAN CORPUSCULAR HGB CONC 33.3 g/dL (32.0-36.0); MEAN CORPUSCULAR VOLUME 99 fl (80-97); PLATELET COUNT 106 10^3/uL (150-450); RED BLOOD COUNT 2.36 10^6/uL (3.72-5.28); RED CELL DISTRIBUTION WIDTH 24.9 % (11.5-14.0); WHITE BLOOD COUNT 6.1 10^3/uL (4.0-10.5)
[2019-06-13 12:59] LABS: INTERNATIONAL RATION (INR) 1.24; PROTHROMBIN TIME 15.7 SEC (11.4-15.4)
[2019-06-13 13:10] LABS: ALBUMIN 3.4 g/dL (3.5-5.0); ALKALINE PHOSPHATASE 338 U/L (38-126); ANION GAP 11 (5-19); ASPARTATE AMINO TRANSFERASE 70 U/L (14-36); BILIRUBIN,DIRECT 0.8 mg/dL (0.0-0.4); BILIRUBIN,TOTAL 0.9 mg/dL (0.2-1.3); BLOOD UREA NITROGEN 12 mg/dL (7-20); CALCIUM 8.4 mg/dL (8.4-10.2); CARBON DIOXIDE 31 mmol/L (22-30); CHLORIDE 97 mmol/L (98-107); CREATINE KINASE 71 U/L (30-135); GLUCOSE 100 mg/dL (75-110); POTASSIUM 3.3 mmol/L (3.6-5.0); TOTAL PROTEIN 7.8 g/dL (6.3-8.2)
[2019-06-13 13:17] LABS: HEMOGLOBIN 7.8 g/dL (12.0-15.5)
[2019-06-13 13:42] LABS: ABSOLUTE LYMPHOCYTES# (MANUAL) 1.9 10^3/uL (0.5-4.7); ABSOLUTE MONOCYTES # (MANUAL) 0.4 10^3/uL (0.1-1.4); BASOPHILS % (MANUAL) 0 % (0-2); EOSINOPHILS % (MANUAL) 0 % (0-6); LYMPHOCYTES % (MANUAL) 31 % (13-45); MONOCYTES % (MANUAL) 7 % (3-13); NUCLEATED RED BLOOD CELLS 8 /100 WBC (0); SEGMENTED NEUTROPHILS % (MAN) 62 % (42-78); TOTAL CELLS COUNTED 100
[2019-06-13 13:45] LABS: ANISOCYTOSIS 3+; TARGET CELLS 1+
[2019-06-13 13:46] LABS: POIKILOCYTOSIS 1+; POLYCHROMASIA SLIGHT; SCHISTOCYTES SLIGHT
[2019-06-13 13:47] LABS: OVALOCYTES 1+; PLATELET COMMENT DECREASED; PLATELET LARGE PRESENT
[2019-06-13] MEDS ORDERED: NORMAL SALINE 250 ML IV PRN (14:22)
[2019-06-13] MEDS: ALBUMIN HUMAN 12.5 GM/50 ML RTUINJ IV SCH ×2 (14:54→16:47)
--- NOTE | 2019-06-13 17:06 | RADIOLOGY REPORT (SQ) ---
EXAM DESCRIPTION: U/S ABD PARACENTESIS COMPLETED DATE/TIME: 06/13/2019 4:34 pm REASON FOR STUDY: ascites COMPARISON None. LIMITATIONS: None. PROCEDURE: The procedure, risks, benefits, and alternatives were discussed with the patient and the patient's family who then gave written consent. The left lower quadrant was then marked utilizing s onographic guidance and a time-out was performed to document correct marking verification. The area around the selected percutaneous access site was then prepped and draped with 2% chlorhexidi ne utilizing standard sterile technique. After that, the selected access site was infiltrated with 5 ml of 1% lidocaine. A 5 Vietnamese [id number]-N-Yvhdqycp catheter was then introduced into the fluid-filled p eritoneal cavity and the fluid was aspirated. After the fluid was aspirated, the catheter was removed and the entry site was covered with a sterile bandage. No immediate complications were noted. Volume of Fluid: 4000 mL. Quality of the Fluid: Clear emily colored. Was the fluid collected for analysis? No. Images acquired during the procedure were submitted to PACS. The patient tolerated the procedure with local anesthesia. At the end of the procedure the patient's condition was unchanged from the preprocedural baseline. Documentation of qjzj-in-zavy time the proceduralist spent monitoring the patient: 15 minutes. IMPRESSION: Successful ultrasound-guided paracentesis. COMMENT: Patient medication list reviewed: Yes- Quality ID# [id number]:Eligible professional attests to doc umenting in the medical record they obtained, updated, or reviewed the patient's current medications. TECHNICAL DOCUMENTATION: JOB ID: [id number] [employer]- All Rights Reserved Reading location - IP/workstation name: [email or web address]
--- NOTE | 2019-06-13 17:42 | EKG REPORT ---
SEVERITY:- ABNORMAL ECG - VENTRICULAR-PACED COMPLEXES INCOMPLETE RIGHT BUNDLE BRANCH BLOCK NONSPECIFIC T ABNORMALITIES,ANTEROLATERAL LEADS : Confirmed by: Patrick Blunt MD 13-Jun-2019 17:42:18
[2019-06-13 19:56] LABS: FLUID APPEARANCE CLEAR; FLUID COLOR YELLOW; FLUID SOURCE ASCITES; FLUID TYPE PERITONEAL; FLUID VISCOSITY LIQUID
[2019-06-13 22:45] VITALS: BP 121/72
[2019-06-16 14:48] LABS: PATH REVIEW PATHOLOGIST REVIEWED
== END 2019-06-13 22:51 | disposition home or self-care (01) ==
LOC: ER 10:19
DX: I12.0 Hypertensive chronic kidney disease with stage 5 chronic kidney disease or end stage renal disease (principal); N18.5 Chronic kidney disease, stage 5; J44.0 Chronic obstructive pulmonary disease with (acute) lower respiratory infection; I95.9 Hypotension, unspecified; D64.9 Anemia, unspecified; F41.9 Anxiety disorder, unspecified; R18.8 Other ascites; R07.9 Chest pain, unspecified; R42 Dizziness and giddiness; F17.210 Nicotine dependence, cigarettes, uncomplicated; I25.10 Atherosclerotic heart disease of native coronary artery without angina pectoris; I25.2 Old myocardial infarction
CPT/HCPCS: 93005; 94640 ×2; 99291; 96360; 96361; 86900; 86901; 36415; 87040; 87205; 87070; 36430; 86850; 82550; 83735; 85025; 85610; 89050; 87075; 80053; 84484; 86920; 71046; 49083; 93010; P9016; P9047; A9270 ×2; J7030; J7050; J7620

== ENCOUNTER → 2019-07-24 | Outpatient (CLI) | payer MEDICARE ==
[2019-07-24 12:52] LABS: HEMATOCRIT 23.1 % (36.0-47.0); MEAN CORPUSCULAR HEMOGLOBIN 34.3 pg (27.0-33.4); MEAN CORPUSCULAR HGB CONC 33.7 g/dL (32.0-36.0); MEAN CORPUSCULAR VOLUME 102 fl (80-97); PLATELET COUNT 117 10^3/uL (150-450); RED BLOOD COUNT 2.26 10^6/uL (3.72-5.28); RED CELL DISTRIBUTION WIDTH 23.7 % (11.5-14.0); WHITE BLOOD COUNT 6.3 10^3/uL (4.0-10.5)
[2019-07-24 13:16] LABS: ALBUMIN 3.3 g/dL (3.5-5.0); ALKALINE PHOSPHATASE 337 U/L (38-126); ANION GAP 10 (5-19); ASPARTATE AMINO TRANSFERASE 72 U/L (14-36); BILIRUBIN,DIRECT 0.8 mg/dL (0.0-0.4); BILIRUBIN,TOTAL 1.2 mg/dL (0.2-1.3); BLOOD UREA NITROGEN 19 mg/dL (7-20); CALCIUM 8.5 mg/dL (8.4-10.2); CARBON DIOXIDE 30 mmol/L (22-30); CHLORIDE 99 mmol/L (98-107); CHOLESTEROL 148.43 mg/dL (0-200); GLUCOSE 99 mg/dL (75-110); POTASSIUM 3.4 mmol/L (3.6-5.0); TOTAL PROTEIN 7.7 g/dL (6.3-8.2); TRIGLYCERIDES 122 mg/dL (<150)
[2019-07-24 13:27] LABS: DIRECT LDL 69 mg/dL (<100)
[2019-07-24 14:00] LABS: ABSOLUTE LYMPHOCYTES# (MANUAL) 1.9 10^3/uL (0.5-4.7); ABSOLUTE MONOCYTES # (MANUAL) 0.8 10^3/uL (0.1-1.4); BASOPHILS % (MANUAL) 0 % (0-2); EOSINOPHILS % (MANUAL) 3 % (0-6); LYMPHOCYTES % (MANUAL) 24 % (13-45); MONOCYTES % (MANUAL) 12 % (3-13); SEGMENTED NEUTROPHILS % (MAN) 55 % (42-78); TOTAL CELLS COUNTED 100
[2019-07-24 14:07] LABS: ANISOCYTOSIS 3+; POIKILOCYTOSIS SLIGHT; POLYCHROMASIA 1+; SCHISTOCYTES SLIGHT; TARGET CELLS SLIGHT; TEAR DROP CELLS SLIGHT
[2019-07-24 14:08] LABS: HOWELL-JOLLY BODIES PRESENT; PAPPENHEIMER BODIES PRESENT; PLATELET COMMENT DECREASED; PLATELET LARGE PRESENT
[2019-07-24 14:10] LABS: NUCLEATED RED BLOOD CELLS 13 /100 WBC (0)
[2019-07-24 14:11] LABS: HEMOGLOBIN 7.8 g/dL (12.0-15.5)
[2019-07-25 09:27] LABS: PATH REVIEW PATHOLOGIST REVIEWED
[2019-07-25 11:37] LABS: % CD 4 POS LYMPH 15.2 % (30.8-58.5); ABSOLUTE CD 4 HELPER 395 /uL (359-1519); CD BASOPHILS 0 % (Not Estab.); CD EOSINOPHILS 2 % (Not Estab.); CD MONOCYTES 14 % (Not Estab.); EOSINOPHILS (ABSOLUTE) 0.2 x10E3/uL (0.0-0.4); HEMOGLOBIN 7.7 g/dL (11.1-15.9); IMMATURE GRANULOCYTES 1 % (Not Estab.); IMMATURE GRANULOCYTES (ABS) 0.1 x10E3/uL (0.0-0.1); LYMPHS(ABSOLUTE) 2.6 x10E3/uL (0.7-3.1); MCHC 32.5 g/dL (31.5-35.7); MCV 99 fL (79-97); PLATELETS 137 x10E3/uL (150-450); RDW 18.9 % (11.7-15.4)
[2019-07-25 13:18] LABS: CD NEUTROPHILS 47 % (Not Estab.); WBC 7.2 x10E3/uL (3.4-10.8)
== END ==
LOC: LAB 12:17
PROVIDERS: ATTEND Nurse Practitioner
DX: B20 Human immunodeficiency virus [HIV] disease (principal); Z11.3 Encounter for screening for infections with a predominantly sexual mode of transmission; Z79.899 Other long term (current) drug therapy
CPT/HCPCS: 36415; 80053; 80061; 85025; 86361; 86592

== ENCOUNTER 2019-07-25 15:12 | Emergency (ER) | payer MEDICARE ==
[2019-07-25] MEDS ORDERED: PANTOPRAZOLE SODIUM 40 MG VIAL IV ONE (15:51)
--- NOTE | 2019-07-25 15:54 | ER Document Report ---
ED Medical Screen (RME) - General Chief Complaint: Bloody Stools Stated Complaint: ABDOMINAL PAIN Time Seen by Provider: 07/25/19 15:46 Notes: HPI: 58-year-old female who is a dialysis patient of Dr. Bruce Johnston who gets dialysis Sunday and did have dialysis today presenting for lower abdominal pain with blood in her stool over the last several days. Patient states that she was told after having lab work done yesterday that she would need to come in for a blood transfusion. Patient states she has had GI bleed issues previously. States she does not take any medications to help prevent GI bleeds or for her stomach. Complains of shortness of breath states this is not abnormal for her. I have greeted and performed a rapid initial assessment of this patient. A comprehensive ED assessment and evaluation of the patient, analysis of test results and completion of the medical decision making process will be conducted by additional ED providers PHYSICAL EXAMINATION: GENERAL: Well-appearing, well-nourished and in no acute distress. HEAD: Atraumatic, normocephalic. EYES: sclera anicteric, conjunctiva are normal. ENT: Moist mucous membranes. NECK: Normal range of motion LUNGS: Normal work of breathing, decreased in all lung cat HEART: 2+ radial pulses bilaterally, irregularly irregular, with 1/6 systolic murmur ABD: limited by positioning for exam in triage. Epigastric tenderness and bilateral lower abdominal tenderness on exam. Rectal exam deferred in triage EXTREMITIES: no pitting or edema. No cyanosis. NEUROLOGICAL: No focal neurological deficits. Moves all extremities spontaneously and on command. PSYCH: Normal mood, normal affect. SKIN: Warm, Dry, normal turgor, no rashes or lesions noted. TRAVEL OUTSIDE OF THE [place] IN LAST 30 DAYS: No - Related Data Allergies/Adverse Reactions: Penicillins Allergy (Severe, Verified 06/13/19 10:38) Rash adhesive Allergy (Verified 06/13/19 10:38) Rash cinacalcet [From Sensipar] Allergy (Verified 06/13/19 10:38) cough seafood Allergy (Uncoded 06/13/19 10:38) Home Medications: Zolpidem, Clonidine, Juluca, Pantaprazole, Carvedilol Past Medical History - Past Medical History Cardiac Medical History: Reports: Hx Coronary Artery Disease, Hx Heart Attack - 2008, 2014, Hx Hypercholesterolemia, Hx Hypertension, Hx Heart Murmur Pulmonary Medical History: Reports: Hx Asthma, Hx COPD, Hx Pneumonia Denies: Hx Bronchitis, Hx Tuberculosis Neurological Medical History: Denies: Hx Cerebrovascular Accident, Hx Seizures Renal/ Medical History: Reports: Hx End Stage Renal Disease. Denies: Hx Peritoneal Dialysis GI Medical History: Musculoskeltal Medical History: Denies Hx Arthritis Psychiatric Medical History: Reports: Hx Depression Infectious Medical History: Reports: Hx HIV - 2005, followed at [facility] Past Surgical History: Reports: Hx Cardiac Surgery - pacemaker/defib, Hx Pacemaker - With AICD, Other - PTCA at [place]. Denies: Hx Hysterectomy - Immunizations Hx Diphtheria, Pertussis, Tetanus Vaccination: Yes Physical Exam - Vital signs Vitals: Temp Pulse Resp BP Pulse Ox 97.5 F 93 20 99/54 L 99 07/25/19 15:38 07/25/19 15:38 07/25/19 15:38 07/25/19 15:38 07/25/19 15:38 Course - Vital Signs Vital signs: Temp Pulse Resp BP Pulse Ox 97.5 F 93 20 99/54 L 99 07/25/19 15:39 07/25/19 15:39 07/25/19 15:39 07/25/19 15:39 07/25/19 15:39
[2019-07-25 16:35] LABS: HEMATOCRIT 25.6 % (36.0-47.0); HEMOGLOBIN 8.6 g/dL (12.0-15.5); MEAN CORPUSCULAR HEMOGLOBIN 34.1 pg (27.0-33.4); MEAN CORPUSCULAR HGB CONC 33.6 g/dL (32.0-36.0); MEAN CORPUSCULAR VOLUME 101 fl (80-97); PLATELET COUNT 132 10^3/uL (150-450); RED BLOOD COUNT 2.53 10^6/uL (3.72-5.28); RED CELL DISTRIBUTION WIDTH 23.3 % (11.5-14.0); WHITE BLOOD COUNT 5.4 10^3/uL (4.0-10.5)
[2019-07-25 16:45] LABS: INTERNATIONAL RATION (INR) 1.21; PROTHROMBIN TIME 15.4 SEC (11.4-15.4)
[2019-07-25 16:51] LABS: ALBUMIN 3.4 g/dL (3.5-5.0); ALKALINE PHOSPHATASE 361 U/L (38-126); ANION GAP 10 (5-19); ASPARTATE AMINO TRANSFERASE 76 U/L (14-36); BILIRUBIN,DIRECT 0.9 mg/dL (0.0-0.4); BILIRUBIN,TOTAL 1.2 mg/dL (0.2-1.3); BLOOD UREA NITROGEN 12 mg/dL (7-20); CALCIUM 8.3 mg/dL (8.4-10.2); CARBON DIOXIDE 30 mmol/L (22-30); CHLORIDE 99 mmol/L (98-107); GLUCOSE 70 mg/dL (75-110); POTASSIUM 3.1 mmol/L (3.6-5.0)
--- NOTE | 2019-07-25 16:58 | RADIOLOGY REPORT (SQ) ---
EXAM DESCRIPTION: CHEST 2 VIEWS COMPLETED DATE/TIME: 07/25/2019 4:38 pm REASON FOR STUDY: sob COMPARISON: 05/02/2019 EXAM PARAMETERS: NUMBER OF VIEWS: two views TECHNIQUE: Digital Frontal and Lateral radiographic views of the chest acquired. RADIATION DOSE: NA LIMITATIONS: none FINDINGS: LUNGS AND PLEURA: Small right pleural effusion and right lung base airspace disease may r epresent atelectasis/ infiltrate. The left lung is clear. No pneumothorax or pleural effusion. MEDIASTINUM AND HILAR STRUCTURES: No masses or contour abnormalities. HEART AND VASCULAR STRUCTURES: Generalized marked cardiomegaly, stable finding. Pulmonary vascular redistribution (cephalization). BONES: No acute findings. HARDWARE: Cardiac pacemaker, stable finding. OTHER: No other significant finding. IMPRESSION: 1. Small right pleural effusion and right lung base atelectasis/infiltrate, new finding since the prior study. 2. Marked generalized cardiomegaly, unchanged finding. TECHNICAL DOCUMENTATION: JOB ID: [id number] [employer]- All Rights Reserved Reading location - IP/workstation name: [email or web address]
[2019-07-25 17:01] LABS: ABSOLUTE LYMPHOCYTES# (MANUAL) 1.6 10^3/uL (0.5-4.7); ABSOLUTE MONOCYTES # (MANUAL) 0.3 10^3/uL (0.1-1.4); BASOPHILS % (MANUAL) 0 % (0-2); EOSINOPHILS % (MANUAL) 1 % (0-6); LYMPHOCYTES % (MANUAL) 30 % (13-45); METAMYELOCYTES % (MANUAL) 1 % (0-1); MONOCYTES % (MANUAL) 5 % (3-13); NUCLEATED RED BLOOD CELLS 17 /100 WBC (0); SEGMENTED NEUTROPHILS % (MAN) 63 % (42-78); TOTAL CELLS COUNTED 100
[2019-07-25 17:05] LABS: ANISOCYTOSIS 3+; OVALOCYTES SLIGHT; PLATELET COMMENT ADEQUATE; PLATELET LARGE PRESENT; POIKILOCYTOSIS 1+; POLYCHROMASIA 1+; TARGET CELLS 1+; TEAR DROP CELLS SLIGHT; TROPONIN I 0.036 ng/mL
--- NOTE | 2019-07-25 20:26 | ER Document Report ---
Entered by MARIBEL BUCHANAN SCRIBE 07/25/191921 Acting as scribe for:YASMANI LOWE IV, MD ED GI/ - General Chief Complaint: Bloody Stools Stated Complaint: ABDOMINAL PAIN Time Seen by Provider: 07/25/19 15:46 Primary Care Provider: THIAGO COLIN MD [Primary Care Provider] - 07/28/19 Information source: Patient, [facility] Records Notes: This 58 year old HIV+ female patient presents to the emergency department today with complaints of "needing to be tapped and some blood". Patient states that she gets her stomach "tapped and gets a pint of blood every month for the last x6 months". Patient states "they can't find where the blood is coming from". Patient repor issac to nursing staff earlier during this visit that she had dark colored blood in her stool today prior to dialysis but "now it is gone". Patient complains of generalized body aches and generalized weakness as well. Patient is an incredibly poor historian so history is limited. TRAVEL OUTSIDE OF THE [place] IN LAST 30 DAYS: No - Related Data Allergies/Adverse Reactions: Penicillins Allergy (Severe, Verified 06/13/19 10:38) Rash adhesive Allergy (Verified 06/13/19 10:38) Rash cinacalcet [From Sensipar] Allergy (Verified 06/13/19 10:38) cough seafood Allergy (Uncoded 06/13/19 10:38) Home Medications: Zolpidem, Clonidine, Juluca, Pantaprazole, Carvedilol Past Medical History - General Information source: Patient, [facility] Records - Social History Smoking Status: Smoker,Current Status Unk Frequency of alcohol use: None Drug Abuse: None Lives with: Family Family History: Reviewed & Not Pertinent, CAD Patient has suicidal ideation: No Patient has homicidal ideation: No - Past Medical History Cardiac Medical History: Reports: Hx Coronary Artery Disease, Hx Heart Attack - 2008, 2014, Hx Hypercholesterolemia, Hx Hypertension, Hx Heart Murmur Pulmonary Medical History: Reports: Hx Asthma, Hx COPD, Hx Pneumonia Renal/ Medical History: Reports: Hx End Stage Renal Disease GI Medical History: Musculoskeletal Medical History: Psychiatric Medical History: Reports: Hx Depression Infectious Medical History: Reports: Hx HIV - 2005, followed at [facility] Past Surgical History: Reports: Hx Pacemaker - With AICD, Other - PTCA at [place] - Immunizations Hx Diphtheria, Pertussis, Tetanus Vaccination: Yes Hx Pneumococcal Vaccination: 02/18/14 Review of Systems - Review of Systems Constitutional: See HPI, Weakness EENT: No symptoms reported Cardiovascular: No symptoms reported Respiratory: No symptoms reported Gastrointestinal: See HPI, Rectal bleeding Genitourinary: No symptoms reported Female Genitourinary: No symptoms reported Musculoskeletal: See HPI, Muscle pain Skin: No symptoms reported Hematologic/Lymphatic: No symptoms reported Neurological/Psychological: No symptoms reported -: Yes All other systems reviewed and negative Physical Exam - Vital signs Vitals: Temp Pulse Resp BP Pulse Ox 97.5 F 93 20 99/54 L 99 07/25/19 15:38 07/25/19 15:38 07/25/19 15:38 07/25/19 15:38 07/25/19 15:38 - Notes Notes: Physical Exam: General: Alert, appears at baseline per [facility] records. HEENT: Normocephalic. Atraumatic. PERRL. Extraocular movements intact. Oropharynx clear. Neck: Supple. Non-tender. Respiratory: No respiratory distress. Clear and equal breath sounds bilaterally. Cardiovascular: Regular rate and rhythm. Abdominal: Normal Inspection. Non-tender. No distension. Normal Bowel Sounds. Rectal: Patient refusing rectal exam Back: No gross abnormalities. Extremities: Moves all four extremities. Upper extremities: Normal inspection. Normal ROM. Lower extremities: Normal inspection. No edema. Normal ROM. Neurological: Normal cognition. AAOx4. Normal speech. Psychological: Normal affect. Normal Mood. Skin: Warm. Dry. Normal color. Course - Re-evaluation Re-evalutation: 07/25/19 20:06 Patient states the reason she decided to come to the emergency department today was because she "has not been tapped in a while". Patient also states that she is got anemia of unknown cause and usually "gets a pint of blood". Patient was informed of ED MSE results, including the fact that her hemoglobin is improved compared to her last hemoglobin level. Patient abdominal exam is unremarkable for distention or tympany. This MD tried, as well as the patient's nurse, to explain indications for paracentesis and blood transfusion. Given the patient's chief complaint of reportedly having blood in her stool, it was recommended to the patient that she have a Hemoccult exam done. Patient refused this and stated "if you not going to do anything I am going to go home." Emergency signs and symptoms, reasons to return to the emergency department discussed with patient. - Vital Signs Vital signs: Temp Pulse Resp BP Pulse Ox 97.5 F 93 17 111/65 97 07/25/19 15:39 07/25/19 15:39 07/25/19 17:41 07/25/19 17:41 07/25/19 17:41 - Laboratory Result Diagrams: 07/25/19 16:00 07/25/19 16:00 Laboratory results interpreted by me: 07/25/19 07/25/19 07/25/19 16:00 16:00 16:00 RBC 2.53 L Hgb 8.6 L Hct 25.6 L MCV 101 H MCH 34.1 H RDW 23.3 H Plt Count 132 L Potassium 3.1 L Creatinine 2.96 H Est GFR ( Amer) 20 L Est GFR (MDRD) Non-Af 16 L Glucose 70 L Calcium 8.3 L Direct Bilirubin 0.9 H AST 76 H Alkaline Phosphatase 361 H NT-Pro-B Natriuret Pep 29869 H Albumin 3.4 L - EKG Interpretation by Me Additional EKG results interpreted by me: 07/25/19 20:09 EKG obtained on 07/25/2019 at 1823 hrs. was interpreted by this MD. Findings: Patient has a ventricular paced rhythm with a rate of 75. There are no obvious patterns of ST segment elevation or depression to suggest acute myocardial ischemia or infarct. Impression ventricular paced EKG with nonspecific ST segments. Discharge - Discharge Clinical Impression: Patient refused evaluation or treatment Abdominal pain Qualifiers: Abdominal location: unspecified location Qualified Code(s): R10.9 - Unspecified abdominal pain Disposition: HOME, SELF-CARE Instructions: Abdominal Pain ([facility]) Additional Instructions: Return to the Emergency Department without delay if any worse. Referrals: THIAGO COLIN MD [Primary Care Provider] - 07/28/19 I personally performed the services described in the documentation, reviewed and edited the documentation which was dictated to the scribe in my presence, and it accurately records my words and actions.
[2019-07-25 20:29] VITALS: BP 106/60
--- NOTE | 2019-07-25 22:16 | EKG REPORT ---
SEVERITY:- ABNORMAL ECG - VENTRICULAR-PACED COMPLEXES NONSPECIFIC INTRAVENTRICULAR CONDUCTION DELAY OLD ANTERIOR AK DIFFUSE NONSPECIFIC ST-T CHANGES LOW VOLTAGE EKG : Confirmed by: Patrick Blunt MD 25-Jul-2019 22:16:08
== END 2019-07-25 20:40 | disposition home or self-care (01) ==
LOC: ER 15:12
DX: R10.9 Unspecified abdominal pain (principal); R19.5 Other fecal abnormalities; M79.10 Myalgia, unspecified site; R53.1 Weakness; Z88.0 Allergy status to penicillin; Z88.8 Allergy status to other drugs, medicaments and biological substances; Z79.899 Other long term (current) drug therapy; F17.200 Nicotine dependence, unspecified, uncomplicated; I25.10 Atherosclerotic heart disease of native coronary artery without angina pectoris; I25.2 Old myocardial infarction; I10 Essential (primary) hypertension; J44.9 Chronic obstructive pulmonary disease, unspecified
CPT/HCPCS: 93005; 99284; 96374; 86900; 86901; 36415; 86850; 85025; 85610; 80053; 84484; 83880; 71046; 93010; C9113

== ENCOUNTER 2019-08-12 10:55 | Emergency (ER) | payer MEDICARE ==
--- NOTE | 2019-08-12 11:42 | ER Document Report ---
ED General - General Chief Complaint: Low Blood Pressure Stated Complaint: BLOOD PRESSURE PROBLEM Primary Care Provider: THIAGO COLIN MD [Primary Care Provider] - Follow up as needed Notes: Patient is a 58-year-old -[place] female with a history of HIV and chronic kidney disease on hemodialysis on Sunday and Sunday with Dr. Johnston/Dr. Casey who presents to the emergency department sent by her "eye doctor" after an episode of low blood pressure. The patient reports that she has had dizzy spells all week. She states that while at her eye doctor she had what she describes as a fainting episode. She states they took her blood pressure noticed it to be "in the 70s". She states here ongoing complaints of vague abdominal discomfort and distention as well as intermittent episodes of dizziness. She denies any chest pain or shortness of breath. She had dialysis yesterday. She reports that she was sent here on Sunday of last week for a transfusion but her reports show an improved hemoglobin here in the emergency department. She states she has been getting "tapped" for the past 6 months every 2 weeks she reports some with here in the hospital. She is unsure who has performed or ordered the "tap". She states this is in relation to bleeding in the abdomen. She denies any lower extremity pain or swelling, hemoptysis, melena, hematochezia or hematemesis. TRAVEL OUTSIDE OF THE [place] IN LAST 30 DAYS: No - Related Data Allergies/Adverse Reactions: Penicillins Allergy (Severe, Verified 06/13/19 10:38) Rash adhesive Allergy (Verified 06/13/19 10:38) Rash cinacalcet [From Sensipar] Allergy (Verified 06/13/19 10:38) cough seafood Allergy (Uncoded 06/13/19 10:38) Home Medications: clonidine Past Medical History - Social History Smoking Status: Current Every Day Smoker Family History: Reviewed & Not Pertinent, CAD Patient has suicidal ideation: No Patient has homicidal ideation: No - Past Medical History Cardiac Medical History: Reports: Hx Coronary Artery Disease, Hx Heart Attack - 2008, 2014, Hx Hypercholesterolemia, Hx Hypertension, Hx Heart Murmur Pulmonary Medical History: Reports: Hx Asthma, Hx COPD, Hx Pneumonia Denies: Hx Bronchitis, Hx Tuberculosis Neurological Medical History: Denies: Hx Cerebrovascular Accident, Hx Seizures Renal/ Medical History: Reports: Hx End Stage Renal Disease. Denies: Hx Peritoneal Dialysis GI Medical History: Musculoskeletal Medical History: Denies Hx Arthritis Psychiatric Medical History: Reports: Hx Depression Infectious Medical History: Reports: Hx HIV - 2005, followed at [facility] Past Surgical History: Reports: Hx Cardiac Surgery - pacemaker/defib, Hx Pacemaker - With AICD, Other - PTCA at [place]. Denies: Hx Hysterectomy - Immunizations Hx Diphtheria, Pertussis, Tetanus Vaccination: Yes Hx Pneumococcal Vaccination: 02/18/14 Review of Systems - Review of Systems Gastrointestinal: Abdomen distended, Abdominal pain Neurological/Psychological: Lost consciousness, Other - Dizziness -: Yes All other systems reviewed and negative Physical Exam - Vital signs Vitals: Temp BP 98.1 F 101/60 08/12/19 11:09 08/12/19 11:09 - General General appearance: Appears well, Alert In distress: None - Respiratory Respiratory status: No respiratory distress Chest status: Nontender Breath sounds: Normal Chest palpation: Normal - Cardiovascular Rhythm: Regular Heart sounds: Normal auscultation - Abdominal Inspection: Normal Distension: Distended. No: Fluid wave Bowel sounds: Normal Tenderness: Tender - Mild tenderness diffusely to palpation. Organomegaly: Hepatomegaly, Splenomegaly - Extremities General upper extremity: Normal inspection, Nontender, Normal ROM. No: Edema General lower extremity: Normal inspection, Nontender, Normal ROM. No: Edema - Neurological Neuro grossly intact: Yes Cognition: Normal Orientation: AAOx4 Cedar Coma Scale Eye Opening: Spontaneous Jesenia Coma Scale Verbal: Oriented Jes[place] Coma Scale Motor: Obeys Commands Jesenia Coma Scale Total: 15 Speech: Normal - Psychological Associated symptoms: Normal affect, Normal mood - Skin Skin Temperature: Warm Skin Moisture: Dry Skin Color: Normal Course - Re-evaluation Re-evalutation: 08/12/19 13:21 Spoke with the patient's tree topper, Dr. Vasquez at this time who recom mended transfer to [facility] for significant pericardial effusion and early tamponade physiology. He recommended IV fluids. 08/12/19 13:23 Spoke with the transfer center at [facility] at this time, they are currently in the middle of a code stroke. I discussed the case with the transfer center who has taken down notes and will call me back as soon as possible for further transfer care. 08/12/19 14:[address] Amos at [facility] at this time. She is accepted the patient for transfer. 08/12/19 14:06 Patient is stable at this time. She is mildly hypotensive but is relieved 500 cc of normal saline. Her head is in Trendelenburg. Her hypotension, syncopal episodes and dizziness combined with what appears to be a worsening pericardial effusion on CT per radiologist is worrisome for worsening effusion and early tamponade as discussed with Dr. Vasquez. He recommended a 500 cc bolus and transfer to [facility]. This has been initiated, accepted and patient is julio c iting transfer in the emergency department. She is stable at this time. - Vital Signs Vital signs: Temp Pulse Resp BP Pulse Ox 98.1 F 16 102/78 98 08/12/19 11:09 08/12/19 12:33 08/12/19 12:37 08/12/19 12:33 - Laboratory Result Diagrams: 08/12/19 11:50 08/12/19 11:50 Laboratory results interpreted by me: 08/12/19 08/12/19 11:50 11:50 RBC 2.23 L Hgb 7.6 L Hct 22.8 L MCV 102 H MCH 34.1 H RDW 24.7 H Plt Count 102 L Monocytes % (Manual) 15 H Potassium 3.4 L Carbon Dioxide 31 H Creatinine 3.96 H Est GFR ( Amer) 14 L Est GFR (MDRD) Non-Af 12 L Direct Bilirubin 0.8 H AST 82 H Alkaline Phosphatase 323 H Albumin 3.0 L Lipase 416.8 H - EKG Interpretation by Me Additional EKG results interpreted by me: 08/12/19 14:05 A. fib at 77 bpm. Low voltage. Discharge - Discharge Clinical Impression: Pericardial effusion Condition: Serious Disposition: [facility] Referrals: THIAGO COLIN MD [Primary Care Provider] - Follow up as needed
[2019-08-12 12:08] LABS: HEMATOCRIT 22.8 % (36.0-47.0); MEAN CORPUSCULAR HEMOGLOBIN 34.1 pg (27.0-33.4); MEAN CORPUSCULAR HGB CONC 33.4 g/dL (32.0-36.0); MEAN CORPUSCULAR VOLUME 102 fl (80-97); RED BLOOD COUNT 2.23 10^6/uL (3.72-5.28); RED CELL DISTRIBUTION WIDTH 24.7 % (11.5-14.0); WHITE BLOOD COUNT 6.7 10^3/uL (4.0-10.5)
--- NOTE | 2019-08-12 12:15 | RADIOLOGY REPORT (SQ) ---
EXAM DESCRIPTION: CT HEAD WITHOUT COMPLETED DATE/TIME: 08/12/2019 12:03 pm REASON FOR STUDY: syncopal episode COMPARISON: 2019 TECHNIQUE: Axial images acquired through the brain without intravenous contrast. Images reviewed wi th bone, brain and subdural windows. Additional sagittal and coronal reconstructions were generated. Images stored on PACS. All CT scanners at this facility use dose modulation, iterative reconstruction, and/or weight based d osing when appropriate to reduce radiation dose to as low as reasonably achievable (ALARA). [facility]: Dose Right [facility]: CareDose [facility]: Dose Right [facility]: Teradose 4D [facility]: Smart Is[employer] RADIATION DOSE: CT Rad equipment meets quality standard of care and radiation dose reduction techniq ues were employed. CTDIvol: 53.2 mGy. DLP: 1044 mGy-cm. mGy. LIMITATIONS: None. FINDINGS: VENTRICLES: Normal size and contour. CEREBRUM: No masses. No hemorrhage. No midline shift. No evidence for acute infarction. Minimal pa tchy periventricular low densities as before. Consistent with chronic small vessel disease. CEREBELLUM: No masses. No hemorrhage. No alteration of density. No evidence for acute infarction. EXTRAAXIAL SPACES: No fluid collections. No masses. ORBITS AND GLOBE: No intra- or extraconal masses. Normal contour of globe without masses. CALVARIUM: No fracture. PARANASAL SINUSES: No fluid or mucosal thickening. SOFT TISSUES: No mass or hematoma. OTHER: No other significant finding. IMPRESSION: No acute or suspicious intracranial abnormality. EVIDENCE OF ACUTE STROKE: NO. COMMENT: Quality ID # [id number]: Final reports with documentation of one or more dose reduction techniques (e.g., Automated exposure control, adjustment of the mA and/or kV according to patient size, use of iterative reconstruction technique) TECHNICAL DOCUMENTATION: JOB ID: [id number] 2010 [employer]- All Rights Reserved Reading location - IP/workstation name: [email or web address] [email or web address]
[2019-08-12 12:19] LABS: ALKALINE PHOSPHATASE 323 U/L (38-126); ANION GAP 8 (5-19); ASPARTATE AMINO TRANSFERASE 82 U/L (14-36); BILIRUBIN,DIRECT 0.8 mg/dL (0.0-0.4); BILIRUBIN,TOTAL 1.1 mg/dL (0.2-1.3); BLOOD UREA NITROGEN 19 mg/dL (7-20); CALCIUM 8.8 mg/dL (8.4-10.2); CARBON DIOXIDE 31 mmol/L (22-30); CHLORIDE 101 mmol/L (98-107); CREATINE KINASE 70 U/L (30-135); GLUCOSE 92 mg/dL (75-110); POTASSIUM 3.4 mmol/L (3.6-5.0)
--- NOTE | 2019-08-12 12:20 | RADIOLOGY REPORT (SQ) ---
EXAM DESCRIPTION: CT ABD/PELVIS NO ORAL OR IV COMPLETED DATE/TIME: 08/12/2019 12:03 pm REASON FOR STUDY: abd pain COMPARISON: 04/09/2019 CT, ultrasound abdomen earlier this year TECHNIQUE: CT scan of the abdomen and pelvis performed without intravenous or oral contrast. Images reviewed with lung, soft tissue, and bone windows. Reconstructed coronal and sagittal MPR images revi ewed. All images stored on PACS. All CT scanners at this facility use dose modulation, iterative reconstruction, and/or weight based d osing when appropriate to reduce radiation dose to as low as reasonably achievable (ALARA). [facility]: Dose Right [facility]: CareDose [facility]: Dose Right [facility]: Teradose 4D [facility]: Smart Technologies RADIATION DOSE: CT Rad equipment meets quality standard of care and radiation dose reduction techniq ues were employed. CTDIvol: 14.4 mGy. DLP: 817 mGy-cm.mGy. LIMITATIONS: None. FINDINGS: LOWER CHEST: Chronic areas of basilar scar. Marked cardiomegaly. Sizable pericardial eff usion, chronic but potentially progressive. This looks relatively simple. Artifact related to pacer . NON-CONTRASTED LIVER, SPLEEN, ADRENALS: Enlarged lobular liver measures over 27 cm. Spleen relativel y unremarkable. No gross adrenal region mass. PANCREAS: No masses. No peripancreatic inflammatory changes. GALLBLADDER: Not seen. RIGHT KIDNEY AND URETER: Severe atrophy with staghorn calcification, chronic change. LEFT KIDNEY AND URETER: Superior atrophy. AORTA AND RETROPERITONEUM: Heavy atherosclerosis without suggestion of aneurysm. BOWEL AND PERITONEAL CAVITY: No fixed bowel obstruction detected. Large volume ascites throughout th e abdomen. This looks chronic. Fluid looks relatively simple. No abnormal gas collections. APPENDIX: Not seen. PELVIS, BLADDER, AND ABDOMINAL WALL:Pelvic fluid noted. Bladder difficult to see. No abdominal wall mass or hernia. BONES: Heterogeneous increased density throughout the bones, likely related to renal osteodystrophy. This is chronic. OTHER: No other significant finding. IMPRESSION: 1. Compared to study from last year, pericardial effusion looks larger. 2. Chronic ascites and hepatomegaly and splenomegaly consistent with cirrhosis and portal hypertensio n. 3. Other chronic changes as above. There is renal atrophy and evidence of renal osteodystrophy. 4. No acute process otherwise identified. No evidence of bowel obstruction. TECHNICAL DOCUMENTATION: JOB ID: [id number] Quality ID # [id number]: Final reports with documentation of one or more dose reduction techniques (e.g., Au tomated exposure control, adjustment of the mA and/or kV according to patient size, use of iterative reconstruction technique) 2010 [employer]- All Rights Reserved Reading location - IP/workstation name: [email or web address]
--- NOTE | 2019-08-12 12:24 | RADIOLOGY REPORT (SQ) ---
EXAM DESCRIPTION: CHEST 2 VIEWS COMPLETED DATE/TIME: 08/12/2019 12:07 pm REASON FOR STUDY: syncopal episode COMPARISON: 07/25/2019 TECHNIQUE: Frontal and lateral radiographic views of the chest acquired. NUMBER OF VIEWS: Two view. LIMITATIONS: None. FINDINGS: LUNGS AND PLEURA: Hazy edema. Trace right pleural fluid. No change in mild right basilar volume loss. No pneumothorax. MEDIASTINUM AND HILAR STRUCTURES: Stable contours. HEART AND VASCULAR STRUCTURES: Cardiomegaly. BONES: No acute findings. HARDWARE: None in the chest. OTHER: No other significant finding. IMPRESSION: 1. Mild CHF, similar to prior. TECHNICAL DOCUMENTATION: JOB ID: [id number] 2010 [employer]- All Rights Reserved Reading location - IP/workstation name: [email or web address]
--- NOTE | 2019-08-12 12:33 | EKG REPORT ---
SEVERITY:- ABNORMAL ECG - ATRIAL FIBRILLATION CONSIDER ANTERIOR INFARCT NONSPECIFIC T ABNORMALITIES, DIFFUSE LEADS : Confirmed by: Patrick Blunt MD 12-Aug-2019 12:32:22
[2019-08-12 12:46] LABS: HEMOGLOBIN 7.6 g/dL (12.0-15.5)
[2019-08-12 12:51] LABS: PLATELET COUNT 102 10^3/uL (150-450)
[2019-08-12 12:53] LABS: ABSOLUTE LYMPHOCYTES# (MANUAL) 1.6 10^3/uL (0.5-4.7); ANISOCYTOSIS 3+; BASOPHILS % (MANUAL) 0 % (0-2); BURR CELLS SLIGHT; EOSINOPHILS % (MANUAL) 0 % (0-6); HYPOCHROMASIA SLIGHT; LYMPHOCYTES % (MANUAL) 24 % (13-45); MONOCYTES % (MANUAL) 15 % (3-13); NUCLEATED RED BLOOD CELLS 9 /100 WBC (0); OVALOCYTES SLIGHT; POLYCHROMASIA SLIGHT; SEGMENTED NEUTROPHILS % (MAN) 61 % (42-78); STOMATOCYTES SLIGHT; TEAR DROP CELLS SLIGHT; TOTAL CELLS COUNTED 100
[2019-08-12 12:54] LABS: PLATELET CLUMPS PRESENT; PLATELET COMMENT DECREASED; PLATELET LARGE PRESENT
[2019-08-12] MEDS ORDERED: NORMAL SALINE 500 ML IV ONE (13:08)
[2019-08-12 14:11] LABS: INTERNATIONAL RATION (INR) 1.27
[2019-08-12 14:12] LABS: PARTIAL THROMBOPLASTIN TIME 40.8 SEC (23.5-35.8)
[2019-08-12] MEDS ORDERED: OXYCODONE-ACETAMINOPHEN 5-325 MG TABLET PO ONE (17:52)
[2019-08-12] MEDS ORDERED: NICOTINE 14 MG/24 HR PATCH.TD24 TD ONE (18:43)
[2019-08-12 19:10] VITALS: BP 106/65
== END 2019-08-12 19:44 | disposition short-term general hospital (02) ==
LOC: ER 10:55
DX: I31.3 Pericardial effusion (noninflammatory) (principal); M54.9 Dorsalgia, unspecified; G89.29 Other chronic pain; R42 Dizziness and giddiness; I95.9 Hypotension, unspecified; R10.9 Unspecified abdominal pain; R14.0 Abdominal distension (gaseous); Z88.0 Allergy status to penicillin; Z88.8 Allergy status to other drugs, medicaments and biological substances; F17.200 Nicotine dependence, unspecified, uncomplicated; I25.10 Atherosclerotic heart disease of native coronary artery without angina pectoris; I25.2 Old myocardial infarction; I10 Essential (primary) hypertension; J44.9 Chronic obstructive pulmonary disease, unspecified
CPT/HCPCS: 93005; 99285; 96360; 36415; 82550; 83690; 85025; 85610; 85730; 80053; 84484; 71046; 70450; 74176; 93010; A9270 ×2; J7040

== ENCOUNTER 2019-09-02 07:50 | Day surgery (SDC) | payer MEDICARE ==
[2019-09-02 08:57] LABS: HEMATOCRIT 24.7 % (36.0-47.0); HEMOGLOBIN 8.5 g/dL (12.0-15.5); MEAN CORPUSCULAR HEMOGLOBIN 34.1 pg (27.0-33.4); MEAN CORPUSCULAR HGB CONC 34.3 g/dL (32.0-36.0); MEAN CORPUSCULAR VOLUME 99 fl (80-97); PLATELET COUNT 107 10^3/uL (150-450); RED BLOOD COUNT 2.48 10^6/uL (3.72-5.28); RED CELL DISTRIBUTION WIDTH 23.8 % (11.5-14.0); WHITE BLOOD COUNT 6.3 10^3/uL (4.0-10.5)
[2019-09-02 09:14] LABS: INTERNATIONAL RATION (INR) 1.28
[2019-09-02 09:18] LABS: BLOOD UREA NITROGEN 15 mg/dL (7-20); PARTIAL THROMBOPLASTIN TIME 41.1 SEC (23.5-35.8)
[2019-09-02] MEDS ORDERED: ALBUMIN HUMAN 50 GM/200 ML RTUINJ IV PRN (10:40)
--- NOTE | 2019-09-02 11:15 | RADIOLOGY REPORT (SQ) ---
EXAM DESCRIPTION: U/S ABD PARACENTESIS IMAGES COMPLETED DATE/TIME: 09/02/2019 11:00 am REASON FOR STUDY: OTHER ASCITES COMPARISON 06/13/2019 LIMITATIONS: None. PROCEDURE: After obtaining informed consent, the patient was brought to the ultrasound suite. The p rocedure was performed with the patient on a gurney. Ultrasound was used to identify a prominent poc ket of ascites in the left lower quadrant. An appropriate access site was selected. The patient was prepped and draped in usual sterile fashion. The access site was anesthetized with 10 mL 1% lidoca ine. A Uxxm-L-Mgruaral needle was advanced into the fluid. After aspiration of fluid the needle, th e catheter was advanced off the needle into the fluid. A total of 4,000 mL of clear, straw-colored f luid was removed. The patient tolerated the procedure well left the department in satisfactory condit ion. IMPRESSION: Successful ultrasound-guided paracentesis COMMENT: Patient medication list reviewed: Yes- Quality ID# [id number]:Eligible professional attests to doc umenting in the medical record they obtained, updated, or reviewed the patient's current medications. TECHNICAL DOCUMENTATION: JOB ID: [id number] 2010 [employer]- All Rights Reserved Reading location - IP/workstation name: [email or web address]
[2019-09-02 13:14] VITALS: BP 101/60
== END 2019-09-02 13:35 | disposition home or self-care (01) ==
LOC: RAD 07:50
PROVIDERS: ATTEND Internal Medicine Gastroenterology
DX: R18.8 Other ascites (principal); K74.60 Unspecified cirrhosis of liver; B18.1 Chronic viral hepatitis B without delta-agent; I13.11 Hypertensive heart and chronic kidney disease without heart failure, with stage 5 chronic kidney disease, or end stage renal disease; I43 Cardiomyopathy in diseases classified elsewhere; N18.6 End stage renal disease; Z99.2 Dependence on renal dialysis; D63.1 Anemia in chronic kidney disease; J44.9 Chronic obstructive pulmonary disease, unspecified; E78.00 Pure hypercholesterolemia, unspecified; I25.2 Old myocardial infarction; F17.210 Nicotine dependence, cigarettes, uncomplicated; Z71.6 Tobacco abuse counseling; Z21 Asymptomatic human immunodeficiency virus [HIV] infection status; Z95.810 Presence of automatic (implantable) cardiac defibrillator; Z79.899 Other long term (current) drug therapy; Z79.82 Long term (current) use of aspirin; Z79.891 Long term (current) use of opiate analgesic; Z88.0 Allergy status to penicillin; Z91.013 Allergy to seafood; Z91.048 Other nonmedicinal substance allergy status; Z88.8 Allergy status to other drugs, medicaments and biological substances; Z80.0 Family history of malignant neoplasm of digestive organs
CPT/HCPCS: 36415; 87205; 87070; 84520; 82565; 85610; 85730; 87075; 82042; 88162; 49083; P9047

== ENCOUNTER → 2019-09-10 | Emergency (ER) | payer MEDICARE ==
[~2019-09-10] MED LIST changes: -ACETAMINOPHEN 325 MG TABLET PO PRN; +ASPIRIN 81 MG TABLET, CHEWABLE PO ONE; -DIPHENHYDRAMINE HCL 25 MG CAPSULE PO PRN; -FUROSEMIDE INJ/PF 20 MG/2 ML SDV IV PRN; +NALOXONE HCL INJ/PF 0.4 MG/1 ML SDV IV ONE
--- NOTE | 2019-09-10 16:25 | ER Document Report ---
ED Medical Screen (RME) - General Chief Complaint: Altered Mental Status Stated Complaint: ALTERED MENTAL STATUS Time Seen by Provider: 09/10/19 16:16 Primary Care Provider: THIAGO COLIN MD [Primary Care Provider] - Follow up as needed Information source: Patient Notes: Patient presents complaining of generalized weakness for the past 2 to 3 weeks. Patient states that she has had some gait instability due to the weakness although has not had any falls at home. Patient was at home and did not seem of this alert as normal per family members although patient has not been confused. Patient complains of generalized abdominal discomfort. Patient with multiple comorbidities including A. fib, LA, cirrhosis, HIV, COPD and end-stage renal disease in which she dialyzes on Sunday and Sunday. I have greeted and performed a rapid initial assessment of this patient. A comprehensive ED assessment and evaluation of the patient, analysis of test results and completion of the medical decision making process will be conducted by additional ED providers. TRAVEL OUTSIDE OF THE [place] IN LAST 30 DAYS: No - Related Data Allergies/Adverse Reactions: Penicillins Allergy (Severe, Verified 06/13/19 10:38) Rash adhesive Allergy (Verified 06/13/19 10:38) Rash cinacalcet [From Sensipar] Allergy (Verified 06/13/19 10:38) cough seafood Allergy (Uncoded 06/13/19 10:38) Past Medical History - Past Medical History Cardiac Medical History: Reports: Hx Coronary Artery Disease, Hx Heart Attack - 2008, 2014, Hx Hypercholesterolemia, Hx Hypertension, Hx Heart Murmur Pulmonary Medical History: Reports: Hx Asthma, Hx COPD, Hx Pneumonia Denies: Hx Bronchitis, Hx Tuberculosis Neurological Medical History: Reports: Hx Cerebrovascular Accident. Denies: Hx Seizures Renal/ Medical History: Reports: Hx End Stage Renal Disease. Denies: Hx Peritoneal Dialysis GI Medical History: Musculoskeltal Medical History: Denies Hx Arthritis Psychiatric Medical History: Reports: Hx Depression Infectious Medical History: Reports: Hx HIV - 2005, followed at [facility] Past Surgical History: Reports: Hx Cardiac Surgery - pacemaker/defib, Hx Pacemaker - With AICD, Other - PTCA at [place]. Denies: Hx Hysterectomy - Immunizations Hx Diphtheria, Pertussis, Tetanus Vaccination: Yes Physical Exam - General General appearance: Alert, Other - Answers questions appropriately Notes: Abdomen distended, no abdominal tenderness Doctor's Discharge - Discharge Referrals: THIAGO COLIN MD [Primary Care Provider] - Follow up as needed
[2019-09-10 16:49] LABS: MEAN CORPUSCULAR HGB CONC 33.4 g/dL (32.0-36.0); MEAN CORPUSCULAR VOLUME 102 fl (80-97); PLATELET COUNT 140 10^3/uL (150-450); RED BLOOD COUNT 2.66 10^6/uL (3.72-5.28); RED CELL DISTRIBUTION WIDTH 23.8 % (11.5-14.0); WHITE BLOOD COUNT 6.1 10^3/uL (4.0-10.5)
[2019-09-10 17:09] LABS: ALBUMIN 3.2 g/dL (3.5-5.0); ALKALINE PHOSPHATASE 327 U/L (38-126); ANION GAP 8 (5-19); ASPARTATE AMINO TRANSFERASE 133 U/L (14-36); BILIRUBIN,DIRECT 1.1 mg/dL (0.0-0.4); BILIRUBIN,TOTAL 1.6 mg/dL (0.2-1.3); BLOOD UREA NITROGEN 8 mg/dL (7-20); CARBON DIOXIDE 30 mmol/L (22-30); CHLORIDE 97 mmol/L (98-107); GLUCOSE 88 mg/dL (75-110); POTASSIUM 3.7 mmol/L (3.6-5.0); TOTAL PROTEIN 7.3 g/dL (6.3-8.2)
[2019-09-10 17:10] LABS: ALCOHOL < 10 mg/dL (NONE DETECTED)
[2019-09-10 17:22] LABS: ABSOLUTE LYMPHOCYTES# (MANUAL) 1.1 10^3/uL (0.5-4.7); ABSOLUTE MONOCYTES # (MANUAL) 0.9 10^3/uL (0.1-1.4); BAND NEUTROPHILS % (MANUAL) 1 % (3-5); BASOPHILS % (MANUAL) 2 % (0-2); EOSINOPHILS % (MANUAL) 5 % (0-6); LYMPHOCYTES % (MANUAL) 18 % (13-45); MONOCYTES % (MANUAL) 14 % (3-13); NUCLEATED RED BLOOD CELLS 3 /100 WBC (0); SEGMENTED NEUTROPHILS % (MAN) 60 % (42-78); TOTAL CELLS COUNTED 100
[2019-09-10 17:24] LABS: ANISOCYTOSIS 3+; OVALOCYTES 1+; PLATELET COMMENT DECREASED; PLATELET GIANT PRESENT; TARGET CELLS 3+
--- NOTE | 2019-09-10 17:59 | ER Document Report ---
ED General - General Chief Complaint: Altered Mental Status Stated Complaint: ALTERED MENTAL STATUS Time Seen by Provider: 09/10/19 16:16 Primary Care Provider: THIAGO COLIN MD [Primary Care Provider] - Follow up as needed Mode of Arrival: Medic Information source: Patient TRAVEL OUTSIDE OF THE [place] IN LAST 30 DAYS: No - HPI Onset: Other - over the last several days patient has been somewhat confused Onset/Duration: Gradual Quality of pain: No pain Severity: Moderate Pain Level: Denies Associated symptoms: None Exacerbated by: Denies Relieved by: Denies Similar symptoms previously: No Recently seen / treated by doctor: Yes - patient had dialysis today Notes: 58 year old female with a history of Chronic Pain on Opiates, ESRD (dialyzed today), HTN, HLD, AFib, Cirrhosis, HIV, COPD here in the ER for 2-3 weeks of generalized weakness. The patient was sluggish on ER arrival with pinpoint pupils. She initially could not verbally respond to me so narcan was given which woke her up. Patient was somewhat confused upon waking. The patient also has had some mild abdominal tenderness at times over the last several weeks. According to nursing staff who spoke with the patient's case management rn, the patient has been confused at home and her house is not in order. There were apparently pill bottles all over the house and the house was not picked up. - Related Data Allergies/Adverse Reactions: Penicillins Allergy (Severe, Verified 06/13/19 10:38) Rash adhesive Allergy (Verified 06/13/19 10:38) Rash cinacalcet [From Sensipar] Allergy (Verified 06/13/19 10:38) cough seafood Allergy (Uncoded 06/13/19 10:38) Past Medical History - General Information source: Patient Cannot obtain history due to: Altered mental status - Social History Smoking Status: Current Every Day Smoker Frequency of alcohol use: None Drug Abuse: None Family History: Reviewed & Not Pertinent, CAD Patient has suicidal ideation: No Patient has homicidal ideation: No - Past Medical History Cardiac Medical History: Reports: Hx Coronary Artery Disease, Hx Heart Attack - 2008, 2014, Hx Hypercholesterolemia, Hx Hypertension, Hx Heart Murmur Pulmonary Medical History: Reports: Hx Asthma, Hx COPD, Hx Pneumonia Denies: Hx Bronchitis, Hx Tuberculosis Neurological Medical History: Reports: Hx Cerebrovascular Accident. Denies: Hx Seizures Renal/ Medical History: Reports: Hx End Stage Renal Disease. Denies: Hx Peritoneal Dialysis GI Medical History: Musculoskeletal Medical History: Denies Hx Arthritis Psychiatric Medical History: Reports: Hx Depression Infectious Medical History: Reports: Hx HIV - 2005, followed at [facility] Past Surgical History: Reports: Hx Cardiac Surgery - pacemaker/defib, Hx Pacemaker - With AICD, Other - PTCA at [facility]. Denies: Hx Hysterectomy - Immunizations Hx Diphtheria, Pertussis, Tetanus Vaccination: Yes Hx Pneumococcal Vaccination: 02/18/14 Review of Systems - Review of Systems Constitutional: Weakness EENT: No symptoms reported Cardiovascular: No symptoms reported Respiratory: No symptoms reported Gastrointestinal: Abdominal pain Genitourinary: No symptoms reported Female Genitourinary: No symptoms reported Musculoskeletal: No symptoms reported Skin: No symptoms reported Hematologic/Lymphatic: No symptoms reported Neurological/Psychological: Confusion, Weakness, Other - sleepiness -: Yes All other systems reviewed and negative Physical Exam - Vital signs Vitals: Resp 19 09/10/19 16:14 - Notes Notes: GENERAL: Well-appearing, well-nourished and in no acute distress. HEAD: Atraumatic, normocephalic. EYES: Pupils initially pinpoint but after Narcan were equal round and reactive to light, extraocular movements intact, sclera anicteric, conjunctiva are normal. ENT: Normal external ears, nares patent, oropharynx clear without exudates. Moist mucous membranes. NECK: Normal range of motion, supple without lymphadenopathy or JVD. LUNGS: Breath sounds clear to auscultation bilaterally and equal. No wheezes rales or rhonchi. HEART: Regular rate and rhythm without murmurs, rubs or gallops. ABDOMEN: Soft, nontender, normoactive bowel sounds. No guarding, no rebound. No masses appreciated. EXTREMITIES: Normal range of motion, no pitting or edema. No clubbing or cyanosis. NEUROLOGICAL: Right arm drift but still able to hold against gravity. Mild right facial droop. Patient is confused to some degree and she repeats herself. Slightly garbled speech. Gait not assessed. PSYCH: Normal mood, normal affect. SKIN: Warm, Dry, normal turgor, no rashes or lesions noted. Course - Re-evaluation Re-evalutation: 09/10/19 18:35 The patient is here for altered mental status and weakness. She arrived minimally responsive with pinpoint pupils. Narcan 0.4mg was given and the patient became more alert. The patient is still confused and acting odd. CT shows new stroke on left from July of 2019 when she had a previous head CT. Last known normal is not known but it sounds like the patient has had neuro symptoms for weeks. Patient is therefore not a TPA candidate. NIH stroke scale is 4 for me based on right arm drift, mild facial droop, mild garbled speech, mild confusion. Patient has ESRD and I attempted to admit the patient here at [facility] but I was told by Dr. [facility] of Nephrology to transfer the patient since there are no routine dialysis beds left in the hospital. Patient receives care at [facility] so will seek transfer there. 09/10/19 20:01 The patient was accepted at [facility]. Patient will be treated with Aspirin in the ER prior to transfer. Images will be pushed to [facility]. Patient does not exhibit signs of symptoms of COVID19. - Vital Signs Vital signs: Temp Pulse Resp BP Pulse Ox 98.2 F 87 20 90/53 L 96 09/10/19 16:30 09/10/19 16:30 09/10/19 18:09 09/10/19 18:09 09/10/19 16:30 - Laboratory Result Diagrams: 09/10/19 16:10 09/10/19 16:10 Laboratory results interpreted by me: 09/10/19 09/10/19 16:10 16:10 RBC 2.66 L Hgb 9.0 L Hct 27.0 L MCV 102 H MCH 34.0 H RDW 23.8 H Plt Count 140 L Band Neutrophils % 1 L Monocytes % (Manual) 14 H Sodium 135.4 L Chloride 97 L Creatinine 2.48 H Est GFR ( Amer) 24 L Est GFR (MDRD) Non-Af 20 L Calcium 8.0 L Total Bilirubin 1.6 H Direct Bilirubin 1.1 H AST 133 H Alkaline Phosphatase 327 H Albumin 3.2 L - Diagnostic Test Radiology reviewed: Image reviewed, Reports reviewed - EKG Interpretation by Me Rate: Normal Rhythm: Other - V paced [place]/QRS: RBBB, LPHB/LPFB Voltage: Decreased voltage Critical Care Note - Critical Care Note Total time excluding time spent on procedures (mins): 35 Discharge - Discharge Clinical Impression: Stroke Qualifiers: CVA mechanism: unspecified Qualified Code(s): I63.9 - Cerebral infarction, unspecified Opiate overdose Qualifiers: Encounter type: initial encounter Injury intent: accidental or unintentional Qualified Code(s): T40.601A - Poisoning by unspecified narcotics, accidental (unintentional), initial encounter Condition: Fair Disposition: [facility] Referrals: THIAGO COLIN MD [Primary Care Provider] - Follow up as needed
--- NOTE | 2019-09-10 18:24 | RADIOLOGY REPORT (SQ) ---
EXAM DESCRIPTION: CT HEAD WITHOUT IMAGES COMPLETED DATE/TIME: 09/10/2019 6:04 pm REASON FOR STUDY: eval for altered mental status COMPARISON: 08/12/2019 TECHNIQUE: Axial images acquired through the brain without intravenous contrast. Images reviewed wi th bone, brain and subdural windows. Additional sagittal and coronal reconstructions were generated. Images stored on PACS. All CT scanners at this facility use dose modulation, iterative reconstruction, and/or weight based d osing when appropriate to reduce radiation dose to as low as reasonably achievable (ALARA). [facility]: Dose Right [facility]: CareDose [facility]: Dose Right [facility]: Teradose 4D [facility]: Smart Fileforce RADIATION DOSE: CT Rad equipment meets quality standard of care and radiation dose reduction techniq ues were employed. CTDIvol: 53.2 mGy. DLP: 1044 mGy-cm. LIMITATIONS: Motion artifact limits the examination. FINDINGS: VENTRICLES: Normal size and contour. Cavum septum pellucidum/vergae. The cisterns are pa tent. CEREBRUM: New finding of low attenuation in the left parietal-occipital lobe suggesting infarct. Th is represents a new finding since the prior study. No evidence of midline shift, acute hemorrhage or mass effect. CEREBELLUM: No masses. No hemorrhage. No alteration of density. No evidence for acute infarction. EXTRAAXIAL SPACES: No fluid collections. No masses. ORBITS AND GLOBE: No intra- or extraconal masses. Normal contour of globe without masses. CALVARIUM: No fracture. PARANASAL SINUSES: No fluid or mucosal thickening. SOFT TISSUES: No mass or hematoma. OTHER: The patient is edentulous. IMPRESSION: 1. Since the prior study dated 08/12/2019, new finding of low attenuated area in the lef t parieto-occipital lobe suggesting infarct which is nonhemorrhagic. No evidence of midline shift, o r mass effect. EVIDENCE OF ACUTE STROKE: Yes COMMENT: 1. The results of this examination were discussed with emergency department provider on at 18:15 hours. Quality ID # [id number]: Final reports with documentation of one or more dose reduction techniques (e.g., Au tomated exposure control, adjustment of the mA and/or kV according to patient size, use of iterative reconstruction technique) TECHNICAL DOCUMENTATION: JOB ID: [id number] 2010 [employer]- All Rights Reserved Reading location - IP/workstation name: [email or web address]
[2019-09-10 18:26] VITALS: BP 90/53
--- NOTE | 2019-09-10 18:46 | EKG REPORT ---
SEVERITY:- ABNORMAL ECG - A FIB WITH VPC VS VENTRICULAR-PACED COMPLEX FIRST DEGREE AV BLOCK IRBBB AND LPFB LOW VOLTAGE THROUGHOUT : Confirmed by: Nadine Grubbs 10-Sep-2019 18:45:09
--- NOTE | 2019-09-10 19:38 | RADIOLOGY REPORT (SQ) ---
EXAM DESCRIPTION: CHEST SINGLE VIEW IMAGES COMPLETED DATE/TIME: 09/10/2019 7:24 pm REASON FOR STUDY: eval for SOB COMPARISON: 08/12/2019 EXAM PARAMETERS: NUMBER OF VIEWS: One view. TECHNIQUE: Single frontal radiographic view of the chest acquired. RADIATION DOSE: NA LIMITATIONS: None. FINDINGS: LUNGS AND PLEURA: Small right pleural effusion. Linear parenchymal density in the right mid lung size and may represent atelectasis/infiltrate or fluid within the fissure. No pneumothorax. MEDIASTINUM AND HILAR STRUCTURES: No masses. Contour normal. HEART AND VASCULAR STRUCTURES: Marked generalized cardiomegaly. Decrease in the pulmonary vascular congestion. BONES: No acute findings. HARDWARE: Cardiac pacemaker/AICD. OTHER: No other significant finding. IMPRESSION: 1. As on the prior study dated 08/12/2019, marked generalized cardiomegaly. Further shannon luation with ECHO may be helpful to exclude pericardial effusion. 2. Linear parenchymal density in the right mid lung zone may be on the basis of fluid within the fis sure versus atelectasis or infiltrate. TECHNICAL DOCUMENTATION: JOB ID: [id number] 2010 [employer]- All Rights Reserved Reading location - IP/workstation name: [email or web address]
== END | disposition short-term general hospital (02) ==
LOC: ER 15:57
DX: I63.9 Cerebral infarction, unspecified (principal); T40.601A Poisoning by unspecified narcotics, accidental (unintentional), initial encounter; R41.82 Altered mental status, unspecified; R53.1 Weakness; R10.9 Unspecified abdominal pain; G89.29 Other chronic pain; I12.0 Hypertensive chronic kidney disease with stage 5 chronic kidney disease or end stage renal disease; N18.6 End stage renal disease; E78.5 Hyperlipidemia, unspecified; I48.91 Unspecified atrial fibrillation; B20 Human immunodeficiency virus [HIV] disease; J44.9 Chronic obstructive pulmonary disease, unspecified; I25.10 Atherosclerotic heart disease of native coronary artery without angina pectoris; Z99.2 Dependence on renal dialysis; Z79.899 Other long term (current) drug therapy; F17.200 Nicotine dependence, unspecified, uncomplicated
CPT/HCPCS: 93005; 99291; 96374; 36415; 80307; 82140; 83690; 83735; 85025; 80053; 84484; 71045; 70450; 93010; A9270; J2310